=== PATIENT | male | born 1980 | race Caucasian/White ===

== ENCOUNTER 2017-05-12 21:36 | Inpatient (IN) | payer BC ==
[~2017-05-12] VITALS: Ht 182.9 cm; Wt 113.8 kg
[~2017-05-12 21:36] MED LIST: AMOX875T PO; GEMF600T3 PO; LPT40 PO; METF500T5 PO; NAPR1TAB9 PO; NEOMOIN2 TOP; NIAC1TAB56 PO; NSP500 PO; OMEG-59 PO; PRLSR20 PO; [UNRECOGNIZED DRUG - CODE] PO
[2017-05-12] MEDS ORDERED: MoRPHine SULFATE 10 MG/ML CARP/VIAL IV STA ×2 (22:11→23:24)
[2017-05-12] MEDS ORDERED: ONDANSETRON INJ 2 MG/ML 2 ML VIAL IV STA (22:11)
[2017-05-12] MEDS ORDERED: OPTIRAY 320 IV PRN (22:15)
[2017-05-12] MEDS ORDERED: SODIUM CHLORIDE 0.9% 1000ML 1,000 ML IV ONE (22:15)
[2017-05-12] MEDS ORDERED: METF-384 PO (22:38)
[2017-05-12] MEDS ORDERED: ASPEC325 PO (22:38)
[2017-05-12] MEDS ORDERED: ACET-1311 PO (22:38)
[2017-05-13 00:14] LABS: HEMATOCRIT 37.9 % (42-52); MEAN CELL VOLUME 82.2 fL (80-100); MEAN CORPUSCULAR HEMOGLOBIN 28.9 pg (25-34); MEAN CORPUSCULAR HGB CONC 35.2 g/dl (32-36); MEAN PLATELET VOLUME 9.5 fL (7.4-10.4); PLATELET COUNT 374 K/uL (130-400); RED BLOOD COUNT 4.64 M/uL (4.7-6.1); WHITE BLOOD COUNT 13.21 K/uL (4.8-10.8)
[2017-05-13 00:16] LABS: ANISOCYTOSIS PRESENT; BASO % 0.4 %; BASO ABS # 0.05 K/uL (0-0.2); COMPLETE YES; EOS % 1.3 %; IG% 1.2 %; LYMPH % 19.9 %; LYMPH ABS # 2.63 K/uL (1.2-3.4); NEUT % 70.2 %; POLYCHROMASIA 1+
[2017-05-13 01:00] LABS: ALB/GLOB RATIO 1.3 (0.9-2); BUN/CREATININE RATIO 15.5 (10-20); CREATININE 0.91 mg/dl (0.60-1.40); POTASSIUM 3.7 mmol/L (3.5-5.1)
[2017-05-13] MEDS ORDERED: ONDANSETRON INJ 2 MG/ML 2 ML VIAL IV STA (01:18)
[2017-05-13] MEDS ORDERED: HYDROmorphone INJ 0.5 MG/0.5 ML SYR IV STA (01:18)
[2017-05-13] MEDS ORDERED: GLUCOSE 10 TABS/TUBE PO PRN (02:00)
[2017-05-13] MEDS ORDERED: ONDANSETRON INJ 2 MG/ML 2 ML VIAL IV PRN (02:00)
[2017-05-13] MEDS ORDERED: GLUCOSE 40% GEL 15 GM TUBE PO PRN (02:00)
[2017-05-13] MEDS ORDERED: LORAZEPAM 2 MG/ML 1 ML VIAL IV PRN (02:00)
[2017-05-13] MEDS ORDERED: KETOROLAC TROMETHAMINE 30 MG/ML VIAL IV PRN (02:00)
[2017-05-13] MEDS ORDERED: DEXTROSE 50% 50 ML SYR IV PRN (02:00)
[2017-05-13] MEDS ORDERED: TRAMADOL HCL 50 MG TAB PO PRN (02:00)
[2017-05-13] MEDS ORDERED: ACETAMINOPHEN 325 MG TAB PO PRN (02:00)
[2017-05-13] MEDS ORDERED: GLUCAGON FOR INJ 1 MG VIAL SQ PRN (02:00)
[2017-05-13 02:04] LABS: MAGNESIUM 1.5 mg/dl (1.8-2.4)
[2017-05-13 02:52] VITALS: BP 142/92; PULSE 92; TEMP 36.9; O2SAT 97
[2017-05-13] MEDS ORDERED: INSULIN ASPART 100 UNITS/ML 3 ML PEN SC ONE (03:00)
[2017-05-13] MEDS ORDERED: INSULIN GLARGINE SOLOSTAR 100 UNITS/ML 3 ML PEN SC ONE (03:00)
[2017-05-13] MEDS: LACTATED RINGER'S 1000ML 1,000 ML IV SCH ×5 (03:26→21:18)
--- NOTE | 2017-05-13 03:28 | EMERGENCY ROOM VISIT NOTE ---
History First contact with patient: 22:05 Chief Complaint: ABDOMINAL PAIN Stated Complaint: PANCREATITIS Nursing Triage Summary: Patient reports abdominal pain. Patient has had pancreatitis in the past and states it feels like the same pain. History of Present Illness The patient is a 36 year old male who presents to the Emergency Room with complaints of epigastric abdominal pain that began acutely about one hour ago. The patient has a well-established history of pancreatitis, and he states this feels identical to those episodes. He is nauseated with emesis. He does not have fever, chills, chest pain, or lower abdominal pain. The patient has not taken anything [id number] for his symptoms. He rates his discomfort a 10/ 10. Review of Systems More than 10 systems were reviewed and otherwise negative with the exception of history of present illness. Past Medical/Surgical History Medical Problems: (1) Choledochal cyst (2) Pancreatitis (3) Pancreatitis Surgical Problems: (1) Hx of cholecystectomy Family History Cancer Diabetes mellitus Hypertension Social History Smoking Status: Former Smoker Alcohol Use: none Housing Status: lives with family Occupation Status: employed Current/Historical Medications Scheduled Aspirin (Aspirin), 325 MG PO HS Atorvastatin (Atorvastatin Calcium), 40 MG PO QPM Gemfibrozil (Lopid), 600 MG PO BID Metformin Hcl (Glucophage), 1,000 MG PO BID Niacin (Niacin ER), 500 MG PO QPM Niacin (Antihyperlipidemic) (Niacin Er), 1,000 MG PO QPM [place] 3 Fatty Acids-Evening Pr (Retaine Om3), 2 CAP PO BID Omeprazole (Prilosec), 20 MG PO DAILY Scheduled PRN Acetaminophen (Tylenol), 650 MG PO Q6 PRN for Pain Allergies Coded Allergies: No Known Allergies (Unverified , 05/12/17) Physical Exam Vital Signs Date Time Temp Pulse Resp B/P (MAP) Pulse Ox O2 Delivery O2 Flow Rate FiO2 05/13/17 01:20 81 16 131/76 99 Room Air 05/13/17 00:00 80 16 133/78 99 05/12/17 21:51 36.7 84 20 164/105 99 Room Air Pain Rating (0-10): 0 Physical Exam VITALS: Vitals are noted on the nurse's note and reviewed by myself. Vital signs stable. GENERAL: Well-developed, well-nourished, white male, who is in moderate discomfort secondary to his stated complaint. He has holding his anterior abdomen with his hands. He is cooperative with the exam. HEART: Regular rate and rhythm without murmurs gallops or rubs. LUNGS: Clear to auscultation bilaterally without wheezes, rales or rhonchi. No retractions or accessory muscle use. ABDOMEN: Positive normal bowel sounds x 4. Soft with exquisite epigastric tenderness on palpation. No lower abdominal tenderness. No CVA tenderness. Medical Decision & Procedures ER Provider Diagnostic Interpretation: Preliminary Findings Only See Final Report For Complete Findings CT ABDOMEN & PELVIS: Enlargement of the pancreas. Peripancreatic inflammation along the anterior pancreas. Findings are concerning for acute pancreatitis. No fluid collection or pseudocyst identified. The portal vein and splenic vein and superior mesenteric veins appear patent. 1.2 cm stone in the proximal right ureter without significant hydronephrosis. This is new compared to prior exam on 08/14/2015. Likely reactive inflammation of the stomach antrum/duodenal bulb. Dependent atelectasis bilaterally. Hepatic steatosis is again noted. Hepatomegaly. Status post cholecystectomy. Stable small hypodensity in the left kidney is too small to definitively characterize but likely represents a cyst. Normal appendix. No bowel obstruction or inflammation. Anastomotic suture line noted in the small bowel in the right mid abdomen. Probable punctate bone islands in the pelvic bones. Laboratory Results 05/12/17 21:20 Red Blood Count 4.64, Mean Corpuscular Volume 82.2, Mean Corpuscular Hemoglobin 28.9, Mean Corpuscular Hemoglobin Concent 35.2, Mean Platelet Volume 9.5, Neutrophils (%) (Auto) 70.2, Lymphocytes (%) (Auto) 19.9, Monocytes (%) (Auto) 7.0, Eosinophils (%) (Auto) 1.3, Basophils (%) (Auto) 0.4, Neutrophils # (Auto) 9.27, Lymphocytes # (Auto) 2.63, Monocytes # (Auto) 0.93, Eosinophils # (Auto) 0.17, Basophils # (Auto) 0.05 05/12/17 23:52 Test 05/12/17 21:20 05/12/17 23:52 White Blood Count 13.21 K/uL (4.8-10.8) Red Blood Count 4.64 M/uL (4.7-6.1) Hemoglobin 14.1 g/dL (14.0-18.0) Hematocrit 37.9 % (42-52) Mean Corpuscular Volume 82.2 fL (80-100) Mean Corpuscular Hemoglobin 28.9 pg (25-34) Mean Corpuscular Hemoglobin Concent 35.2 g/dl (32-36) Platelet Count 374 K/uL (130-400) Mean Platelet Volume 9.5 fL (7.4-10.4) Neutrophils (%) (Auto) 70.2 % Lymphocytes (%) (Auto) 19.9 % Monocytes (%) (Auto) 7.0 % Eosinophils (%) (Auto) 1.3 % Basophils (%) (Auto) 0.4 % Neutrophils # (Auto) 9.27 K/uL (1.4-6.5) Lymphocytes # (Auto) 2.63 K/uL (1.2-3.4) Monocytes # (Auto) 0.93 K/uL (0.11-0.59) Eosinophils # (Auto) 0.17 K/uL (0-0.5) Basophils # (Auto) 0.05 K/uL (0-0.2) RDW Standard Deviation 42.4 fL (36.4-46.3) RDW Coefficient of Variation 14.6 % (11.5-14.5) Immature Granulocyte % (Auto) 1.2 % Immature Granulocyte # (Auto) 0.16 K/uL (0.00-0.02) Polychromasia 1+ Anisocytosis PRESENT Anion Gap 7.0 mmol/L (3-11) Est Creatinine Clear Calc Drug Dose 146.2 ml/min Estimated GFR () 125.2 Estimated GFR (Non- 108.0 BUN/Creatinine Ratio 15.5 (10-20) Calcium Level 9.0 mg/dl (8.5-10.1) Magnesium Level 1.5 mg/dl (1.8-2.4) Total Bilirubin 0.3 mg/dl (0.2-1) Aspartate Amino Transf (AST/SGOT) 20 U/L (15-37) Alanine Aminotransferase (ALT/SGPT) 40 U/L (12-78) Alkaline Phosphatase 67 U/L (45-117) Total Protein 6.8 gm/dl (6.4-8.2) Albumin 3.9 gm/dl (3.4-5.0) Globulin 2.9 gm/dl (2.5-4.0) Albumin/Globulin Ratio 1.3 (0.9-2) Amylase Level 639 U/L (25-115) Lipase 9917 U/L (73-393) Chemistry Specimen Hemolysis Medications Administered Medications (Trade) Dose Ordered Sig/Rogelio Route Start Time Stop Time Status Last Admin Dose Admin Sodium Chloride 1,000 ml @ 999 mls/hr Q1H1M ONCE IV 05/12/17 22:15 05/12/17 23:15 DC 05/12/17 22:31 999 MLS/HR Morphine Sulfate (MoRPHine SULFATE INJ) 8 mg NOW STAT IV 05/12/17 22:11 05/12/17 22:13 DC 05/12/17 22:32 8 MG Ondansetron HCl (Zofran Inj) 4 mg NOW STAT IV 05/12/17 22:11 05/12/17 22:13 DC 05/12/17 22:31 4 MG Morphine Sulfate (MoRPHine SULFATE INJ) 8 mg NOW STAT IV 05/12/17 23:24 05/12/17 23:25 DC 05/13/17 00:04 8 MG Ondansetron HCl (Zofran Inj) 4 mg NOW STAT IV 05/13/17 01:18 05/13/17 01:19 DC 05/13/17 01:27 4 MG Hydromorphone HCl (Dilaudid Inj) 0.5 mg NOW STAT IV 05/13/17 01:18 05/13/17 01:19 DC 05/13/17 01:28 0.5 MG ED Course Physical exam and history were performed. Nursing notes, EMR, and Medication List were personally reviewed. Patient appears to have severe epigastric abdominal pain that began just prior to arrival. The patient appears very comfortable on examination. He has a history of pancreatitis. IV access was established and labs were obtained. The patient was hydrated medicated as above. CT scan was performed. The patient's blood work is as above and was reviewed. He does have a slightly elevated white blood cell count. He does not have a significant anemia or gross electrolyte imbalance. His lipase is markedly elevated at 9900. He does have elevation of his amylase as well. CT scan of his abdomen does confirm acute pancreatitis. The patient required multiple rounds of pain medication to remain comfortable here in the department. I discussed the case with the on-call [facility] hospitalist, who agreed to evaluate the patient here in the department for further Management. Please see their dictation for further patient course, plan , and disposition. The chart was completed utilizing [employer] Speech Voice Recognition Software. Grammatical errors, random word insertions, pronoun errors, and incomplete sentences are an occasional consequence of this system due to software limitations, ambient noise, and hardware issues. Any formal questions or concerns about the content, text, or information contained within the body of this dictation should be directly addressed to the provider for clarification. . Medical Decision Differential diagnosis: Etiologies such as appendicitis, diverticulitis, PUD, biliary pathology, UTI, pancreatitis, obstruction, mesenteric ischemia, aortic pathology, infections, inflammatory bowel disease, renal colic, as well as others were entertained. Impression Primary Impression: Acute pancreatitis Departure Information Dispostion Admitted as an inpatient Condition FAIR Referrals Kobi Beck DFlorindaOFlorinda (PCP) Forms Call Back Authorization, HOME CARE DOCUMENTATION FORM, IMPORTANT VISIT INFORMATION Patient Instructions [facility] Problem Qualifiers Primary Impression: Acute pancreatitis Pancreatitis type: unspecified pancreatitis type Acute pancreatitis complication: unspecified Qualified Codes: K85.90 - Acute pancreatitis without necrosis or infection, unspecified
[2017-05-13] MEDS ORDERED: NURSING VERBAL MED ORDER ONE (03:30)
[2017-05-13] MEDS ORDERED: LORAZEPAM INJ 0.5 MG in SYRINGE 0.75 ML IV PRN (03:45)
--- NOTE | 2017-05-13 04:31 | HISTORY & PHYSICAL EXAMINATION ---
DATE OF ADMISSION: 05/13/2017 PRIMARY CARE PHYSICIAN: Dr. Beck CHIEF COMPLAINT: Abdominal pain. HISTORY OF PRESENT ILLNESS: History obtained from patient and records. Medical history significant for recurrent pancreatitis, hypertriglyceridemia lipidemia (periodic plasmapheresis), past tobacco abuse, choledochal cyst status post surgery, DM2 on oral meds. Recent confinement July 2015 for recurrent pancreatitis. Resolved with conservative management. Px undergoes plasmapheresis for hypertriglyceridemia at [facility] every other week. Last night, patient had achy epigastric pain going down his belly with nausea and vomiting reminiscent of pancreatitis pain. No fever, no chills. Viral illness last week as per patient. He had 2 hotdogs and cheesy broccoli at home. MEDICAL HISTORY: As above. SURGERIES: Tonsillectomy, discectomy, choledocholithiasis surgery. HOME MEDICATIONS: Include niacin, Prilosec, Tylenol, aspirin, atorvastatin, Lopid, Glucophage. ALLERGIES: No known drug allergies. FAMILY HISTORY: Heart disease, diabetes. PERSONAL AND SOCIAL HISTORY: Past tobacco abuse. No intake of alcoholic beverages. [employer] employee. REVIEW OF SYSTEMS: As per HPI, all other ROS negative. PHYSICAL EXAMINATION: VITAL SIGNS: Blood pressure initially 164/105 and later 135/76, pulse rate 81, RR 16, temperature 36.7, sats 98 on room air. GENERAL: Noted to be obese, slightly uncomfortable. No respiratory distress. SKIN: Normal color. HEENT: [place] palpebral conjunctivae. Dry mucosa. NECK: No JVD. Supple. CHEST: Clear to auscultation. HEART: Regular rate and rhythm. ABDOMEN: Some distention. Healed incisional scar. No overt tenderness. EXTREMITIES: No edema. Nontender. NEUROLOGIC: No gross focality. LABS: Hemoglobin was noted to be 14.1, hematocrit 37.9, white cells 13.6, platelets 200. Sodium 140, potassium 3.7, chloride 109, CO2 of 26, BUN 40, creatinine 0.9, glucose was noted to be 194. Lipase was noted to be 99K. April 2017 triglycerides 1671. Hemoglobin A1c from March 2017 was 7. 6. ASSESSMENT: 1. Recurrent pancreatitis history of hypertriglyceridemia, [place] [facility] of choledochal cyst status post surgery 2. DM2 reasonable control as of recent outxp HgA1c 3. past tobacco abuse. PLAN: GMF IV fluids, analgesia, bowel rest. Follow lipase. Check serum triglyceride levels. GI consult. RE Recurrent pancreatitis Basal insulin, ISS BG goal 140-180. DVT prophylaxis with Lovenox subQ. Full code. MTDD
[2017-05-13] MEDS: HYDROmorphone INJ 0.5 MG/0.5 ML SYR IV PRN ×3 (04:40→18:20)
[2017-05-13] MEDS: MAGNESIUM SULFATE 1GM / D5W 1 GM in PREMIXED IN D5W 100 ML IV SCH ×2 (04:46→05:55)
[2017-05-13 04:55] VITALS: BP 142/92; PULSE 92; TEMP 36.9; Ht 182.9 cm; Wt 113.8 kg
[2017-05-13] MEDS: INSULIN ASPART 100 UNITS/ML 3 ML PEN SC SCH ×4 (06:37→20:42)
[2017-05-13 07:03] LABS: BASO % 0.2 %; BASO ABS # 0.03 K/uL (0-0.2); COMPLETE YES; EOS % 0.6 %; IG% 0.5 %; LYMPH % 14.1 %; LYMPH ABS # 1.84 K/uL (1.2-3.4); MEAN CORPUSCULAR HEMOGLOBIN 30.3 pg (25-34); MEAN CORPUSCULAR HGB CONC 37.4 g/dl (32-36); MEAN PLATELET VOLUME 9.1 fL (7.4-10.4); MONO % 4.8 %; NEUT % 79.8 %; PLATELET COUNT 264 K/uL (130-400); RED BLOOD COUNT 4.32 M/uL (4.7-6.1); WHITE BLOOD COUNT 13.03 K/uL (4.8-10.8)
--- NOTE | 2017-05-13 07:22 | DIAGNOSTIC IMAGING REPORT ---
CT OF THE ABDOMEN AND PELVIS WITH CONTRAST CLINICAL HISTORY: Epigastric pain, nausea and vomiting. History of pancreatitis. COMPARISON STUDY: CT of the abdomen and pelvis August 14, 2015. TECHNIQUE: Following IV administration of 118 mL of Optiray-320, axial images of the abdomen and pelvis were obtained from the lung bases to the proximal femurs. Images were reviewed in the axial, sagittal, and coronal planes. IV contrast was administered without complication. A dose lowering technique was utilized adhering to the principles of ALARA. CT DOSE: 1139.36 mGycm FINDINGS: Airspace opacities within visualized portions the lower lobes favor atelectasis. There is fatty infiltration of liver. There is trace pneumobilia. There is no biliary ductal dilatation status post cholecystectomy. Moderate peripancreatic infiltration centered on the pancreatic head is noted. There is no pancreatic ductal dilatation. The splenic vein is patent. No pseudoaneurysm is identified on this non-CTA exam. There is no evidence for a bowel obstruction. Note is made of a 1.2 x 0.8 cm proximal right ureteral calculus without significant hydronephrosis. The bowel anastomosis is noted. The appendix is normal. There is no lymphadenopathy within the pelvis. No suspicious osseous lesions are present. A hypodense left renal lesion is too small to characterize but unchanged since prior CT. The spleen and adrenal glands are unremarkable. IMPRESSION: 1. Moderate peripancreatic infiltration consistent with acute pancreatitis. No peripancreatic fluid collection. No evidence of gland necrosis by CT. 2. 1.2 x 0.8 cm proximal right ureteral calculus without hydronephrosis. 3. Fatty liver. Trace pneumobilia. No biliary or pancreatic ductal dilatation. Electronically signed by: Jeffy Ayala M.D. 05/13/2017 7:20 AM Dictated Date/Time: 05/13/2017 7:11 AM
[2017-05-13 07:31] VITALS: BP 155/88; PULSE 86; TEMP 37.2; O2SAT 95
[2017-05-13 07:46] LABS: PROTHROMBIN TIME (PATIENT) 10.5 SECONDS (9.0-12.0)
[2017-05-13 08:25] LABS: ALKALINE PHOSPHATASE 62 U/L (45-117); BLOOD UREA NITROGEN 11 mg/dl (7-18); CALCIUM 7.9 mg/dl (8.5-10.1); CARBON DIOXIDE 27 mmol/L (21-32); CHLORIDE 103 mmol/L (98-107); CREATININE 0.85 mg/dl (0.60-1.40); GLUCOSE 187 mg/dl (70-99); SODIUM 139 mmol/L (136-145)
[2017-05-13 08:26] LABS: ALT/SGPT 36 U/L (12-78); BUN/CREATININE RATIO 12.5 (10-20)
[2017-05-13] MEDS: PANTOprazole SOD 40 MG TAB PO SCH (09:17)
[2017-05-13] MEDS: ENOXAPARIN 40 MG/0.4 ML SYR SQ SCH (09:18)
[2017-05-13 09:53] LABS: MAGNESIUM 2.3 mg/dl (1.8-2.4)
--- NOTE | 2017-05-13 10:53 | Gastrointestinal Consultation ---
Gastrointestinal Consultation Date of Consultation: May 13, 2017 Attending Physician: Ranjith Rodriguez Consulting Physician: Ray Crane Reason for Consultation: Pancreatitis History of Present Illness Patient is a 36 year old male who presented yesterday to ED w c/o RUQ/ epigastric abd pain, n/v. He has hx of recurrent pancreatitis secondary to hypertriglyceridemia, also had choledochal cyst resection, s/p cholecystectomy. He undergoes plasmapheresis for his triglyceridemia every other week, is on Niacin, ASA, Lopid, Lipitor, and within the last month his Metformin dose is increased to 1g BID. He was eating cheesy broccoli and hot dogs when his symptoms started. Upon eval in ED, labs showed leukocytosis WBC 13K, no anemia, chem panel w normal LFTs, Lipase over 9K, TG 2716. He had CT abd/pelvis peripancreatic infiltration on pancreas head area, w/o necrosis or fluid collection noted. He was admitted for pancreatitis management, kept NPO, LR IVF started. He was afebrile overnight, hemodynamically stable, renal function normal. Lipase decreased now to 3K, he is reporting less abd pain, no n/v, is passing some flatus but no BMs. Past Medical/Surgical History Medical Problems: (1) Acute pancreatitis Status: Acute (2) Dehydration Status: Acute (3) Postoperative abdominal pain Status: Acute (4) Vomiting Status: Acute Past Medical History: As above, DM II Past Surgical History: As above, Tonsillectomy & Adenoidectomy Family History Cancer Diabetes mellitus Hypertension Social History Smoking Status: Current Every Day Smoker Alcohol Use: none Drug Use: none Housing Status: lives with family Occupation Status: employed Allergies Coded Allergies: No Known Allergies (Unverified , 05/12/17) Current Medications Home Meds and Scripts Medications Dose Route/Sig Max Daily Dose Days Date Category Dose Instructions Tylenol (Acetaminophen) 325 Mg Tab 650 Mg PO Q6 PRN 05/12/17 Reported Aspirin 325 Mg Ectab 325 Mg PO HS 05/12/17 Reported Glucophage (Metformin Hcl) 1,000 Mg Tab 1,000 Mg PO BID 05/12/17 Reported Niacin Er (Niacin (Antihyperlipidemic)) 1,000 Mg Tab 1,000 Mg PO QPM 05/15/15 Reported TAKE WITH NIACIN ER 500MG TO EQUAL 1,500MG DOSE Niacin ER (Niacin) 500 Mg Tabcr 500 Mg PO QPM 05/15/15 Reported TAKE WITH NIACIN ER 1,000MG TO EQUAL 1,500MG DOSE Atorvastatin Calcium (Atorvastatin) 40 Mg Tab 40 Mg PO QPM 05/15/15 Reported Retaine Om3 ([place] 3 Fatty Acids-Evening Pr) 1 Cap Cap 2 Cap PO BID 05/15/15 Reported Prilosec (Omeprazole) 20 Mg Capcr 20 Mg PO DAILY 06/03/14 Reported Lopid (Gemfibrozil) 600 Mg Tab 600 Mg PO BID 06/03/14 Reported Review of Systems Constitutional: No fever, No chills Respiratory: No cough, No shortness of breath Cardiac: No chest pain, No edema Abdomen: + pain (improved), No nausea, No vomiting Physical Exam Date Time Temp Pulse Resp B/P (MAP) Pulse Ox O2 Delivery O2 Flow Rate FiO2 05/13/17 07:31 37.2 86 18 155/88 (110) 95 Room Air 05/13/17 04:55 36.9 92 20 142/92 Room Air 05/13/17 02:52 36.9 92 20 142/92 (109) 97 Room Air 05/13/17 01:20 81 16 131/76 99 Room Air 05/13/17 00:00 80 16 133/78 99 05/12/17 21:51 36.7 84 20 164/105 99 Room Air General Appearance: WD/WN, no apparent distress Eyes: normal inspection, PERRL, EOMI Neck: supple, no JVD, trachea midline Respiratory/Chest: normal breath sounds, no respiratory distress, no accessory muscle use Cardiovascular: regular rate, rhythm, no gallop, no murmur Abdomen: normal bowel sounds, soft, + tenderness (RUQ) Extremities: normal inspection, no pedal edema, no calf tenderness Neurologic/Psych: alert, normal mood/affect, oriented x 3 Skin: normal color, no jaundice, no rash Laboratory Results Last 24 Hours Test 05/12/17 21:20 05/12/17 22:20 05/12/17 23:52 05/13/17 03:32 White Blood Count 13.21 K/uL Red Blood Count 4.64 M/uL Hemoglobin 14.1 g/dL Hematocrit 37.9 % Mean Corpuscular Volume 82.2 fL Mean Corpuscular Hemoglobin 28.9 pg Mean Corpuscular Hemoglobin Concent 35.2 g/dl Platelet Count 374 K/uL Mean Platelet Volume 9.5 fL Neutrophils (%) (Auto) 70.2 % Lymphocytes (%) (Auto) 19.9 % Monocytes (%) (Auto) 7.0 % Eosinophils (%) (Auto) 1.3 % Basophils (%) (Auto) 0.4 % Neutrophils # (Auto) 9.27 K/uL Lymphocytes # (Auto) 2.63 K/uL Monocytes # (Auto) 0.93 K/uL Eosinophils # (Auto) 0.17 K/uL Basophils # (Auto) 0.05 K/uL RDW Standard Deviation 42.4 fL RDW Coefficient of Variation 14.6 % Immature Granulocyte % (Auto) 1.2 % Immature Granulocyte # (Auto) 0.16 K/uL Polychromasia 1+ Anisocytosis PRESENT Triglycerides Level 2716 mg/dl Sodium Level 142 mmol/L Potassium Level 3.7 mmol/L Chloride Level 109 mmol/L Carbon Dioxide Level 26 mmol/L Anion Gap 7.0 mmol/L Blood Urea Nitrogen 14 mg/dl Creatinine 0.91 mg/dl Est Creatinine Clear Calc Drug Dose 146.2 ml/min Estimated GFR () 125.2 Estimated GFR (Non- 108.0 BUN/Creatinine Ratio 15.5 Random Glucose 194 mg/dl Calcium Level 9.0 mg/dl Magnesium Level 1.5 mg/dl Total Bilirubin 0.3 mg/dl Aspartate Amino Transf (AST/SGOT) 20 U/L Alanine Aminotransferase (ALT/SGPT) 40 U/L Alkaline Phosphatase 67 U/L Total Protein 6.8 gm/dl Albumin 3.9 gm/dl Globulin 2.9 gm/dl Albumin/Globulin Ratio 1.3 Amylase Level 639 U/L Lipase 9917 U/L Chemistry Specimen Hemolysis Bedside Glucose 169 mg/dl Test 05/13/17 06:33 05/13/17 06:40 05/13/17 08:31 Bedside Glucose 156 mg/dl White Blood Count 13.03 K/uL Red Blood Count 4.32 M/uL Hemoglobin 13.1 g/dL Hematocrit 35.0 % Mean Corpuscular Volume 81.0 fL Mean Corpuscular Hemoglobin 30.3 pg Mean Corpuscular Hemoglobin Concent 37.4 g/dl Platelet Count 264 K/uL Mean Platelet Volume 9.1 fL Neutrophils (%) (Auto) 79.8 % Lymphocytes (%) (Auto) 14.1 % Monocytes (%) (Auto) 4.8 % Eosinophils (%) (Auto) 0.6 % Basophils (%) (Auto) 0.2 % Neutrophils # (Auto) 10.39 K/uL Lymphocytes # (Auto) 1.84 K/uL Monocytes # (Auto) 0.63 K/uL Eosinophils # (Auto) 0.08 K/uL Basophils # (Auto) 0.03 K/uL RDW Standard Deviation 42.4 fL RDW Coefficient of Variation 14.5 % Immature Granulocyte % (Auto) 0.5 % Immature Granulocyte # (Auto) 0.06 K/uL Nucleated RBC Absolute Count (auto) 0.12 K/uL Nucleated Red Blood Cells % 0.9 % Prothrombin Time 10.5 SECONDS Prothromb Time International Ratio 1.0 Activated Partial Thromboplast Time 27.0 SECONDS Partial Thromboplastin Ratio 1.0 Sodium Level 139 mmol/L Potassium Level mmol/L 4.0 mmol/L Carbon Dioxide Level 27 mmol/L Anion Gap 9.0 mmol/L Blood Urea Nitrogen 11 mg/dl Creatinine 0.85 mg/dl Est Creatinine Clear Calc Drug Dose 156.5 ml/min Estimated GFR () 129.9 Estimated GFR (Non- 112.1 BUN/Creatinine Ratio 12.5 Random Glucose 187 mg/dl Calcium Level 7.9 mg/dl Magnesium Level mg/dl 2.3 mg/dl Total Bilirubin 0.7 mg/dl Aspartate Amino Transf (AST/SGOT) U/L 19 U/L Alanine Aminotransferase (ALT/SGPT) 36 U/L Alkaline Phosphatase 62 U/L Total Protein 6.9 gm/dl Albumin 3.5 gm/dl Globulin 3.4 gm/dl Albumin/Globulin Ratio 1.0 Lipase 3641 U/L Impression Patient is a 36 year old male w hx of recurrent pancreatitis secondary to hypertriglyceridemia, s/p choledochal cyst resection, cholecystectomy; presented to ED w s/s of RUQ & epigastric pain, n/v after eating a fatty meal. Imaging studies, labs consistent w acute pancreatitis w/o fluid collection or necrosis. Plan - LR @ 200ml/hr - Ok to start CL diet; eventually may advance to low fat/low cholesterol meal - Symptomatic management w antiemetics and analgesics prn - Continue hypertriglyceridemia/DM med management & plasmapheresis per Cardiology. I saw and evaluated the patient. He presents with recurrent pancreatitis which is thought to be related to his history of familial triglyceridemia. 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 At this time I would suggest continued IV hydration and a liquid diet as you're doing. I would also suggest follow-up evaluation with his cardiology provider to determine if his plasmapheresis should be altered. Please call with any questions or concerns during the remainder of this admission. Recommendations IV hydration with LR 200 mL per hour Clear liquid diet today Daily labs Cardiology evaluation Please call with any questions or concerns
[2017-05-13 15:20] VITALS: BP 163/95; PULSE 94; TEMP 37.6; O2SAT 95
--- NOTE | 2017-05-13 16:39 | Progress Note ---
Internal Med Progress Note Date of Service: May 13, 2017. Provider Documentation: SUBJECTIVE: resting comfortably abdominal apin and nausea better tolerating clears afebrile no sob OBJECTIVE: Vital Signs-as noted below Exam: General-alert and oriented. Not in distress ENT-normal hearing Neck-no neck masses Lungs-cta b/l no wheezing no crackles present Heart-s1 and s2 heard regular rhythm, no murmurs Abdomen-soft bowel sounds present mild diffuse tender no distension Extremities no edema present no erythema Neuro-alert and oriented moves extremities Lab data as noted below. ASSESSMENT & PLAN: 1. 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 DM2 reasonable control as of recent outxp HgA1c Holding metformin.ISS. Will monitor. 3. past tobacco abuse DVT PROPHYLAXIS Lovenox DISPOSITION to be determined Vital Signs: Date Time Temp Pulse Resp B/P (MAP) Pulse Ox O2 Delivery O2 Flow Rate FiO2 05/13/17 15:20 37.6 94 18 163/95 (117) 95 Room Air 05/13/17 11:06 Room Air 05/13/17 07:31 37.2 86 18 155/88 (110) 95 Room Air 05/13/17 04:55 36.9 92 20 142/92 Room Air 05/13/17 02:52 36.9 92 20 142/92 (109) 97 Room Air 05/13/17 01:20 81 16 131/76 99 Room Air 05/13/17 00:00 80 16 133/78 99 05/12/17 21:51 36.7 84 20 164/105 99 Room Air Lab Results: Results Past 24 Hours Test 05/12/17 21:20 05/12/17 22:20 05/12/17 23:52 05/13/17 03:32 Range/Units White Blood Count 13.21 4.8-10.8 K/uL Red Blood Count 4.64 4.7-6.1 M/uL Hemoglobin 14.1 14.0-18.0 g/dL Hematocrit 37.9 42-52 % Mean Corpuscular Volume 82.2 80-100 fL Mean Corpuscular Hemoglobin 28.9 25-34 pg Mean Corpuscular Hemoglobin Concent 35.2 32-36 g/dl Platelet Count 374 130-400 K/uL Mean Platelet Volume 9.5 7.4-10.4 fL Neutrophils (%) (Auto) 70.2 % Lymphocytes (%) (Auto) 19.9 % Monocytes (%) (Auto) 7.0 % Eosinophils (%) (Auto) 1.3 % Basophils (%) (Auto) 0.4 % Neutrophils # (Auto) 9.27 1.4-6.5 K/uL Lymphocytes # (Auto) 2.63 1.2-3.4 K/uL Monocytes # (Auto) 0.93 0.11-0.59 K/uL Eosinophils # (Auto) 0.17 0-0.5 K/uL Basophils # (Auto) 0.05 0-0.2 K/uL RDW Standard Deviation 42.4 36.4-46.3 fL RDW Coefficient of Variation 14.6 11.5-14.5 % Immature Granulocyte % (Auto) 1.2 % Immature Granulocyte # (Auto) 0.16 0.00-0.02 K/uL Polychromasia 1+ Anisocytosis PRESENT Triglycerides Level 2716 0-150 mg/dl Sodium Level 142 136-145 mmol/L Potassium Level 3.7 3.5-5.1 mmol/L Chloride Level 109 98-107 mmol/L Carbon Dioxide Level 26 21-32 mmol/L Anion Gap 7.0 3-11 mmol/L Blood Urea Nitrogen 14 7-18 mg/dl Creatinine 0.91 0.60-1.40 mg/dl Est Creatinine Clear Calc Drug Dose 146.2 ml/min Estimated GFR () 125.2 Estimated GFR (Non- 108.0 BUN/Creatinine Ratio 15.5 10-20 Random Glucose 194 70-99 mg/dl Calcium Level 9.0 8.5-10.1 mg/dl Magnesium Level 1.5 1.8-2.4 mg/dl Total Bilirubin 0.3 0.2-1 mg/dl Aspartate Amino Transf (AST/SGOT) 20 15-37 U/L Alanine Aminotransferase (ALT/SGPT) 40 12-78 U/L Alkaline Phosphatase 67 45-117 U/L Total Protein 6.8 6.4-8.2 gm/dl Albumin 3.9 3.4-5.0 gm/dl Globulin 2.9 2.5-4.0 gm/dl Albumin/Globulin Ratio 1.3 0.9-2 Amylase Level 639 25-115 U/L Lipase 9917 73-393 U/L Chemistry Specimen Hemolysis Bedside Glucose 169 70-99 mg/dl Test 05/13/17 06:33 05/13/17 06:40 05/13/17 08:31 05/13/17 11:27 Range/Units Bedside Glucose 156 150 70-99 mg/dl White Blood Count 13.03 4.8-10.8 K/uL Red Blood Count 4.32 4.7-6.1 M/uL Hemoglobin 13.1 14.0-18.0 g/dL Hematocrit 35.0 42-52 % Mean Corpuscular Volume 81.0 80-100 fL Mean Corpuscular Hemoglobin 30.3 25-34 pg Mean Corpuscular Hemoglobin Concent 37.4 32-36 g/dl Platelet Count 264 130-400 K/uL Mean Platelet Volume 9.1 7.4-10.4 fL Neutrophils (%) (Auto) 79.8 % Lymphocytes (%) (Auto) 14.1 % Monocytes (%) (Auto) 4.8 % Eosinophils (%) (Auto) 0.6 % Basophils (%) (Auto) 0.2 % Neutrophils # (Auto) 10.39 1.4-6.5 K/uL Lymphocytes # (Auto) 1.84 1.2-3.4 K/uL Monocytes # (Auto) 0.63 0.11-0.59 K/uL Eosinophils # (Auto) 0.08 0-0.5 K/uL Basophils # (Auto) 0.03 0-0.2 K/uL RDW Standard Deviation 42.4 36.4-46.3 fL RDW Coefficient of Variation 14.5 11.5-14.5 % Immature Granulocyte % (Auto) 0.5 % Immature Granulocyte # (Auto) 0.06 0.00-0.02 K/uL Nucleated RBC Absolute Count (auto) 0.12 0-0 K/uL Nucleated Red Blood Cells % 0.9 % Prothrombin Time 10.5 9.0-12.0 SECONDS Prothromb Time International Ratio 1.0 0.9-1.1 Activated Partial Thromboplast Time 27.0 21.0-31.0 SECONDS Partial Thromboplastin Ratio 1.0 Sodium Level 139 136-145 mmol/L Potassium Level 4.0 3.5-5.1 mmol/L Carbon Dioxide Level 27 21-32 mmol/L Anion Gap 9.0 3-11 mmol/L Blood Urea Nitrogen 11 7-18 mg/dl Creatinine 0.85 0.60-1.40 mg/dl Est Creatinine Clear Calc Drug Dose 156.5 ml/min Estimated GFR () 129.9 Estimated GFR (Non- 112.1 BUN/Creatinine Ratio 12.5 10-20 Random Glucose 187 70-99 mg/dl Calcium Level 7.9 8.5-10.1 mg/dl Magnesium Level 2.3 1.8-2.4 mg/dl Total Bilirubin 0.7 0.2-1 mg/dl Aspartate Amino Transf (AST/SGOT) 19 15-37 U/L Alanine Aminotransferase (ALT/SGPT) 36 12-78 U/L Alkaline Phosphatase 62 45-117 U/L Total Protein 6.9 6.4-8.2 gm/dl Albumin 3.5 3.4-5.0 gm/dl Globulin 3.4 2.5-4.0 gm/dl Albumin/Globulin Ratio 1.0 0.9-2 Lipase 3641 73-393 U/L
[2017-05-13 16:43] VITALS: O2SAT 95
[2017-05-13] MEDS: ASPIRIN 325 MG ECTAB PO SCH (20:36)
[2017-05-13 23:33] VITALS: BP 145/76; PULSE 93; TEMP 37.3; O2SAT 94
[2017-05-14] MEDS: HYDROmorphone INJ 0.5 MG/0.5 ML SYR IV PRN (00:56)
[2017-05-14] MEDS: LACTATED RINGER'S 1000ML 1,000 ML IV SCH ×3 (02:24→15:58)
[2017-05-14] MEDS ORDERED: NURSING DECISION MEDICATION ORDER SCH (02:45)
[2017-05-14 07:48] VITALS: BP 120/79; PULSE 94; TEMP 37.2; O2SAT 97
[2017-05-14] MEDS: ENOXAPARIN 40 MG/0.4 ML SYR SQ SCH (07:52)
[2017-05-14] MEDS: PANTOprazole SOD 40 MG TAB PO SCH (07:52)
[2017-05-14] MEDS: INSULIN GLARGINE SOLOSTAR 100 UNITS/ML 3 ML PEN SC SCH (07:57)
[2017-05-14] MEDS: INSULIN ASPART 100 UNITS/ML 3 ML PEN SC SCH ×4 (07:57→20:32)
[2017-05-14 10:09] LABS: BUN/CREATININE RATIO 7.2 (10-20); CALCIUM 9.1 mg/dl (8.5-10.1); CREATININE 0.79 mg/dl (0.60-1.40); POTASSIUM 3.4 mmol/L (3.5-5.1)
[2017-05-14 10:13] LABS: HEMATOCRIT 36.5 % (42-52); MEAN CELL VOLUME 82.4 fL (80-100); MEAN CORPUSCULAR HEMOGLOBIN 27.8 pg (25-34); MEAN CORPUSCULAR HGB CONC 33.7 g/dl (32-36); MEAN PLATELET VOLUME 9.4 fL (7.4-10.4); PLATELET COUNT 217 K/uL (130-400); RED BLOOD COUNT 4.43 M/uL (4.7-6.1); WHITE BLOOD COUNT 10.86 K/uL (4.8-10.8)
--- NOTE | 2017-05-14 10:13 | Gastroenterology Progress Note ---
Progress Note Date of Service: May 14, 2017 Subjective Pt evaluation today including: conversation w/ patient, physical exam, chart review, lab review, review of inpatient medication list Pt feels much better than yesterday, denies any abd pain, n/v. Tolerating CL diet. Did have mild fever yesterday afternoon 37.6, none since then. AM labs pending. Review of Systems Constitutional: No fever, No chills Respiratory: No cough, No shortness of breath Cardiac: No chest pain Abdomen: No pain, No nausea, No vomiting Medications Current Inpatient Medications Medications (Trade) Dose Ordered Sig/Rogelio Route Start Time Stop Time Status Last Admin Dose Admin Ioversol (Optiray 320) 100 ml UD PRN IV 05/12/17 22:15 05/16/17 22:14 Lactated Ringer's 1,000 ml @ 75 mls/hr [id number] IV 05/13/17 01:30 06/12/17 01:29 05/14/17 07:53 200 MLS/HR Insulin Glargine (Lantus Solostar Pen) 5 units DAILY SC 05/14/17 09:00 06/13/17 08:59 05/14/17 07:57 5 UNITS Glucose (Glucose 40% Gel) 15-30 GRAMS 15 GRAMS... UD PRN PO 05/13/17 02:00 06/12/17 01:59 Glucose (Glucose Chew Tab) 4-8 Tablets 4 Tabl... UD PRN PO 05/13/17 02:00 06/12/17 01:59 Dextrose (Dextrose 50% 50ML Syringe) 25-50ML OF 50% DW IV FOR... UD PRN IV 05/13/17 02:00 06/12/17 01:59 Glucagon (Glucagon Inj) 1 mg UD PRN SQ 05/13/17 02:00 06/12/17 01:59 Enoxaparin Sodium (Lovenox Inj) 40 mg Q24H SQ 05/13/17 09:00 06/12/17 08:59 05/14/17 07:52 40 MG Acetaminophen (Tylenol Tab) 650 mg Q4H PRN PO 05/13/17 02:00 06/12/17 01:59 05/13/17 09:18 650 MG Aspirin (Ecotrin Tab) 325 mg HS PO 05/13/17 21:00 06/12/17 20:59 05/13/17 20:36 325 MG Pantoprazole Sodium (Protonix Tab) 40 mg QAM PO 05/13/17 09:00 06/12/17 08:59 05/14/17 07:52 40 MG Ketorolac Tromethamine (Toradol Inj) 30 mg Q6H PRN IV 05/13/17 02:00 05/18/17 01:59 Hydromorphone HCl (Dilaudid Inj) 0.5 mg Q3H PRN IV 05/13/17 02:00 05/27/17 01:59 05/14/17 00:56 0.5 MG Lorazepam (Ativan Inj) 0.5 mg Q4H PRN IV 05/13/17 02:00 06/12/17 01:59 Ondansetron HCl (Zofran Inj) 4 mg Q6H PRN IV 05/13/17 02:00 06/12/17 01:59 Tramadol HCl (Ultram Tab) not relieved ... Q6H PRN PO 05/13/17 02:00 06/12/17 01:59 Lorazepam 0.5 mg/ Syringe 1 ml @ 1 mls/min Q4H PRN IV 05/13/17 03:45 06/12/17 03:44 05/13/17 21:18 1 MLS/MIN Insulin Aspart (novoLOG ASPART) SLIDING SCALE If C... ACHS SC 05/14/17 06:30 06/13/17 06:29 05/14/17 07:57 3 UNITS Objective Vital Signs Date Time Temp Pulse Resp B/P (MAP) Pulse Ox O2 Delivery O2 Flow Rate FiO2 05/14/17 07:48 37.2 94 18 120/79 (93) 97 Room Air 05/14/17 07:23 Room Air 05/14/17 00:00 Room Air 05/13/17 23:33 37.3 93 20 145/76 (99) 94 Room Air 05/13/17 16:43 95 Room Air 05/13/17 15:20 37.6 94 18 163/95 (117) 95 Room Air 05/13/17 11:06 Room Air Physical Exam General Appearance: WD/WN, no apparent distress, + obese Eyes: normal inspection, PERRL, EOMI Neck: supple, no JVD, trachea midline Respiratory/Chest: normal breath sounds, no respiratory distress, no accessory muscle use Cardiovascular: regular rate, rhythm, no gallop, no murmur Abdomen: normal bowel sounds, non tender, soft Extremities: normal inspection, no pedal edema, no calf tenderness Neurologic/Psych: alert, normal mood/affect, oriented x 3 Skin: normal color, no jaundice, no rash Laboratory Results Last 24 Hours Test 05/13/17 11:27 05/13/17 18:06 05/13/17 19:46 05/14/17 07:44 Bedside Glucose 150 mg/dl 195 mg/dl 184 mg/dl 140 mg/dl Test 05/14/17 09:15 Assessment and Plan Patient is a 36 year old male w hx of recurrent pancreatitis secondary to hypertriglyceridemia, s/p choledochal cyst resection, cholecystectomy; presented to ED w s/s of RUQ & epigastric pain, n/v after eating a fatty meal. Imaging studies, labs consistent w acute pancreatitis w/o fluid collection or necrosis. He denies any more abd pain, n/v. Tolerating CL diet, AM labs pending. Plans - LR decreased to 75ml/hr - FL diet, advance as tolerated to low fat/low cholesterol meal - Symptomatic management w antiemetics and analgesics prn - Continue hypertriglyceridemia/DM med management & plasmapheresis per Cardiology. - Should be ready for DC by tomorrow. I saw and evaluated the patient. He notes feeling improved today and is without abdominal discomfort. He did tolerate a full liquid diet today. Recommendations Consider obtaining a lipase level today Continue with IV hydration If labs improved and pain-free consider advancing to a low-fat diet and consider planning for discharge on Wednesday. Please call with any questions or concerns GI to sign off
[2017-05-14] MEDS ORDERED: POTASSIUM CHLORIDE 20 MEQ TABCR PO ONE (11:00)
--- NOTE | 2017-05-14 11:23 | Cardiology Consultation ---
Cardiology Consultation Date of Consultation: May 14, 2017 History of Present Illness Jakob Wilhelm is a 36 year old male seen in cardiology consultation per the request of Dr. Rodriguez given presentation with recurrent pancreatitis, and history of familial hypertriglyceridemia. The patient's primary bobcat driver/labor is Dr. Juan Manuel Sanchez. The patient was admitted after presenting to the emergency department on with complaints of severe abdominal pain. He was placed on interval of bowel rest, and is received pain medication and IV fluid resuscitation and today he notes significant symptomatic improvement. He graded his admission pain as 8/10 intensity, and today he states his discomfort is a 1/10 intensity at the lower aspect of his abdomen. He is in good spirits, and tolerated a liquid diet today. The patient is followed as an outpatient for severe hypertriglyceridemia despite multiple medications. He is previously been admitted to the hospital in 2013, and on 2 separate occasions in 2014 as well as the current hospital stay. He has routine plasmapheresis about every other week [place] [facility] [place] adjunctive treatment for his hypertriglyceridemia. His most recent treatment was on 05/05/17, and he is scheduled to have an additional treatment on 05/19/17. Time his most recent outpatient follow-up visit with Dr. Sanchez on 04/26/17, the patient was feeling well. Review of recent outpatient [facility] labs includes triglycerides level of 2471 on 04/07/17, 3766 on 04/21/17, and 1671 on 05/05/17 the day of his most recent plasmapheresis therapy. History of this or level presentation in the emergency room dated 05/12/17 was 2716 mg/dL. The serum lipase of 9917 units per liter on admission has trended down to 3641 units per liter. Patient's magnesium was 1??5 on admission and was normalized to 2??3 mg/dL yesterday 05/13/17. Past Medical/Surgical History Problem List: Medical Problems: (1) Choledochal cyst (2) Pancreatitis (3) Pancreatitis (4) suspect underlying familial hypertriglyceridemia Surgical Problems: (1) Hx of cholecystectomy Review Of Systems See above for pertinent positives & negatives. A total of 10 systems reviewed and were otherwise negative. Allergies Coded Allergies: No Known Allergies (Unverified , 05/12/17) Medications Reported Home Medications Medications Dose Route/Sig Max Daily Dose Days Date Category Dose Instructions Tylenol (Acetaminophen) 325 Mg Tab 650 Mg PO Q6 PRN 05/12/17 Reported Aspirin 325 Mg Ectab 325 Mg PO HS 05/12/17 Reported Glucophage (Metformin Hcl) 1,000 Mg Tab 1,000 Mg PO BID 05/12/17 Reported Niacin Er (Niacin (Antihyperlipidemic)) 1,000 Mg Tab 1,000 Mg PO QPM 05/15/15 Reported TAKE WITH NIACIN ER 500MG TO EQUAL 1,500MG DOSE Niacin ER (Niacin) 500 Mg Tabcr 500 Mg PO QPM 05/15/15 Reported TAKE WITH NIACIN ER 1,000MG TO EQUAL 1,500MG DOSE Atorvastatin Calcium (Atorvastatin) 40 Mg Tab 40 Mg PO QPM 05/15/15 Reported Retaine Om3 (Elysian 3 Fatty Acids-Evening Pr) 1 Cap Cap 2 Cap PO BID 05/15/15 Reported Prilosec (Omeprazole) 20 Mg Capcr 20 Mg PO DAILY 06/03/14 Reported Lopid (Gemfibrozil) 600 Mg Tab 600 Mg PO BID 06/03/14 Reported Physical Exam Vital Signs (Last 8hrs): Last 8 Hrs Date Time Temp Pulse Resp B/P (MAP) Pulse Ox O2 Delivery O2 Flow Rate FiO2 05/14/17 07:48 37.2 94 18 120/79 (93) 97 Room Air 05/14/17 07:23 Room Air General Appearance: Alert and Oriented x3. NAD. Head: Normocephalic Atraumatic. Eyes: PERRLA, EOMI, conjunctiva and sclera clear Neck: Supple. No carotid bruits noted. No JVD. No HJD. Respiratory: Breath sounds clear to auscultation bilaterally. No w/r/r. Cardiovascular: Reg rate and rhythm. S1 and S2 noted. No murmurs, rubs, gallops. PMI non displace. Abdomen: Normal bowel sounds, soft nontender. no abdominal bruits. Extremities: No edema, no clubbing or cyanosis. distal pulses 2/4 bilaterally. Neuro: No focal deficits. Psychiatric: Normal affect. Data Last 24 Hours Test 05/13/17 11:27 05/13/17 18:06 05/13/17 19:46 05/14/17 07:44 Bedside Glucose 150 mg/dl 195 mg/dl 184 mg/dl 140 mg/dl Test 05/14/17 09:15 White Blood Count 10.86 K/uL Red Blood Count 4.43 M/uL Hemoglobin 12.3 g/dL Hematocrit 36.5 % Mean Corpuscular Volume 82.4 fL Mean Corpuscular Hemoglobin 27.8 pg Mean Corpuscular Hemoglobin Concent 33.7 g/dl RDW Standard Deviation 43.0 fL RDW Coefficient of Variation 14.3 % Platelet Count 217 K/uL Mean Platelet Volume 9.4 fL Sodium Level 137 mmol/L Potassium Level 3.4 mmol/L Chloride Level 104 mmol/L Carbon Dioxide Level 25 mmol/L Anion Gap 8.0 mmol/L Blood Urea Nitrogen 6 mg/dl Creatinine 0.79 mg/dl Est Creatinine Clear Calc Drug Dose 168.4 ml/min Estimated GFR () 133.9 Estimated GFR (Non- 115.5 BUN/Creatinine Ratio 7.2 Random Glucose 191 mg/dl Calcium Level 9.1 mg/dl Total Bilirubin 0.6 mg/dl Aspartate Amino Transf (AST/SGOT) 9 U/L Alanine Aminotransferase (ALT/SGPT) 24 U/L Alkaline Phosphatase 54 U/L Total Protein 7.0 gm/dl Albumin 3.5 gm/dl Globulin 3.5 gm/dl Albumin/Globulin Ratio 1.0 Summary of radiology report of CT of the pelvis performed : Moderate dhaval-pancreatic infiltration consistent with acute pancreatitis. No dhaval-pancreatic fluid collection. No evidence of gland necrosis by CT. proximal right ureteral calculus with hydronephrosis. Fatty liver Assessment & Plan Impression: 36-year-old male Recurrent pancreatitis Familial hypertriglyceridemia Discussion/Plan: The patient had been doing well with no hospitalizations in the last 2 years from a pancreatitis perspective. It sounds as though he had been nonadherent with his diet having had hotdogs and cheese covered broccoli precipitating his admission. He was counseled on the importance of maintaining his diet. Resume home doses of niacin, atorvastatin, and gemfibrozil. Agree with GI plan to reduce his IV fluids from 200 MLS per hour to 75 mL per hour. Advance diet as tolerated. Keep plans for her plasmapheresis on 05/19/17 at [facility] [place] as planned. Since he is improving clinically, I do not think he needs to be transferred to have this performed on a more urgent basis. Dr Herring is rounding this weekend. Please call with questions and concerns. Kenya Salmeron, DO
[2017-05-14] MEDS ORDERED: GEMFIBROZIL 600 MG TAB PO ONE (11:45)
[2017-05-14 15:31] VITALS: BP 123/75; PULSE 94; TEMP 37.1; O2SAT 97
--- NOTE | 2017-05-14 16:40 | Progress Note ---
Internal Med Progress Note Date of Service: May 14, 2017. Provider Documentation: SUBJECTIVE: resting comfortably abdominal pain and nausea almost resolved on clears afebrile no sob OBJECTIVE: Vital Signs-as noted below Exam: General-alert and oriented. Not in distress ENT-normal hearing Neck-no neck masses Lungs-cta b/l no wheezing no crackles present Heart-s1 and s2 heard regular rhythm, no murmurs Abdomen-soft bowel sounds present non tender no distension Extremities no edema present no erythema Neuro-alert and oriented moves extremities Lab data as noted below. ASSESSMENT & PLAN: 1. Recurrent pancreatitis history of hypertriglyceridemia, periodic outpatient plasmapheresis at [facility] [place] history of choledochal cyst status post surgery improving continue iv fluids, iv pain meds and antiemetics tolerating clears advancing to full liquid diet and cutting back on fluids GI on board improving Hypertriglyceridemia familial on plasmapheresis every two weeks consulted Cardiology for any further recommendations for his recurrent pancreatitis appreciate cardiology inputs 2. DM2 reasonable control as of recent outxp HgA1c Holding metformin.ISS. Will monitor. 3. past tobacco abuse DVT PROPHYLAXIS Lovenox DISPOSITION possible d/c in am [facility] in [address] Vital Signs: Date Time Temp Pulse Resp B/P (MAP) Pulse Ox O2 Delivery O2 Flow Rate FiO2 05/14/17 15:31 37.1 94 18 123/75 (91) 97 05/14/17 07:48 37.2 94 18 120/79 (93) 97 Room Air 05/14/17 07:23 Room Air 05/14/17 00:00 Room Air 05/13/17 23:33 37.3 93 20 145/76 (99) 94 Room Air 05/13/17 16:43 95 Room Air Lab Results: Results Past 24 Hours Test 05/13/17 18:06 05/13/17 19:46 05/14/17 07:44 05/14/17 09:15 Range/Units Bedside Glucose 195 184 140 70-99 mg/dl White Blood Count 10.86 4.8-10.8 K/uL Red Blood Count 4.43 4.7-6.1 M/uL Hemoglobin 12.3 14.0-18.0 g/dL Hematocrit 36.5 42-52 % Mean Corpuscular Volume 82.4 80-100 fL Mean Corpuscular Hemoglobin 27.8 25-34 pg Mean Corpuscular Hemoglobin Concent 33.7 32-36 g/dl RDW Standard Deviation 43.0 36.4-46.3 fL RDW Coefficient of Variation 14.3 11.5-14.5 % Platelet Count 217 130-400 K/uL Mean Platelet Volume 9.4 7.4-10.4 fL Sodium Level 137 136-145 mmol/L Potassium Level 3.4 3.5-5.1 mmol/L Chloride Level 104 98-107 mmol/L Carbon Dioxide Level 25 21-32 mmol/L Anion Gap 8.0 3-11 mmol/L Blood Urea Nitrogen 6 7-18 mg/dl Creatinine 0.79 0.60-1.40 mg/dl Est Creatinine Clear Calc Drug Dose 168.4 ml/min Estimated GFR () 133.9 Estimated GFR (Non- 115.5 BUN/Creatinine Ratio 7.2 10-20 Random Glucose 191 70-99 mg/dl Calcium Level 9.1 8.5-10.1 mg/dl Total Bilirubin 0.6 0.2-1 mg/dl Aspartate Amino Transf (AST/SGOT) 9 15-37 U/L Alanine Aminotransferase (ALT/SGPT) 24 12-78 U/L Alkaline Phosphatase 54 45-117 U/L Total Protein 7.0 6.4-8.2 gm/dl Albumin 3.5 3.4-5.0 gm/dl Globulin 3.5 2.5-4.0 gm/dl Albumin/Globulin Ratio 1.0 0.9-2 Lipase 1101 73-393 U/L Test 05/14/17 11:44 Range/Units Bedside Glucose 105 70-99 mg/dl
[2017-05-14] MEDS: GEMFIBROZIL 600 MG TAB PO SCH (20:30)
[2017-05-14] MEDS: ASPIRIN 325 MG ECTAB PO SCH (20:31)
[2017-05-14] MEDS ORDERED: NIASPAN 500 MG TABCR PO SCH (21:00)
[2017-05-14] MEDS ORDERED: ATORVASTATIN 40 MG TAB PO SCH (21:00)
[2017-05-15 00:59] VITALS: BP 115/75; PULSE 72; TEMP 36.7; O2SAT 95
[2017-05-15] MEDS: LACTATED RINGER'S 1000ML 1,000 ML IV SCH (05:17)
[2017-05-15 07:47] VITALS: BP 106/69; PULSE 72; TEMP 36.7; O2SAT 94
[2017-05-15] MEDS: PANTOprazole SOD 40 MG TAB PO SCH (08:43)
[2017-05-15] MEDS: GEMFIBROZIL 600 MG TAB PO SCH (08:44)
[2017-05-15] MEDS: ENOXAPARIN 40 MG/0.4 ML SYR SQ SCH (08:45)
[2017-05-15] MEDS: INSULIN GLARGINE SOLOSTAR 100 UNITS/ML 3 ML PEN SC SCH (08:49)
[2017-05-15] MEDS: INSULIN ASPART 100 UNITS/ML 3 ML PEN SC SCH (08:50)
[2017-05-15 08:55] LABS: BUN/CREATININE RATIO 11.4 (10-20); CALCIUM 9.2 mg/dl (8.5-10.1); CREATININE 0.77 mg/dl (0.60-1.40); MAGNESIUM 2.1 mg/dl (1.8-2.4); POTASSIUM 3.8 mmol/L (3.5-5.1)
[2017-05-15] MEDS ORDERED: NIASPAN 500 MG TABCR PO SCH (09:00)
--- NOTE | 2017-05-15 10:12 | Gastroenterology Progress Note ---
Progress Note Date of Service: May 15, 2017 Subjective Pt evaluation today including: conversation w/ patient, physical exam The patient reports being pain-free this morning. He is tolerating a low-fat diet without any difficulty. Review of Systems Constitutional: No fever, No sweats, No fatigue Respiratory: No cough, No wheezing, No dyspnea at rest Cardiac: No chest pain, No PND, No palpitations Medications Current Inpatient Medications Medications (Trade) Dose Ordered Sig/Rogelio Route Start Time Stop Time Status Last Admin Dose Admin Ioversol (Optiray 320) 100 ml UD PRN IV 05/12/17 22:15 05/16/17 22:14 Lactated Ringer's 1,000 ml @ 75 mls/hr [id number] IV 05/13/17 01:30 06/12/17 01:29 05/15/17 05:17 75 MLS/HR Insulin Glargine (Lantus Solostar Pen) 5 units DAILY SC 05/14/17 09:00 06/13/17 08:59 05/15/17 08:49 5 UNITS Glucose (Glucose 40% Gel) 15-30 GRAMS 15 GRAMS... UD PRN PO 05/13/17 02:00 06/12/17 01:59 Glucose (Glucose Chew Tab) 4-8 Tablets 4 Tabl... UD PRN PO 05/13/17 02:00 06/12/17 01:59 Dextrose (Dextrose 50% 50ML Syringe) 25-50ML OF 50% DW IV FOR... UD PRN IV 05/13/17 02:00 06/12/17 01:59 Glucagon (Glucagon Inj) 1 mg UD PRN SQ 05/13/17 02:00 06/12/17 01:59 Enoxaparin Sodium (Lovenox Inj) 40 mg Q24H SQ 05/13/17 09:00 06/12/17 08:59 05/14/17 07:52 40 MG Acetaminophen (Tylenol Tab) 650 mg Q4H PRN PO 05/13/17 02:00 06/12/17 01:59 05/13/17 09:18 650 MG Aspirin (Ecotrin Tab) 325 mg HS PO 05/13/17 21:00 06/12/17 20:59 05/14/17 20:31 325 MG Pantoprazole Sodium (Protonix Tab) 40 mg QAM PO 05/13/17 09:00 06/12/17 08:59 05/15/17 08:43 40 MG Ketorolac Tromethamine (Toradol Inj) 30 mg Q6H PRN IV 05/13/17 02:00 05/18/17 01:59 Hydromorphone HCl (Dilaudid Inj) 0.5 mg Q3H PRN IV 05/13/17 02:00 05/27/17 01:59 05/14/17 00:56 0.5 MG Lorazepam (Ativan Inj) 0.5 mg Q4H PRN IV 05/13/17 02:00 06/12/17 01:59 Ondansetron HCl (Zofran Inj) 4 mg Q6H PRN IV 05/13/17 02:00 06/12/17 01:59 Tramadol HCl (Ultram Tab) not relieved ... Q6H PRN PO 05/13/17 02:00 06/12/17 01:59 Lorazepam 0.5 mg/ Syringe 1 ml @ 1 mls/min Q4H PRN IV 05/13/17 03:45 06/12/17 03:44 05/13/17 21:18 1 MLS/MIN Insulin Aspart (novoLOG ASPART) SLIDING SCALE If C... ACHS SC 05/14/17 06:30 06/13/17 06:29 05/15/17 08:50 2 UNITS Atorvastatin Calcium (Lipitor Tab) 40 mg QPM PO 05/14/17 21:00 06/13/17 20:59 05/14/17 20:30 40 MG Gemfibrozil (Lopid Tab) 600 mg BID PO 05/14/17 21:00 06/13/17 20:59 05/15/17 08:44 600 MG Niacin (Niaspan Extended Rel Tab) 1,000 mg QPM PO 05/14/17 21:00 06/13/17 20:59 05/14/17 20:31 1,000 MG Niacin (Niaspan Extended Rel Tab) 500 mg QAM PO 05/15/17 09:00 06/14/17 08:59 05/15/17 08:43 500 MG Objective Vital Signs Date Time Temp Pulse Resp B/P (MAP) Pulse Ox O2 Delivery O2 Flow Rate FiO2 05/15/17 07:47 36.7 72 18 106/69 (81) 94 05/15/17 07:42 Room Air 05/15/17 00:59 36.7 72 20 115/75 (88) 95 Room Air 05/14/17 23:59 Room Air 05/14/17 20:00 Room Air 05/14/17 16:00 Room Air 05/14/17 15:31 37.1 94 18 123/75 (91) 97 Physical Exam General Appearance: no apparent distress Eyes: PERRL Neck: no JVD Cardiovascular: no murmur Abdomen: soft Laboratory Results Last 24 Hours Test 05/14/17 11:44 05/14/17 16:57 05/14/17 20:09 05/15/17 07:19 Bedside Glucose 105 mg/dl 102 mg/dl 145 mg/dl 106 mg/dl Test 05/15/17 08:13 Sodium Level 137 mmol/L Potassium Level 3.8 mmol/L Chloride Level 105 mmol/L Carbon Dioxide Level 26 mmol/L Anion Gap 6.0 mmol/L Blood Urea Nitrogen 9 mg/dl Creatinine 0.77 mg/dl Est Creatinine Clear Calc Drug Dose 172.8 ml/min Estimated GFR () 135.3 Estimated GFR (Non- 116.7 BUN/Creatinine Ratio 11.4 Random Glucose 167 mg/dl Calcium Level 9.2 mg/dl Magnesium Level 2.1 mg/dl Assessment and Plan Patient is a 36 year old male w hx of recurrent pancreatitis secondary to hypertriglyceridemia, s/p choledochal cyst resection, cholecystectomy; presented to ED w s/s of RUQ & epigastric pain, n/v after eating a fatty meal. Imaging studies, labs consistent w acute pancreatitis w/o fluid collection or necrosis. Recommendations Patient can be discharged from my perspective Please call with any questions or concerns GI to sign off
--- NOTE | 2017-05-15 11:15 | Discharge Instructions ---
Discharge Instructions Date of Service May 15, 2017. Admission Reason for Admission: Pancreatitis Discharge Discharge Diagnosis / Problem: acute panceatitis Discharge Goals Goal(s): Decrease discomfort, Improve function Activity Recommendations Activity Limitations: resume your previous activity . Instructions / Follow-Up Instructions / Follow-Up FOLLOWUP WITH FAMILY DOCTOR ON Apr AT 2:45PM FOLLOWUP WITH CARDIOLOGY SCHEDULED Current Hospital Diet Patient's current hospital diet: Low Fat Diet, Low Fiber Diet Discharge Diet Recommended Diet: AHA Diet (Heart Healthy), Low Fat Diet Pending Studies Studies pending at discharge: no Laboratory Results Lipid Panel Test 05/12/17 22:20 Range/Units Triglycerides Level 2716 H 0-150 mg/dl Medical Emergencies . Who to Call and When: Medical Emergencies: If at any time you feel your situation is an emergency, please call 911 immediately. . Non-Emergent Contact Non-Emergency issues call your: Primary Care Provider . . "Provider Documentation" section prepared by Ranjith Rodriguez. . VTE Core Measure Inpt VTE Proph given/why not?: Enoxaparin (Lovenox)SQ
[2017-05-15 12:02] VITALS: BP 106/69; PULSE 72; TEMP 36.7; O2SAT 94
--- NOTE | 2017-05-15 17:27 | Progress Note ---
Internal Med Progress Note Date of Service: May 15, 2017. Provider Documentation: SUBJECTIVE: resting comfortably abdominal pain resolved tolerating soft diet ok for discharge OBJECTIVE: Vital Signs-as noted below Exam: General-alert and oriented. Not in distress ENT-normal hearing Neck-no neck masses Lungs-cta b/l no wheezing no crackles present Heart-s1 and s2 heard regular rhythm, no murmurs Abdomen-soft bowel sounds present non tender no distension Extremities no edema present no erythema Neuro-alert and oriented moves extremities Lab data as noted below. ASSESSMENT & PLAN: 1. 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 DM2 reasonable control as of recent outxp HgA1c Holding metformin.ISS. d/c on home meds 3. past tobacco abuse discharged home Vital Signs: Date Time Temp Pulse Resp B/P (MAP) Pulse Ox O2 Delivery O2 Flow Rate FiO2 05/15/17 12:02 36.7 72 18 94 Room Air 05/15/17 07:47 36.7 72 18 106/69 (81) 94 05/15/17 07:42 Room Air 05/15/17 00:59 36.7 72 20 115/75 (88) 95 Room Air 05/14/17 23:59 Room Air 05/14/17 20:00 Room Air Lab Results: Results Past 24 Hours Test 05/14/17 20:09 05/15/17 07:19 05/15/17 08:13 05/15/17 11:21 Range/Units Bedside Glucose 145 106 158 70-99 mg/dl Sodium Level 137 136-145 mmol/L Potassium Level 3.8 3.5-5.1 mmol/L Chloride Level 105 98-107 mmol/L Carbon Dioxide Level 26 21-32 mmol/L Anion Gap 6.0 3-11 mmol/L Blood Urea Nitrogen 9 7-18 mg/dl Creatinine 0.77 0.60-1.40 mg/dl Est Creatinine Clear Calc Drug Dose 172.8 ml/min Estimated GFR () 135.3 Estimated GFR (Non- 116.7 BUN/Creatinine Ratio 11.4 10-20 Random Glucose 167 70-99 mg/dl Calcium Level 9.2 8.5-10.1 mg/dl Magnesium Level 2.1 1.8-2.4 mg/dl
--- NOTE | 2017-05-15 17:29 | Discharge Summary ---
Discharge Summary Date of Service May 15, 2017. Discharge Summary Admission Date: May 13, 2017 at 01:56 Discharge Date: May 15, 2017 Discharge Disposition: Home Principal Diagnosis: ACUTE PANCREATITIS Secondary Diagnoses/Problems: recurrent pancreatitis, hypertriglyceridemia lipidemia (periodic plasmapheresis), past tobacco abuse, choledochal cyst status post surgery, DM2 on oral meds. Procedures: CT ABD/PELVIS: 1. Moderate peripancreatic infiltration consistent with acute pancreatitis. No peripancreatic fluid collection. No evidence of gland necrosis by CT. 2. 1.2 x 0.8 cm proximal right ureteral calculus without hydronephrosis. 3. Fatty liver. Trace pneumobilia. No biliary or pancreatic ductal dilatation. Consultations: CARDIOLOGY GI Medication Reconciliation Continued Medications: Acetaminophen (Tylenol) 325 Mg Tab 650 MG PO Q6 PRN for Pain, TAB Aspirin (Aspirin) 325 Mg Ectab 325 MG PO HS Atorvastatin (Atorvastatin Calcium) 40 Mg Tab 40 MG PO QPM Gemfibrozil (Lopid) 600 Mg Tab 600 MG PO BID, TAB Metformin Hcl (Glucophage) 1,000 Mg Tab 1000 MG PO BID, #180 Niacin (Niacin ER) 500 Mg Tabcr 500 MG PO QPM TAKE WITH NIACIN ER 1,000MG TO EQUAL 1,500MG DOSE Niacin (Antihyperlipidemic) (Niacin Er) 1,000 Mg Tab 1000 MG PO QPM TAKE WITH NIACIN ER 500MG TO EQUAL 1,500MG DOSE Perry 3 Fatty Acids-Evening Pr (Retaine Om3) 1 Cap Cap 2 CAP PO BID Omeprazole (Prilosec) 20 Mg Capcr 20 MG PO DAILY, CAP Admission Information HPI (per Admitting provider): History obtained from patient and records. Medical history significant for recurrent pancreatitis, hypertriglyceridemia lipidemia (periodic plasmapheresis), past tobacco abuse, choledochal cyst status post surgery, DM2 on oral meds. Recent confinement July 2015 for recurrent pancreatitis. Resolved with conservative management. Px undergoes plasmapheresis for hypertriglyceridemia at [facility] every other week. Last night, patient had achy epigastric pain going down his belly with nausea and vomiting reminiscent of pancreatitis pain. No fever, no chills. Viral illness last week as per patient. He had 2 hotdogs and cheesy broccoli at home. Physical Exam (per Admitting): VITAL SIGNS: Blood pressure initially 164/105 and later 135/76, pulse rate 81, RR 16, temperature 36.7, sats 98 on room air. GENERAL: Noted to be obese, slightly uncomfortable. No respiratory distress. SKIN: Normal color. HEENT: [place] palpebral conjunctivae. Dry mucosa. NECK: No JVD. Supple. CHEST: Clear to auscultation. HEART: Regular rate and rhythm. ABDOMEN: Some distention. Healed incisional scar. No overt tenderness. EXTREMITIES: No edema. Nontender. NEUROLOGIC: No gross focality. Hospital Course 1. 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 DM2 reasonable control as of recent outxp HgA1c Holding metformin.ISS. d/c on home meds 3. past tobacco abuse discharged home Total time spent on discharge = 35MINUTES This includes examination of the patient, discharge planning, medication reconciliation, and communication with other providers. Discharge Instructions Discharge Instructions Date of Service May 15, 2017. Admission Reason for Admission: Pancreatitis Discharge Discharge Diagnosis / Problem: acute panceatitis Discharge Goals Goal(s): Decrease discomfort, Improve function Activity Recommendations Activity Limitations: resume your previous activity . Instructions / Follow-Up Instructions / Follow-Up FOLLOWUP WITH FAMILY DOCTOR ON Apr AT 2:45PM FOLLOWUP WITH CARDIOLOGY SCHEDULED Current Hospital Diet Patient's current hospital diet: Low Fat Diet, Low Fiber Diet Discharge Diet Recommended Diet: AHA Diet (Heart Healthy), Low Fat Diet Pending Studies Studies pending at discharge: no Laboratory Results Lipid Panel Test 05/12/17 22:20 Range/Units Triglycerides Level 2716 H 0-150 mg/dl Medical Emergencies . Who to Call and When: Medical Emergencies: If at any time you feel your situation is an emergency, please call 911 immediately. . Non-Emergent Contact Non-Emergency issues call your: Primary Care Provider . . "Provider Documentation" section prepared by Ranjith Rodriguez. . VTE Core Measure Inpt VTE Proph given/why not?: Enoxaparin (Lovenox)SQ
== END 2017-05-15 12:34 | disposition home or self-care (01) | DRG 440 ==
LOC: C.EDB 21:37 → C.MS2W 05-13 01:56 → ENRESERV 05-13 02:10
PROVIDERS: ADMIT Internal Medicine; ATTEND Internal Medicine
DX: K86.1 Other chronic pancreatitis (principal); E78.1 Pure hyperglyceridemia; E11.9 Type 2 diabetes mellitus without complications; E66.9 Obesity, unspecified; Z68.34 Body mass index [BMI] 34.0-34.9, adult; Z79.82 Long term (current) use of aspirin; Z87.891 Personal history of nicotine dependence; Z79.84 Long term (current) use of oral hypoglycemic drugs; Z79.899 Other long term (current) drug therapy; Z86.2 Personal history of diseases of the blood and blood-forming organs and certain disorders involving the immune mechanism; Z87.19 Personal history of other diseases of the digestive system; Z90.49 Acquired absence of other specified parts of digestive tract

== ENCOUNTER 2018-03-23 05:27 | Inpatient (IN) | payer BC ==
[~2018-03-23] VITALS: Ht 182.9 cm; Wt 108.2 kg
[2018-03-23] VITALS (8 sets, daily range): BP systolic 127–147; BP diastolic 74–87; PULSE 100–126; TEMP 36.7–37.9; O2SAT 91–98; Ht 182.9 cm; Wt 108.2 kg
[~2018-03-23 05:27] MED LIST changes: +ACET-1311 PO; -AMOX875T PO; +ASPEC325 PO; +METF-384 PO; -METF500T5 PO; -NAPR1TAB9 PO; -NEOMOIN2 TOP; -[UNRECOGNIZED DRUG - CODE] PO
[2018-03-23] MEDS ORDERED: MoRPHine SULFATE 4 MG/ML 1 ML CARP\\VIAL IV STA ×2 (05:41→07:17)
[2018-03-23] MEDS ORDERED: SODIUM CHLORIDE 0.9% 1000ML 1,000 ML IV STA (05:41)
[2018-03-23] MEDS ORDERED: ONDANSETRON INJ 2 MG/ML 2 ML VIAL IV STA (05:41)
[2018-03-23] MEDS ORDERED: OPTIRAY 320 IV PRN (06:00)
[2018-03-23] MEDS ORDERED: EMPA1TAB PO (06:13)
--- NOTE | 2018-03-23 06:18 | EMERGENCY ROOM VISIT NOTE ---
History Report prepared by Adán: Shiraz Breen Under the Supervision of: Dr. Audelia Dangelo M.D. (Shiraz Breen) First contact with patient: 05:31 Chief Complaint: ABDOMINAL PAIN Stated Complaint: ABDOMINAL PAIN History of Present Illness The patient is a 37 year old male who presents to the Emergency Room with complaints of intermittent abdominal pain beginning yesterday. The patient reports that the pain started yesterday in his stomach and went away. He then states he woke up at 2 or 3 AM this morning with pain in his upper left abdomen. He rates the current severity of his pain as 4/10. The patient notes that he had a fever of 100.8 last night. He denies cough, radiation of the pain to the groin, diarrhea, or blood in the urine or stool. He reports that he currently still has some pain around his belly button as well. He notes that he had between 6 to 8 bowel movements yesterday, although he states that this is normal for him. Source of History: patient Onset: yesterday Position: abdomen Symptom Intensity: 4/10 Timing: intermittent Associated Symptoms: No cough, No melena, No hematochezia, No diarrhea, No urinary symptoms Review of Systems See HPI for pertinent positives & negatives. A total of 10 systems reviewed and were otherwise negative. Past Medical & Surgical Medical Problems: (1) Choledochal cyst (2) Pancreatitis (3) Pancreatitis Surgical Problems: (1) Hx of cholecystectomy Family History Cancer Diabetes mellitus Hypertension Social History Smoking Status: Current Every Day Smoker Alcohol Use: none Drug Use: none Housing Status: lives with family Occupation Status: employed Current/Historical Medications Scheduled Aspirin (Aspirin), 325 MG PO HS Atorvastatin (Lipitor), 40 MG PO QPM Empagliflozin (Jardiance), 10 MG PO DAILY Gemfibrozil (Lopid), 600 MG PO BID Metformin Hcl (Glucophage), 1,000 MG PO BID Niacin (Niacin ER), 500 MG PO QPM Niacin (Antihyperlipidemic) (Niacin Er), 1,000 MG PO QPM Mcfarland 3 Fatty Acids-Evening Pr (Retaine Om3), 2 CAP PO BID Omeprazole (Prilosec), 20 MG PO DAILY Scheduled PRN Acetaminophen (Tylenol), 650 MG PO Q6 PRN for Pain Allergies Coded Allergies: No Known Allergies (Unverified , 05/12/17) Physical Exam Vital Signs Date Time Temp Pulse Resp B/P (MAP) Pulse Ox O2 Delivery O2 Flow Rate FiO2 03/23/18 07:11 87 18 176/98 95 Room Air 03/23/18 06:19 143/81 03/23/18 05:57 74 16 98 Room Air 03/23/18 05:49 73 03/23/18 05:35 146/97 03/23/18 05:27 36.9 71 20 146/97 98 Room Air Physical Exam Vital signs reviewed. General: Well-appearing male, in no significant distress. HEENT: No scleral icterus, PERRLA, neck supple. Atraumatic. Cardiovascular: Regular rate and rhythm, no extra sounds. Pulmonary: Clear to auscultation bilaterally, normal work of breathing. Abdomen: Soft, nondistended, mild diffuse abdominal tenderness particularly at the epigastrium, no rebound or guarding, positive bowel sounds. Musculoskeletal: Atraumatic, no peripheral edema. No CVA tenderness Neurologic: Patient awake alert and oriented x 3 Skin: Warm, dry, no rash Medical Decision & Procedures ER Provider Diagnostic Interpretation: Radiology results as stated below per my review and radiologist interpretation: ABD/PELVIS IV CONTRAST ONLY CT DOSE: 761.04 mGy.cm HISTORY: Pancreatitis LUQ abd pain TECHNIQUE: Multiaxial CT images of the abdomen and pelvis were performed following the use of intravenous contrast. A dose lowering technique was utilized adhering to the principles of ALARA. COMPARISON STUDY: 05/13/2017 FINDINGS: Mild dependent basilar atelectasis. Diffuse fatty infiltration of liver. Moderate hepatomegaly stable from the prior exam. Prior cholecystectomy. The adrenal glands normal. Kidneys are considered negative for hydronephrosis. The pancreas is edematous. There is considerable peripancreatic infiltrative change. This primarily is in the pancreatic tail and to a lesser extent mid body region. Potential developing pseudocyst measuring 1.9 cm proximal aspect of the duodenal sweep. This may also represent a duodenal diverticulum. No evidence this time for drainable abscess or collection. Several upper abdominal varices which are patent. No evidence for vascular thrombosis within limitations of this exam. Bowel pattern suggests a proximal reactive small bowel ileus. Several mildly distended loops small bowel within the upper mid abdominal region. Bladder is midline. Trace free fluid within the pelvic cul-de-sac. IMPRESSION: 1. Findings consistent with widespread acute pancreatitis. 2. Considerable peripancreatic infiltrative change in the region of the pancreatic tail and body. 3. 2 cm developing pancreatic pseudocyst pancreatic head versus diverticulum of the descending duodenal sweep. 4. No evidence for drainable abscess or collection. 5. Nonobstructive small bowel ileus. 6. Fatty infiltration of liver with stable hepatomegaly. The above report was generated using voice recognition software. It may contain grammatical, syntax or spelling errors. Electronically signed by: Tuan Todd M.D. 03/23/2018 7:21 AM Laboratory Results 03/23/18 04:54 Red Blood Count 5.46, Mean Corpuscular Volume 75.8, Mean Corpuscular Hemoglobin 25.1, Mean Corpuscular Hemoglobin Concent 33.1, Mean Platelet Volume 10.7, Neutrophils (%) (Auto) 83.7, Lymphocytes (%) (Auto) 9.9, Monocytes (%) (Auto) 5.0, Eosinophils (%) (Auto) 0.6, Basophils (%) (Auto) 0.2, Neutrophils # (Auto) 10.94, Lymphocytes # (Auto) 1.29, Monocytes # (Auto) 0.66, Eosinophils # (Auto) 0.08, Basophils # (Auto) 0.02 03/23/18 06:50 Test 03/23/18 04:54 03/23/18 05:30 03/23/18 06:50 White Blood Count 13.07 K/uL (4.8-10.8) Red Blood Count 5.46 M/uL (4.7-6.1) Hemoglobin 13.7 g/dL (14.0-18.0) Hematocrit 41.4 % (42-52) Mean Corpuscular Volume 75.8 fL (80-100) Mean Corpuscular Hemoglobin 25.1 pg (25-34) Mean Corpuscular Hemoglobin Concent 33.1 g/dl (32-36) Platelet Count 336 K/uL (130-400) Mean Platelet Volume 10.7 fL (7.4-10.4) Neutrophils (%) (Auto) 83.7 % Lymphocytes (%) (Auto) 9.9 % Monocytes (%) (Auto) 5.0 % Eosinophils (%) (Auto) 0.6 % Basophils (%) (Auto) 0.2 % Neutrophils # (Auto) 10.94 K/uL (1.4-6.5) Lymphocytes # (Auto) 1.29 K/uL (1.2-3.4) Monocytes # (Auto) 0.66 K/uL (0.11-0.59) Eosinophils # (Auto) 0.08 K/uL (0-0.5) Basophils # (Auto) 0.02 K/uL (0-0.2) RDW Standard Deviation 42.6 fL (36.4-46.3) RDW Coefficient of Variation 16.7 % (11.5-14.5) Immature Granulocyte % (Auto) 0.6 % Immature Granulocyte # (Auto) 0.08 K/uL (0.00-0.02) Nucleated RBC Absolute Count (auto) 0.23 K/uL (0-0) Nucleated Red Blood Cells % 1.7 % Red Blood Cell Morphology Unremarkable Urine Color YELLOW Urine Appearance CLEAR (CLEAR) Urine pH 5.5 (4.5-7.5) Urine Specific Arthur 1.036 (1.000-1.030) Urine Protein 3+ (NEG) Urine Glucose (UA) 3+ (NEG) Urine Ketones 2+ (NEG) Urine Occult Blood TRACE (NEG) Urine Nitrite NEG (NEG) Urine Bilirubin NEG (NEG) Urine Urobilinogen NEG (NEG) Urine Leukocyte Esterase NEG (NEG) Urine WBC (Auto) 1-5 /hpf (0-5) Urine RBC (Auto) 0-4 /hpf (0-4) Urine Hyaline Casts (Auto) 1-5 /lpf (0-5) Urine Epithelial Cells (Auto) 10-20 /lpf (0-5) Urine Bacteria (Auto) NEG (NEG) Anion Gap 8.0 mmol/L (3-11) Est Creatinine Clear Calc Drug Dose 138.0 ml/min Estimated GFR () 121.1 Estimated GFR (Non- 104.5 BUN/Creatinine Ratio 11.2 (10-20) Calcium Level 9.2 mg/dl (8.5-10.1) Magnesium Level 1.6 mg/dl (1.8-2.4) Total Bilirubin 0.9 mg/dl (0.2-1) Direct Bilirubin < 0.1 mg/dl (0-0.2) Aspartate Amino Transf (AST/SGOT) 24 U/L (15-37) Alanine Aminotransferase (ALT/SGPT) 30 U/L (12-78) Alkaline Phosphatase 65 U/L (45-117) Total Protein 7.6 gm/dl (6.4-8.2) Albumin 3.7 gm/dl (3.4-5.0) Amylase Level 640 U/L (25-115) Lipase 5783 U/L (73-393) Laboratory results per my review. Medications Administered Medications (Trade) Dose Ordered Sig/Rogelio Route Start Time Stop Time Status Last Admin Dose Admin Sodium Chloride 1,000 ml @ 200 mls/hr Q5H STAT IV 03/23/18 05:41 03/23/18 10:40 03/23/18 05:52 200 MLS/HR Morphine Sulfate (MoRPHine SULFATE INJ) 4 mg NOW STAT IV 03/23/18 05:41 03/23/18 05:43 DC 03/23/18 05:52 4 MG Ondansetron HCl (Zofran Inj) 4 mg NOW STAT IV 03/23/18 05:41 03/23/18 05:43 DC 03/23/18 05:52 4 MG Morphine Sulfate (MoRPHine SULFATE INJ) 4 mg NOW STAT IV 03/23/18 07:17 03/23/18 07:18 DC 03/23/18 07:22 4 MG ED Course 0536: Past medical records reviewed. The patient was evaluated in room B6. A complete history and physical examination was performed. 0740: I updated with the patient. Medical Decision Differential diagnosis: Etiologies such as appendicitis, diverticulitis, PUD, biliary pathology, UTI, pancreatitis, obstruction, mesenteric ischemia, aortic pathology, infections, inflammatory bowel disease, renal colic, as well as others were entertained. This patient was evaluated and appeared to be in no significant distress. Physical examination reveals some epigastric tenderness. Patient has a long history of recurrent pancreatitis due to hypertriglyceridemia. Patient did receive several doses of IV morphine. He was given IV Zofran and hydrated with normal saline solution. WBC is 13. Patient's chemistries required a re- collect of arterial blood due because it is lipemic. Patient is found to have an elevated lipase of 5783. He is afebrile. I did speak with Dr. Willett of gastroenterology as well as Dr. Anita of the hospitalist service. Dr. Willett knows the patient well. He states that he did not meet criteria for acute plasmapheresis on his previous admission. They will evaluate the patient for further management and determine final disposition. Patient is aware of the plan and agrees. Medication Reconcilliation Current Medication List: was personally reviewed by me Blood Pressure Screening Patient's blood pressure: Elevated blood pressure referred to hospitalist Impression Primary Impression: Acute pancreatitis Additional Impression: Hypertriglyceridemia Scribe Attestation The scribe's documentation has been prepared under my direction and personally reviewed by me in its entirety. I confirm that the note above accurately reflects all work, treatment, procedures, and medical decision making performed by me. Departure Information Referrals Kobi Beck D.OFlorinda (PCP) Patient Instructions My [facility] Problem Qualifiers
[2018-03-23 07:11] LABS: HEMATOCRIT 41.4 % (42-52); HEMOGLOBIN 13.7 g/dL (14.0-18.0); MEAN CELL VOLUME 75.8 fL (80-100); MEAN CORPUSCULAR HEMOGLOBIN 25.1 pg (25-34); MEAN CORPUSCULAR HGB CONC 33.1 g/dl (32-36); MEAN PLATELET VOLUME 10.7 fL (7.4-10.4); NUCLEATED RED BLOOD CELL ABS 0.23 K/uL (0-0); PLATELET COUNT 336 K/uL (130-400); RED CELL DISTRIBUTION WIDTH CV 16.7 % (11.5-14.5); RED CELL DISTRIBUTION WIDTH SD 42.6 fL (36.4-46.3); WHITE BLOOD COUNT 13.07 K/uL (4.8-10.8)
[2018-03-23 07:14] LABS: BASO % 0.2 %; BASO ABS # 0.02 K/uL (0-0.2); EOS % 0.6 %; EOS ABS # 0.08 K/uL (0-0.5); IG# 0.08 K/uL (0.00-0.02); LYMPH % 9.9 %; LYMPH ABS # 1.29 K/uL (1.2-3.4); MONO ABS # 0.66 K/uL (0.11-0.59); NEUT % 83.7 %; NEUT ABS # 10.94 K/uL (1.4-6.5)
--- NOTE | 2018-03-23 07:22 | DIAGNOSTIC IMAGING REPORT ---
ABD/PELVIS IV CONTRAST ONLY CT DOSE: 761.04 mGy.cm HISTORY: Pancreatitis LUQ abd pain TECHNIQUE: Multiaxial CT images of the abdomen and pelvis were performed following the use of intravenous contrast. A dose lowering technique was utilized adhering to the principles of ALARA. COMPARISON STUDY: 05/13/2017 FINDINGS: Mild dependent basilar atelectasis. Diffuse fatty infiltration of liver. Moderate hepatomegaly stable from the prior exam. Prior cholecystectomy. The adrenal glands normal. Kidneys are considered negative for hydronephrosis. The pancreas is edematous. There is considerable peripancreatic infiltrative change. This primarily is in the pancreatic tail and to a lesser extent mid body region. Potential developing pseudocyst measuring 1.9 cm proximal aspect of the duodenal sweep. This may also represent a duodenal diverticulum. No evidence this time for drainable abscess or collection. Several upper abdominal varices which are patent. No evidence for vascular thrombosis within limitations of this exam. Bowel pattern suggests a proximal reactive small bowel ileus. Several mildly distended loops small bowel within the upper mid abdominal region. Bladder is midline. Trace free fluid within the pelvic cul-de-sac. IMPRESSION: 1. Findings consistent with widespread acute pancreatitis. 2. Considerable peripancreatic infiltrative change in the region of the pancreatic tail and body. 3. 2 cm developing pancreatic pseudocyst pancreatic head versus diverticulum of the descending duodenal sweep. 4. No evidence for drainable abscess or collection. 5. Nonobstructive small bowel ileus. 6. Fatty infiltration of liver with stable hepatomegaly. The above report was generated using voice recognition software. It may contain grammatical, syntax or spelling errors. Electronically signed by: Tuan Todd M.D. 03/23/2018 7:21 AM Dictated Date/Time: 03/23/2018 7:13 AM
[2018-03-23 07:45] LABS: CALCIUM 9.2 mg/dl (8.5-10.1)
[2018-03-23 07:46] LABS: LIPASE 5783 U/L (73-393)
[2018-03-23 07:47] LABS: CARBON DIOXIDE 25 mmol/L (21-32); GLUCOSE 139 mg/dl (70-99); POTASSIUM 3.5 mmol/L (3.5-5.1); SODIUM 137 mmol/L (136-145); TOTAL PROTEIN 7.6 gm/dl (6.4-8.2)
[2018-03-23 07:48] LABS: BLOOD UREA NITROGEN 10 mg/dl (7-18); CREATININE 0.93 mg/dl (0.60-1.40)
[2018-03-23 08:04] LABS: ALBUMIN 3.7 gm/dl (3.4-5.0); ALKALINE PHOSPHATASE 65 U/L (45-117); ALT/SGPT 30 U/L (12-78)
[2018-03-23 08:07] LABS: AST/SGOT 24 U/L (15-37)
[2018-03-23] MEDS ORDERED: MoRPHine SULFATE 2 MG/ML CARP IV ONE (09:00)
[2018-03-23] MEDS ORDERED: MoRPHine SULFATE 2 MG/ML CARP ONE (09:03)
[2018-03-23] MEDS ORDERED: ONDANSETRON INJ 2 MG/ML 2 ML VIAL IV PRN (09:30)
[2018-03-23] MEDS ORDERED: INSULIN IV INFUSION PROTOCOL STA (09:30)
[2018-03-23] MEDS ORDERED: GLUCOSE 40% GEL 15 GM TUBE PO PRN (09:45)
[2018-03-23] MEDS ORDERED: DEXTROSE 50% 50 ML SYR IV PRN (09:45)
[2018-03-23] MEDS ORDERED: INSULIN REGULAR 250 UNITS in SODIUM CHLORIDE 0.9% 250ML 250 ML IV SCH (09:45)
[2018-03-23] MEDS ORDERED: GLUCAGON FOR INJ 1 MG VIAL IM PRN (09:45)
[2018-03-23] MEDS ORDERED: CARBOHYDRATES FOR HYPOGLYCEMIA PO PRN (09:45)
[2018-03-23] MEDS ORDERED: GLUCOSE 10 TABS/TUBE PO PRN (09:45)
[2018-03-23] MEDS ORDERED: MoRPHine SULFATE 2 MG/ML CARP IV STA (11:44)
[2018-03-23] MEDS ORDERED: MoRPHine SULFATE 2 MG/ML CARP IV PRN (11:45)
[2018-03-23] MEDS: D5W NORMOSOL-R 1,000 ML IV SCH ×2 (11:48→15:51)
[2018-03-23] MEDS ORDERED: POTASSIUM CHLORIDE 20 MEQ TABCR PO STA (11:59)
--- NOTE | 2018-03-23 12:06 | Gastrointestinal Consultation ---
Gastrointestinal Consultation Date of Consultation: Mar 23, 2018 Attending Physician: Lily Howard Consulting Physician: Renan Willett Reason for Consultation: Pancreatitis History of Present Illness Patient is a 37 year old male w PMHx of hypertriglyceridemia, cholelithiasis s/ p cholecystectomy, recurrent pancreatitis, DM II, [place] type V hyperlipoprotenemia who presented to ED w c/o L sided abd pain starting yesterday after lunch. He was having some cheese sticks. He had some n/v, denies any hematemesis, denies any bowel habit changes. He had some fever up to 101, denies any CP, SOB. He was afebrile in the ED. Labs in ED showed WBC 13K, H /H normal. BMP unremarkable Mg 1.6. Triglycerides 2000, Amylase and Lipase up to 600 and 5000 respectively. He does get plasmapheresis for his hypertriglyceridemia every 2 weeks, due today at [facility] [place]. His CT abd/pelvis w IV contrast: 1. Findings consistent with widespread acute pancreatitis. 2. Considerable peripancreatic infiltrative change in the region of the pancreatic tail and body. 3. 2 cm developing pancreatic pseudocyst pancreatic head versus diverticulum of the descending duodenal sweep. 4. No evidence for drainable abscess or collection. 5. Nonobstructive small bowel ileus. 6. Fatty infiltration of liver with stable hepatomegaly. He denies any ETOH, tobacco, new meds. Past Medical/Surgical History Medical Problems: (1) Acute pancreatitis Status: Acute (2) Dehydration Status: Acute (3) Hypertriglyceridemia Status: Acute (4) Postoperative abdominal pain Status: Acute (5) Vomiting Status: Acute Past Medical History: See HPI Past Surgical History: Tonsillectomy and adenoidectomy Cholecystectomy Partial Whipple for choledochal cyst. Family History Cancer Diabetes mellitus Hypertension Social History Smoking Status: Current Every Day Smoker Alcohol Use: none Drug Use: none Housing Status: lives with family Occupation Status: employed Allergies Coded Allergies: No Known Allergies (Unverified , 05/12/17) Current Medications Home Meds and Scripts Medications Dose Route/Sig Max Daily Dose Days Date Category Dose Instructions Jardiance (Empagliflozin) 10 Mg Tab 10 Mg PO DAILY 03/23/18 Reported Tylenol (Acetaminophen) 325 Mg Tab 650 Mg PO Q6 PRN 05/12/17 Reported Aspirin 325 Mg Ectab 325 Mg PO HS 05/12/17 Reported Glucophage (Metformin Hcl) 1,000 Mg Tab 1,000 Mg PO BID 05/12/17 Reported Niacin Er (Niacin (Antihyperlipidemic)) 1,000 Mg Tab 1,000 Mg PO QPM 05/15/15 Reported TAKE WITH NIACIN ER 500MG TO EQUAL 1,500MG DOSE Niacin ER (Niacin) 500 Mg Tabcr 500 Mg PO QPM 05/15/15 Reported TAKE WITH NIACIN ER 1,000MG TO EQUAL 1,500MG DOSE Lipitor (Atorvastatin Calcium) 40 Mg Tab 40 Mg PO QPM 05/15/15 Reported Retaine Om3 ([place] 3 Fatty Acids-Evening Pr) 1 Cap Cap 2 Cap PO BID 05/15/15 Reported Prilosec (Omeprazole) 20 Mg Capcr 20 Mg PO DAILY 06/03/14 Reported Lopid (Gemfibrozil) 600 Mg Tab 600 Mg PO BID 06/03/14 Reported Review of Systems Constitutional: + fever, No chills Respiratory: No cough, No shortness of breath Cardiac: No chest pain Abdomen: + pain, + nausea, + vomiting, No diarrhea, No constipation, No GI bleeding Skin: No rash, No itch, No jaundice Physical Exam Date Time Temp Pulse Resp B/P (MAP) Pulse Ox O2 Delivery O2 Flow Rate FiO2 03/23/18 11:45 Room Air 03/23/18 11:25 36.7 100 24 147/ (49) 97 Room Air 03/23/18 09:10 88 03/23/18 08:38 94 18 133/69 98 Room Air 03/23/18 07:55 98 Room Air 03/23/18 07:11 87 18 176/98 95 Room Air 03/23/18 06:19 143/81 03/23/18 05:57 74 16 98 Room Air 03/23/18 05:49 73 03/23/18 05:35 146/97 03/23/18 05:27 36.9 71 20 146/97 98 Room Air General Appearance: + mild distress (c/o abd pain ) Eyes: normal inspection, PERRL, EOMI Neck: supple, no JVD, trachea midline Respiratory/Chest: normal breath sounds, no respiratory distress, no accessory muscle use Cardiovascular: regular rate, rhythm, no gallop, no murmur Abdomen: soft, + abnormal bowel sounds (hypoactive ), + tenderness (diffuse but more along L side abd ) Extremities: normal inspection, no pedal edema, no calf tenderness Neurologic/Psych: alert, normal mood/affect, oriented x 3 Skin: normal color, no jaundice, no rash Laboratory Results Last 24 Hours Test 03/23/18 04:54 03/23/18 05:30 03/23/18 06:50 03/23/18 10:16 White Blood Count 13.07 K/uL Red Blood Count 5.46 M/uL Hemoglobin 13.7 g/dL Hematocrit 41.4 % Mean Corpuscular Volume 75.8 fL Mean Corpuscular Hemoglobin 25.1 pg Mean Corpuscular Hemoglobin Concent 33.1 g/dl Platelet Count 336 K/uL Mean Platelet Volume 10.7 fL Neutrophils (%) (Auto) 83.7 % Lymphocytes (%) (Auto) 9.9 % Monocytes (%) (Auto) 5.0 % Eosinophils (%) (Auto) 0.6 % Basophils (%) (Auto) 0.2 % Neutrophils # (Auto) 10.94 K/uL Lymphocytes # (Auto) 1.29 K/uL Monocytes # (Auto) 0.66 K/uL Eosinophils # (Auto) 0.08 K/uL Basophils # (Auto) 0.02 K/uL RDW Standard Deviation 42.6 fL RDW Coefficient of Variation 16.7 % Immature Granulocyte % (Auto) 0.6 % Immature Granulocyte # (Auto) 0.08 K/uL Nucleated RBC Absolute Count (auto) 0.23 K/uL Nucleated Red Blood Cells % 1.7 % Red Blood Cell Morphology Unremarkable Urine Color YELLOW Urine Appearance CLEAR Urine pH 5.5 Urine Specific [place] 1.036 Urine Protein 3+ Urine Glucose (UA) 3+ Urine Ketones 2+ Urine Occult Blood TRACE Urine Nitrite NEG Urine Bilirubin NEG Urine Urobilinogen NEG Urine Leukocyte Esterase NEG Urine WBC (Auto) 1-5 /hpf Urine RBC (Auto) 0-4 /hpf Urine Hyaline Casts (Auto) 1-5 /lpf Urine Epithelial Cells (Auto) 10-20 /lpf Urine Bacteria (Auto) NEG Sodium Level 137 mmol/L Potassium Level 3.5 mmol/L Chloride Level 104 mmol/L Carbon Dioxide Level 25 mmol/L Anion Gap 8.0 mmol/L Blood Urea Nitrogen 10 mg/dl Creatinine 0.93 mg/dl Est Creatinine Clear Calc Drug Dose 138.0 ml/min Estimated GFR () 121.1 Estimated GFR (Non- 104.5 BUN/Creatinine Ratio 11.2 Random Glucose 139 mg/dl Calcium Level 9.2 mg/dl Magnesium Level 1.6 mg/dl Total Bilirubin 0.9 mg/dl Direct Bilirubin < 0.1 mg/dl Aspartate Amino Transf (AST/SGOT) 24 U/L Alanine Aminotransferase (ALT/SGPT) 30 U/L Alkaline Phosphatase 65 U/L Total Protein 7.6 gm/dl Albumin 3.7 gm/dl Triglycerides Level 2021 mg/dl Amylase Level 640 U/L Lipase 5783 U/L Bedside Glucose 136 mg/dl Test 03/23/18 11:03 Bedside Glucose 137 mg/dl Impression Patient is a 37 year old male w hx of hypertriglyceridemia, admitted for recurrent pancreatitis. Plan - NPO except ice chips and sips - He undergoes plasmapheresis every 2 week for his to help lower his triglycerides, due today. While admitted here, we'll try Insulin gtt 0.1units/kg /hour while administering D5W IVF solution to prevent hypoglycemia. His blood glucose should be checked every hour to adjust insulin and D5W accordingly. His triglyceride level should be checked every 12 hours, stop insulin gtt if triglyceride level is <500. - GI will follow along - Supportive care with antiemetics and analgesics otherwise. ATTESTATION: I have performed a history and physical examination of this patient and reviewed the electronic record. Specifically on physical examination.there is moderate abdominal tenderness but no respiratory compromise I have discussed the case with MARTY Ness. The above note reflects my findings, conclusions, and recommendations. Renan Willett MD
[2018-03-23] MEDS: MAGNESIUM SULFATE 1GM / D5W 100 ML IV SCH ×2 (12:37→13:33)
[2018-03-23] MEDS: ACETAMINOPHEN 325 MG TAB PO PRN (13:13)
[2018-03-23] MEDS ORDERED: PNEUMOCOCCAL ADMINISTRATION CHARGE ONE (14:00)
[2018-03-23] MEDS ORDERED: PNEUMOCOCCAL POLYSACCHARIDES 25 MCG/0.5 ML VIAL/SYR IM. ONE (14:00)
--- NOTE | 2018-03-23 14:41 | History and Physical ---
History & Physical Date & Time of Service: Mar 23, 2018 ~ 0930 Chief Complaint: Abdominal pain Primary Care Physician: Kobi Beck D.O. History of Present Illness 37-year-old male who presents the ED with abdominal pain. Patient has history of recurrent pancreatitis secondary to hypertriglyceridemia. Patient currently receives apheresis every 2 weeks at [facility]. Patient reports his abdominal pain began last night. He reports the pain initially began in the lower part of his abdomen and radiate up into the epigastric area. He did have associated nausea and vomiting. He denies any hematemesis or coffee-ground emesis. He reports fever and chills. His temperature at home was 100.8. No chest pain or shortness of breath. He denies lightheadedness, dizziness, diaphoresis, syncopal events. No diarrhea, bright red bleeding per rectum, or dark tarry stools. He denies any urinary symptoms. In the ED, patient's lipase is 5783, triglycerides 2020, WBC 13 K. Patient is currently hemodynamically stable. He received IVF, IV Zofran, IV morphine. Past Medical/Surgical History Medical Problems: (1) Choledochocyst Status: Chronic (2) DM type 2 (diabetes mellitus, type 2) Status: Chronic (3) [place] type V hyperlipoproteinemia Status: Chronic (4) Pancreatitis Status: Resolved (5) Recurrent pancreatitis Status: Chronic Surgical Problems: (1) Hx of cholecystectomy Status: Chronic (2) S/P tonsillectomy and adenoidectomy Status: Chronic (3) Status post Whipple Status: Chronic Family History Diabetes mellitus FATHER MOTHER Social History Smoking Status: Former Smoker Alcohol Use: none Occupational Status: employed Immunizations History of Influenza Vaccine: Yes Influenza Vaccine Date: May 24, 2017 History of Tetanus Vaccine?: Yes Tetanus Immunization Date: Jul 15, 2011 History of Pneumococcal: Yes Pneumococcal Date: Jul 26, 2012 Allergies Coded Allergies: No Known Allergies (Unverified , 05/12/17) Home Medications Scheduled Aspirin (Aspirin), 325 MG PO HS Atorvastatin (Lipitor), 40 MG PO QPM Empagliflozin (Jardiance), 10 MG PO DAILY Gemfibrozil (Lopid), 600 MG PO BID Metformin Hcl (Glucophage), 1,000 MG PO BID Niacin (Niacin ER), 500 MG PO QPM Niacin (Antihyperlipidemic) (Niacin Er), 1,000 MG PO QPM [place] 3 Fatty Acids-Evening Pr (Retaine Om3), 2 CAP PO BID Omeprazole (Prilosec), 20 MG PO DAILY Scheduled PRN Acetaminophen (Tylenol), 650 MG PO Q6 PRN for Pain Review of Systems ROS per HPI, all other systems reviewed and negative Physical Exam Vital Signs Date Time Temp Pulse Resp B/P (MAP) Pulse Ox O2 Delivery O2 Flow Rate FiO2 03/23/18 13:08 37.9 03/23/18 11:45 Room Air 03/23/18 11:25 36.7 100 24 147/ (49) 97 Room Air 03/23/18 09:10 88 03/23/18 08:38 94 18 133/69 98 Room Air 03/23/18 07:55 98 Room Air 03/23/18 07:11 87 18 176/98 95 Room Air 03/23/18 06:19 143/81 03/23/18 05:57 74 16 98 Room Air 03/23/18 05:49 73 03/23/18 05:35 146/97 03/23/18 05:27 36.9 71 20 146/97 98 Room Air General Appearance: WD/WN, no apparent distress Head: normocephalic, atraumatic Eyes: normal inspection, EOMI, sclerae normal ENT: hearing grossly normal, + pertinent finding (Mucous members moist) Neck: supple, no JVD, trachea midline Respiratory/Chest: lungs clear, normal breath sounds, no respiratory distress Cardiovascular: regular rate, rhythm, no edema, normal peripheral pulses Abdomen/GI: normal bowel sounds, soft, no organomegaly, + tenderness ( Epigastric, left upper quadrant, left lower quadrant) Extremities/Musculoskelatal: normal inspection, no calf tenderness, normal capillary refill Neurologic/Psych: no motor/sensory deficits, alert, normal mood/affect, oriented x 3 Skin: normal color, warm/dry Diagnostics Laboratory Results Results Past 24 Hours Test 03/23/18 04:54 03/23/18 05:30 03/23/18 06:50 03/23/18 10:16 Range/Units White Blood Count 13.07 4.8-10.8 K/uL Red Blood Count 5.46 4.7-6.1 M/uL Hemoglobin 13.7 14.0-18.0 g/dL Hematocrit 41.4 42-52 % Mean Corpuscular Volume 75.8 80-100 fL Mean Corpuscular Hemoglobin 25.1 25-34 pg Mean Corpuscular Hemoglobin Concent 33.1 32-36 g/dl Platelet Count 336 130-400 K/uL Mean Platelet Volume 10.7 7.4-10.4 fL Neutrophils (%) (Auto) 83.7 % Lymphocytes (%) (Auto) 9.9 % Monocytes (%) (Auto) 5.0 % Eosinophils (%) (Auto) 0.6 % Basophils (%) (Auto) 0.2 % Neutrophils # (Auto) 10.94 1.4-6.5 K/uL Lymphocytes # (Auto) 1.29 1.2-3.4 K/uL Monocytes # (Auto) 0.66 0.11-0.59 K/uL Eosinophils # (Auto) 0.08 0-0.5 K/uL Basophils # (Auto) 0.02 0-0.2 K/uL RDW Standard Deviation 42.6 36.4-46.3 fL RDW Coefficient of Variation 16.7 11.5-14.5 % Immature Granulocyte % (Auto) 0.6 % Immature Granulocyte # (Auto) 0.08 0.00-0.02 K/uL Nucleated RBC Absolute Count (auto) 0.23 0-0 K/uL Nucleated Red Blood Cells % 1.7 % Red Blood Cell Morphology Unremarkable Urine Color YELLOW Urine Appearance CLEAR CLEAR Urine pH 5.5 4.5-7.5 Urine Specific [place] 1.036 1.000-1.030 Urine Protein 3+ NEG Urine Glucose (UA) 3+ NEG Urine Ketones 2+ NEG Urine Occult Blood TRACE NEG Urine Nitrite NEG NEG Urine Bilirubin NEG NEG Urine Urobilinogen NEG NEG Urine Leukocyte Esterase NEG NEG Urine WBC (Auto) 1-5 0-5 /hpf Urine RBC (Auto) 0-4 0-4 /hpf Urine Hyaline Casts (Auto) 1-5 0-5 /lpf Urine Epithelial Cells (Auto) 10-20 0-5 /lpf Urine Bacteria (Auto) NEG NEG Sodium Level 137 136-145 mmol/L Potassium Level 3.5 3.5-5.1 mmol/L Chloride Level 104 98-107 mmol/L Carbon Dioxide Level 25 21-32 mmol/L Anion Gap 8.0 3-11 mmol/L Blood Urea Nitrogen 10 7-18 mg/dl Creatinine 0.93 0.60-1.40 mg/dl Est Creatinine Clear Calc Drug Dose 138.0 ml/min Estimated GFR () 121.1 Estimated GFR (Non- 104.5 BUN/Creatinine Ratio 11.2 10-20 Random Glucose 139 70-99 mg/dl Calcium Level 9.2 8.5-10.1 mg/dl Magnesium Level 1.6 1.8-2.4 mg/dl Total Bilirubin 0.9 0.2-1 mg/dl Direct Bilirubin < 0.1 0-0.2 mg/dl Aspartate Amino Transf (AST/SGOT) 24 15-37 U/L Alanine Aminotransferase (ALT/SGPT) 30 12-78 U/L Alkaline Phosphatase 65 45-117 U/L Total Protein 7.6 6.4-8.2 gm/dl Albumin 3.7 3.4-5.0 gm/dl Triglycerides Level 2021 0-150 mg/dl Amylase Level 640 25-115 U/L Lipase 5783 73-393 U/L Bedside Glucose 136 70-99 mg/dl Test 03/23/18 11:03 03/23/18 11:58 03/23/18 13:38 Range/Units Bedside Glucose 137 127 70-99 mg/dl Microbiology Results 03/23/18 Blood Culture, Ordered Pending 03/23/18 Blood Culture, Ordered Pending Diagnostic Radiology CT ABD/PELVIS IMPRESSION: 1. Findings consistent with widespread acute pancreatitis. 2. Considerable peripancreatic infiltrative change in the region of the pancreatic tail and body. 3. 2 cm developing pancreatic pseudocyst pancreatic head versus diverticulum of the descending duodenal sweep. 4. No evidence for drainable abscess or collection. 5. Nonobstructive small bowel ileus. 6. Fatty infiltration of liver with stable hepatomegaly. Impression Assessment and Plan ACUTE PANCREATITIS -Admit to telemetry -Patient presenting from home with reports of increasing abdominal pain since yesterday; in the ED, lipase and CT abd/pelvis consistent with acute pancreatitis -History of recurrent pancreatitis secondary to hypertriglyceridemia; patient has history of recurrent pancreatitis and type V hyperlipoproteinemia and receives apheresis every 2 weeks at [facility] -Discussed case with MARTY Ness; will start insulin drip at 0.1 units/ kg/hr and D5W Normosol-R 150 cc an hour -will adjust insulin and IVF according to triglycerides and glucose levels -No role for antibiotics at this time, WBC 13 K however no signs of abscess or necrosis on CT scan -Oral medications for lipid management include atorvastatin, gemfibrozil, niacin , fish oil HYPOKALEMIA, HYPOMAGNESEMIA -Replace, follow potassium closely while on insulin drip DM TYPE II -Hgb A1c 8.0 09/2017 -On metformin and Jardiance at home -On insulin drip as above DVT PROPHYLAXIS -SCDs, ambulate DISPOSITION -In my clinical judgment this beneficiary meets acute admission criteria, established by [facility], that includes being hospitalized through two midnights. Dr. Casillas attending addendum I have seen and assessed the patient with HYDROMETEOROLOGICAL TECHNICIAN Dede Gaona and agree with the assessment and plan as above and would like to add that: Patient a 37 year old male w hx of hypertriglyceridemia, admitted for recurrent pancreatitis Have followed the gastrointestinal service consult recommendations to have patient on Insulin drip while administering D5W IVF solution to reduce triglycerides. Insulin drip has been stopped as recent triglyceride 328 which is less than target of 500. Patient switched to Lactated Ringers. Patient will have triglycerides rechecked. If it becomes triglycerides become elevated above 500 then will again plan on restarting insulin drip. Continue to keep NPO except meds/water sips/ice chips. Give antiemetics and analgesics otherwise. Patients reports that he is tolerating the pain. Denies chest pain or shortness of breath. Physical Exam: mild pain but not in acute distress Heart: Pain induced tachycardia Lungs: Clear to auscultation, no wheezes Abdomen: soft, bowel sounds present, no guarding Extremities: no edema Neuro: verbal, speaks in full sentences Advanced Directives Existing Living Will: No Existing Power of Outpatient Facility Physical Therapist: No Resuscitation Status VTE Prophylaxis Will order VTE Prophylaxis: Yes
[2018-03-23] MEDS: HYDROmorphone INJ 0.5 MG/0.5 ML SYR IV PRN ×2 (16:04→20:03)
[2018-03-23 16:27] LABS: CALCIUM 8.5 mg/dl (8.5-10.1); CREATININE 0.78 mg/dl (0.60-1.40)
[2018-03-23] MEDS ORDERED: PHARMACY GLYCEMIC MGMT CONSULT PRN (16:38)
[2018-03-23] MEDS: LACTATED RINGER'S 1000ML 1,000 ML IV SCH ×2 (16:50→21:49)
[2018-03-23] MEDS: INSULIN ASPART 100 UNITS/ML 3 ML PEN SC SCH ×2 (18:00→23:49)
--- NOTE | 2018-03-23 20:06 | Pharmacy Progress Note ---
Glycemic Control Intl Consult Date of Service Mar 23, 2018. Scope Glycemic Pharmacist consulted by Addison Gaona PA-C on 03/23/18 for glycemic control and to write orders per [facility] inpatient glycemic control protocol Objective Weight (Kilograms): 107.800 Accuchecks BSG (last 24hrs): Test 03/23/18 06:50 03/23/18 10:16 03/23/18 11:03 03/23/18 11:58 Random Glucose 139 mg/dl (70-99) Bedside Glucose 136 mg/dl (70-99) 137 mg/dl (70-99) 127 mg/dl (70-99) Test 03/23/18 13:18 03/23/18 14:16 03/23/18 15:26 03/23/18 15:40 Bedside Glucose 114 mg/dl (70-99) 110 mg/dl (70-99) 116 mg/dl (70-99) Random Glucose 103 mg/dl (70-99) Test 03/23/18 16:16 Bedside Glucose 112 mg/dl (70-99) Laboratory Data (last 24hrs) Test 03/23/18 04:54 03/23/18 06:50 03/23/18 15:40 03/23/18 19:23 White Blood Count 13.07 K/uL Red Blood Count 5.46 M/uL Hemoglobin 13.7 g/dL Hematocrit 41.4 % Mean Corpuscular Volume 75.8 fL Mean Corpuscular Hemoglobin 25.1 pg Mean Corpuscular Hemoglobin Concent 33.1 g/dl Platelet Count 336 K/uL Mean Platelet Volume 10.7 fL Neutrophils (%) (Auto) 83.7 % Lymphocytes (%) (Auto) 9.9 % Monocytes (%) (Auto) 5.0 % Eosinophils (%) (Auto) 0.6 % Basophils (%) (Auto) 0.2 % Neutrophils # (Auto) 10.94 K/uL Lymphocytes # (Auto) 1.29 K/uL Monocytes # (Auto) 0.66 K/uL Eosinophils # (Auto) 0.08 K/uL Basophils # (Auto) 0.02 K/uL Anion Gap 8.0 mmol/L 10.0 mmol/L BUN/Creatinine Ratio 11.2 11.8 Blood Urea Nitrogen 10 mg/dl 9 mg/dl Creatinine 0.93 mg/dl 0.78 mg/dl Potassium Level 3.5 mmol/L mmol/L Sodium Level 137 mmol/L 137 mmol/L Recent Pertinent Medications Outpatient Anti-diabetic Regimen: * Jardiance 10 mg PO qAM and metformin 1000 mg PO BID * A1c unknown - ordered for 03/24 Assessment & Plan ASSESSMENT: * 37 yr old T2DM male admitted for recurrent pancreatitis secondary to hypertriglyceridemia. * The patient was started on an IV insulin infusion per recommendation of GI for hypertriglyceridemia. Infusion was discontinued around 1630 after triglyceride level decreased to 328. Pharmacy was then consulted for glycemic management. * Outpatient glycemic control is unknown - ordered A1c for tomorrow. * Pt is maintained on oral antidiabetic agents as an outpatient. Will hold oral agents for admission and utilize SQ basal bolus insulin regimen which is the recommended regimen for inpatient glycemic control. * Will initiate weight based insulin dosing for insulin jimmy patient and titrate based on BSG trends. PLAN FOR INPATIENT GLYCEMIC CONTROL: * Holding outpatient oral diabetes medications * Basal insulin * none at this time per all BSGs have been < 140 mg/dL * Bolus Insulin * Novolog per scale ACHS or Q6hrs while NPO * Goal Range: Low 110 mg/dL - High 140 mg/dL * Correction Factor: 25 mg/dL/unit * Nutritional / Prandial insulin per carb ratio of 1 unit per 9 grams CHO consumed Thank you.
[2018-03-23] MEDS ORDERED: POTASSIUM CHLORIDE 10 MEQ TABCR PO STA (21:54)
[2018-03-24] VITALS (8 sets, daily range): BP systolic 101–142; BP diastolic 67–82; PULSE 109–131; TEMP 37.3–38.3; O2SAT 90–92
[2018-03-24] MEDS: HYDROmorphone INJ 0.5 MG/0.5 ML SYR IV PRN ×5 (00:04→22:00)
[2018-03-24 00:46] LABS: ALBUMIN 3.1 gm/dl (3.4-5.0); CALCIUM 8.1 mg/dl (8.5-10.1); CREATININE 0.94 mg/dl (0.60-1.40); POTASSIUM 3.6 mmol/L (3.5-5.1)
[2018-03-24 01:02] LABS: HEMATOCRIT 43.2 % (42-52); HEMOGLOBIN 14.7 g/dL (14.0-18.0); MEAN CELL VOLUME 74.9 fL (80-100); MEAN CORPUSCULAR HEMOGLOBIN 25.5 pg (25-34); MEAN PLATELET VOLUME 10.1 fL (7.4-10.4); PLATELET COUNT 178 K/uL (130-400); RED CELL DISTRIBUTION WIDTH CV 16.3 % (11.5-14.5); RED CELL DISTRIBUTION WIDTH SD 44.1 fL (36.4-46.3); WHITE BLOOD COUNT 12.35 K/uL (4.8-10.8)
[2018-03-24] MEDS: LACTATED RINGER'S 1000ML 1,000 ML IV SCH ×5 (02:49→21:03)
[2018-03-24] MEDS ORDERED: METOPROLOL TARTRATE 1 MG/ML VIAL IV PRN (04:30)
[2018-03-24] MEDS: INSULIN ASPART 100 UNITS/ML 3 ML PEN SC SCH ×4 (06:06→21:00)
[2018-03-24 06:11] LABS: HEMOGLOBIN A1C 6.4 % (4.5-5.6)
[2018-03-24] MEDS ORDERED: MAGNESIUM SULFATE 1GM / D5W 100 ML IV ONE (07:30)
[2018-03-24] MEDS: PANTOprazole SOD 40 MG TAB PO SCH (07:55)
[2018-03-24 08:25] LABS: CALCIUM 9.1 mg/dl (8.5-10.1); POTASSIUM 3.6 mmol/L (3.5-5.1)
[2018-03-24] MEDS: ACETAMINOPHEN 325 MG TAB PO PRN ×3 (09:52→18:52)
[2018-03-24] MEDS ORDERED: LACTATED RINGER'S 1000ML 1,000 ML IV SCH (10:00)
--- NOTE | 2018-03-24 10:06 | Gastroenterology Progress Note ---
Progress Note Date of Service: Mar 24, 2018 Subjective Pt evaluation today including: conversation w/ patient, physical exam, chart review, lab review, review of inpatient medication list Pt c/o headache, abd pain is improved some. He spiked temp x 2 up to 37.7. HR up to 110s. Insulin gtt stopped once his Triglyceride down to 300s. Lipase down to 800s from 5K last night, pending this AM. Review of Systems Constitutional: + fever, No chills Respiratory: No cough, No shortness of breath Cardiac: No chest pain Abdomen: + pain, No nausea, No vomiting Neuro: + see HPI Medications Current Inpatient Medications Medications (Trade) Dose Ordered Sig/Rogelio Route Start Time Stop Time Status Last Admin Dose Admin Ioversol (Optiray 320) 100 ml UD PRN IV 03/23/18 06:00 03/27/18 05:59 Acetaminophen (Tylenol Tab) 650 mg Q4H PRN PO 03/23/18 09:30 04/22/18 09:29 03/24/18 09:52 650 MG Ondansetron HCl (Zofran Inj) 4 mg Q6H PRN IV 03/23/18 09:30 04/22/18 09:29 Glucose (Glucose 40% Gel) 15-30 GRAMS 15 GRAMS... UD PRN PO 03/23/18 09:45 04/22/18 09:44 Glucose (Glucose Chew Tab) 4-8 Tablets 4 Tabl... UD PRN PO 03/23/18 09:45 04/22/18 09:44 Dextrose (Dextrose 50% 50ML Syringe) 25-50ML 25ML FOR ... UD PRN IV 03/23/18 09:45 04/22/18 09:44 Glucagon (Glucagon Inj) 1 mg UD PRN IM 03/23/18 09:45 04/22/18 09:44 Carbohydrates (Carbohydrates For Hypoglycemia) 15-30 GRAMS 15 grams if BSG 54-69... UD PRN PO 03/23/18 09:45 04/22/18 09:44 Pantoprazole Sodium (Protonix Tab) 40 mg QAM PO 03/24/18 09:00 04/23/18 08:59 03/24/18 07:55 40 MG Hydromorphone HCl (Dilaudid Inj) 0.5 mg Q4H PRN IV 03/23/18 15:45 04/06/18 15:44 03/24/18 09:48 0.5 MG Miscellaneous Information (Consult Glycemic Management Pharmacy) 1 ea UD PRN N/A 03/23/18 16:38 04/22/18 16:37 Lactated Ringer's 1,000 ml @ 200 mls/hr Q5H IV 03/23/18 16:45 04/22/18 16:44 03/24/18 07:56 200 MLS/HR Insulin Aspart (novoLOG ASPART) SLIDING SCALE Q6 SC 03/23/18 18:00 04/22/18 17:59 03/24/18 06:06 1 UNITS Metoprolol Tartrate (Lopressor Iv) 2.5 mg Q6 PRN IV 03/24/18 04:30 04/23/18 04:29 Objective Vital Signs Date Time Temp Pulse Resp B/P (MAP) Pulse Ox O2 Delivery O2 Flow Rate FiO2 03/24/18 08:00 Room Air 03/24/18 07:01 37.7 115 24 116/79 (91) 90 Room Air 03/24/18 04:25 37.4 118 24 101/67 (78) 92 Room Air 03/24/18 00:00 Room Air 03/23/18 23:59 37.5 126 24 127/74 (91) 94 Room Air 03/23/18 20:14 36.7 115 18 134/84 (101) 91 Room Air 03/23/18 20:00 119 143/87 (105) 91 Room Air 03/23/18 16:00 97 Room Air 03/23/18 14:21 37.5 03/23/18 13:08 37.9 03/23/18 11:45 Room Air 03/23/18 11:25 36.7 100 24 147/ (49) 97 Room Air Physical Exam General Appearance: + mild distress (appears tired, wet washcloth over forehead ) Eyes: normal inspection, PERRL, EOMI Neck: supple, no JVD, trachea midline Respiratory/Chest: normal breath sounds, no respiratory distress, no accessory muscle use Cardiovascular: no gallop, no murmur, + tachycardia Abdomen: soft, + abnormal bowel sounds (hypoactive), + tenderness (diffuse ) Extremities: normal inspection, no pedal edema, no calf tenderness Neurologic/Psych: alert, normal mood/affect, oriented x 3 Skin: normal color, no jaundice, no rash Laboratory Results Last 24 Hours Test 03/23/18 10:16 03/23/18 11:03 03/23/18 11:58 03/23/18 13:18 Bedside Glucose 136 mg/dl 137 mg/dl 127 mg/dl 114 mg/dl Test 03/23/18 14:16 03/23/18 15:26 03/23/18 15:40 03/23/18 16:16 Bedside Glucose 110 mg/dl 116 mg/dl 112 mg/dl Sodium Level 137 mmol/L Potassium Level mmol/L Chloride Level 106 mmol/L Carbon Dioxide Level 21 mmol/L Anion Gap 10.0 mmol/L Blood Urea Nitrogen 9 mg/dl Creatinine 0.78 mg/dl Est Creatinine Clear Calc Drug Dose 164.5 ml/min Estimated GFR () 133.7 Estimated GFR (Non- 115.3 BUN/Creatinine Ratio 11.8 Random Glucose 103 mg/dl Calcium Level 8.5 mg/dl Triglycerides Level 328 mg/dl Test 03/23/18 18:26 03/23/18 19:23 03/23/18 23:43 03/24/18 00:14 Bedside Glucose 117 mg/dl 144 mg/dl Triglycerides Level 298 mg/dl 493 mg/dl White Blood Count 12.35 K/uL Red Blood Count 5.77 M/uL Hemoglobin 14.7 g/dL Hematocrit 43.2 % Mean Corpuscular Volume 74.9 fL Mean Corpuscular Hemoglobin 25.5 pg Mean Corpuscular Hemoglobin Concent 34.0 g/dl RDW Standard Deviation 44.1 fL RDW Coefficient of Variation 16.3 % Platelet Count 178 K/uL Mean Platelet Volume 10.1 fL Sodium Level 138 mmol/L Potassium Level 3.6 mmol/L Chloride Level 106 mmol/L Carbon Dioxide Level 23 mmol/L Anion Gap 9.0 mmol/L Blood Urea Nitrogen 12 mg/dl Creatinine 0.94 mg/dl Est Creatinine Clear Calc Drug Dose 136.5 ml/min Estimated GFR () 119.6 Estimated GFR (Non- 103.2 BUN/Creatinine Ratio 12.9 Random Glucose 135 mg/dl Estimated Average Glucose 137 mg/dl Hemoglobin A1c 6.4 % Calcium Level 8.1 mg/dl Total Bilirubin 0.7 mg/dl Aspartate Amino Transf (AST/SGOT) 17 U/L Alanine Aminotransferase (ALT/SGPT) 26 U/L Alkaline Phosphatase 50 U/L Total Protein 7.0 gm/dl Albumin 3.1 gm/dl Globulin 3.9 gm/dl Albumin/Globulin Ratio 0.8 Lipase 814 U/L Test 03/24/18 04:58 03/24/18 06:04 03/24/18 07:36 Magnesium Level 1.7 mg/dl Bedside Glucose 163 mg/dl Sodium Level 139 mmol/L Potassium Level 3.6 mmol/L Chloride Level 103 mmol/L Carbon Dioxide Level 27 mmol/L Anion Gap 8.0 mmol/L Blood Urea Nitrogen 14 mg/dl Creatinine 1.00 mg/dl Est Creatinine Clear Calc Drug Dose 128.3 ml/min Estimated GFR () 110.9 Estimated GFR (Non- 95.7 BUN/Creatinine Ratio 13.8 Random Glucose 124 mg/dl Calcium Level 9.1 mg/dl Total Bilirubin 0.7 mg/dl Aspartate Amino Transf (AST/SGOT) 16 U/L Alanine Aminotransferase (ALT/SGPT) 21 U/L Alkaline Phosphatase 44 U/L Total Protein 7.0 gm/dl Albumin 3.0 gm/dl Globulin 4.0 gm/dl Albumin/Globulin Ratio 0.8 Triglycerides Level 385 mg/dl Assessment and Plan Patient is a 37 year old male w hx of hypertriglyceridemia, admitted for recurrent pancreatitis. He spiked temp x 2 up to 37.7. HR up to 110s. Insulin gtt stopped once his Triglyceride down to 300s. Lipase down to 800s from 5K last night, pending this AM. Plan - CL diet - IVF LR @ 150ml/hr; bolus 1L LR this AM - GI will follow along - Supportive care with antiemetics and analgesics otherwise. ATTESTATION: I have performed a history and physical examination of this patient and reviewed the electronic record. Specifically on physical examination there is less abdominal tenderness. I have discussed the case with MARTY Ness. The above note reflects my findings, conclusions, and recommendations. Renan Willett MD
[2018-03-24] MEDS ORDERED: POLYETHYLENE (MIRALAX) 17 GM PACK PO PRN (12:30)
--- NOTE | 2018-03-24 16:28 | Progress Note ---
Progress Note Date of Service Mar 24, 2018. Progress Note Subjective: Patient's abdominal pain is better controlled today compared to yesterday. denies chest pain. denies shortness of breath. Patient denies problems with urination. Reported last bowel movement around 2 days ago Physical Exam General; No acute distress Lungs: clear to auscultation bilaterally Heart: tachycardia Abdomen: soft, bowel sounds present, tenderness towards left lower quadrant Extremities: no edema Assessment and Plan ACUTE PANCREATITIS -History of recurrent pancreatitis secondary to hypertriglyceridemia; patient has history of recurrent pancreatitis and type V hyperlipoproteinemia and receives apheresis every 2 weeks at [facility] -on admission with elevated triglycerides, and lipase with CT abdomen /pelvis consistent with acute pancreatitis -patient was on insulin drip as recommended by gastroenterology service on to bring down the triglycerides. Insulin drip after triglycerides less than 500 -Oral medications for lipid management include atorvastatin, gemfibrozil, niacin , fish oil -advanced on clear liquid diet; on IV fluids HYPOKALEMIA, HYPOMAGNESEMIA -hypokalemia resolved -patient give IV magnesium for hypomagnesemia DM TYPE II -Hgb A1c 8.0 09/2017 -On metformin and Jardiance at home; continue to hold -subcutaneous insulin as per protocol with fingerstick glucose Tachycardia likely from pancreatitis pain If patient spike a fever above 100.8F, then blood cultures should be drawn and broad spectrum antibiotics should be started to cover potential intraabdominal bacteria sources of infection DVT PROPHYLAXIS: SCD, ambulation
[2018-03-24] MEDS ORDERED: NURSING VERBAL MED ORDER ONE (16:30)
[2018-03-25] VITALS (12 sets, daily range): BP systolic 122–143; BP diastolic 72–79; PULSE 94–131; TEMP 37–39.1; O2SAT 90–95
[2018-03-25] MEDS: HYDROmorphone INJ 0.5 MG/0.5 ML SYR IV PRN ×4 (02:02→23:22)
[2018-03-25] MEDS: LACTATED RINGER'S 1000ML 1,000 ML IV SCH ×3 (02:03→13:35)
[2018-03-25] MEDS: ACETAMINOPHEN 325 MG TAB PO PRN ×4 (02:09→19:07)
[2018-03-25] MEDS ORDERED: ACETAMINOPHEN 325 MG TAB PO STA (07:07)
[2018-03-25] MEDS ORDERED: ACETAMINOPHEN 325 MG TAB PO PRN (07:15)
[2018-03-25] MEDS: SENNA 8.6 MG TAB PO SCH (08:23)
[2018-03-25] MEDS: INSULIN ASPART 100 UNITS/ML 3 ML PEN SC SCH ×4 (08:25→21:00)
[2018-03-25] MEDS: PANTOprazole SOD 40 MG TAB PO SCH (08:31)
[2018-03-25] MEDS ORDERED: PIPERACILLIN/TAZOBACTAM 3.375 GM/100ML D5W IV STA (08:44)
[2018-03-25] MEDS ORDERED: PIPERACILL/TAZOBAC CONSULT ACTIVE PRN (08:45)
[2018-03-25 09:07] LABS: ALBUMIN 2.4 gm/dl (3.4-5.0); CALCIUM 8.5 mg/dl (8.5-10.1); CREATININE 0.81 mg/dl (0.60-1.40); POTASSIUM 3.7 mmol/L (3.5-5.1); TOTAL PROTEIN 6.3 gm/dl (6.4-8.2)
[2018-03-25 09:10] LABS: BASO % 0.1 %; BASO ABS # 0.01 K/uL (0-0.2); EOS % 0.6 %; EOS ABS # 0.07 K/uL (0-0.5); HEMATOCRIT 34.5 % (42-52); HEMOGLOBIN 11.4 g/dL (14.0-18.0); IG# 0.03 K/uL (0.00-0.02); LYMPH % 9.1 %; LYMPH ABS # 1.04 K/uL (1.2-3.4); MEAN CELL VOLUME 76.7 fL (80-100); MEAN CORPUSCULAR HEMOGLOBIN 25.3 pg (25-34); MEAN PLATELET VOLUME 9.6 fL (7.4-10.4); MONO % 9.3 %; MONO ABS # 1.06 K/uL (0.11-0.59); NEUT % 80.6 %; NEUT ABS # 9.23 K/uL (1.4-6.5); PLATELET COUNT 138 K/uL (130-400); RED CELL DISTRIBUTION WIDTH SD 44.9 fL (36.4-46.3); WHITE BLOOD COUNT 11.44 K/uL (4.8-10.8)
[2018-03-25] MEDS ORDERED: OPTIRAY 320 IV PRN (10:30)
[2018-03-25] MEDS ORDERED: PIPERACILL/TAZOBAC IV 3.375 GM in D5W 100 ML IV ONE (10:30)
[2018-03-25] MEDS ORDERED: PIPERACILL/TAZOBAC IV 3.375 GM in DEXTROSE 5% 100ML 100 ML IV SCH (12:00)
--- NOTE | 2018-03-25 13:08 | Gastroenterology Progress Note ---
Progress Note Date of Service: Mar 25, 2018 Subjective Pt evaluation today including: conversation w/ patient, physical exam, chart review, lab review, review of inpatient medication list Pt continues to have fever, denies any chills or rigors. First sets of blood cx and urine cx negative. Repeat blood cx pending. His abd pain is improved, tolerated CL diet this AM. WBC 13K ->11K. Lipase 108, TG 300s. Review of Systems Constitutional: + fever, No chills Respiratory: No cough, No shortness of breath Cardiac: No chest pain Abdomen: + pain (improved), No nausea, No vomiting Medications Current Inpatient Medications Medications (Trade) Dose Ordered Sig/Rogelio Route Start Time Stop Time Status Last Admin Dose Admin Ioversol (Optiray 320) 100 ml UD PRN IV 03/23/18 06:00 03/27/18 05:59 Acetaminophen (Tylenol Tab) 650 mg Q4H PRN PO 03/23/18 09:30 04/22/18 09:29 03/25/18 10:58 650 MG Ondansetron HCl (Zofran Inj) 4 mg Q6H PRN IV 03/23/18 09:30 04/22/18 09:29 Glucose (Glucose 40% Gel) 15-30 GRAMS 15 GRAMS... UD PRN PO 03/23/18 09:45 04/22/18 09:44 Glucose (Glucose Chew Tab) 4-8 Tablets 4 Tabl... UD PRN PO 03/23/18 09:45 04/22/18 09:44 Dextrose (Dextrose 50% 50ML Syringe) 25-50ML 25ML FOR ... UD PRN IV 03/23/18 09:45 04/22/18 09:44 Glucagon (Glucagon Inj) 1 mg UD PRN IM 03/23/18 09:45 04/22/18 09:44 Carbohydrates (Carbohydrates For Hypoglycemia) 15-30 GRAMS 15 grams if BSG 54-69... UD PRN PO 03/23/18 09:45 04/22/18 09:44 Pantoprazole Sodium (Protonix Tab) 40 mg QAM PO 03/24/18 09:00 04/23/18 08:59 03/25/18 08:31 40 MG Hydromorphone HCl (Dilaudid Inj) 0.5 mg Q4H PRN IV 03/23/18 15:45 04/06/18 15:44 03/25/18 08:35 0.5 MG Miscellaneous Information (Consult Glycemic Management Pharmacy) 1 ea UD PRN N/A 03/23/18 16:38 04/22/18 16:37 Lactated Ringer's 1,000 ml @ 200 mls/hr Q5H IV 03/23/18 16:45 04/22/18 16:44 03/25/18 07:16 200 MLS/HR Metoprolol Tartrate (Lopressor Iv) 2.5 mg Q6 PRN IV 03/24/18 04:30 04/23/18 04:29 03/24/18 16:22 2.5 MG Senna (Senokot Tab) 8.6 mg QAM PO 03/25/18 09:00 04/24/18 08:59 Polyethylene (Miralax Powder Packet) 17 gm DAILY PRN PO 03/24/18 12:30 04/23/18 12:29 Insulin Aspart (novoLOG ASPART) SLIDING SCALE ACHS SC 03/24/18 16:30 04/23/18 16:29 03/25/18 12:08 2 UNITS Piperacillin Sod/ Tazobactam Sod 3.375 gm/Dextrose 115 ml @ 200 mls/hr Q6 IV 03/25/18 12:00 03/27/18 11:59 UNV Miscellaneous Information (Consult) 1 ea UD PRN N/A 03/25/18 08:45 04/24/18 08:44 Ioversol (Optiray 320) 100 ml UD PRN IV 03/25/18 10:30 03/29/18 10:29 Piperacillin Sod/ Tazobactam Sod 3.375 gm/Dextrose 115 ml @ 28.75 mls/ hr Q8H IV 03/25/18 16:00 03/27/18 15:59 Objective Vital Signs Date Time Temp Pulse Resp B/P (MAP) Pulse Ox O2 Delivery O2 Flow Rate FiO2 03/25/18 08:00 Room Air 03/25/18 06:55 37.6 102 20 130/76 (94) 95 Room Air 03/25/18 04:49 37.7 105 18 128/78 (95) 92 Room Air 03/25/18 02:08 39.1 03/25/18 00:00 91 Room Air 03/25/18 00:00 38.3 112 16 125/73 (90) 91 Room Air 03/24/18 22:02 37.8 03/24/18 19:15 121 22 125/78 (94) 92 Room Air 03/24/18 18:52 38.3 03/24/18 18:05 Room Air 03/24/18 16:22 131 142/82 03/24/18 16:20 131 03/24/18 14:51 37.9 109 16 142/82 (102) 91 Room Air Physical Exam General Appearance: WD/WN, no apparent distress Eyes: normal inspection, PERRL, EOMI Neck: supple, no JVD, trachea midline Respiratory/Chest: normal breath sounds, no respiratory distress, no accessory muscle use Cardiovascular: regular rate, rhythm, no gallop, no murmur Abdomen: normal bowel sounds, non tender, soft Extremities: normal inspection, no pedal edema, no calf tenderness Neurologic/Psych: alert, normal mood/affect, oriented x 3 Skin: normal color, no jaundice, no rash Laboratory Results Last 24 Hours Test 03/24/18 16:58 03/24/18 21:04 03/25/18 07:24 03/25/18 07:45 Bedside Glucose 115 mg/dl 121 mg/dl 100 mg/dl White Blood Count 11.44 K/uL Red Blood Count 4.50 M/uL Hemoglobin 11.4 g/dL Hematocrit 34.5 % Mean Corpuscular Volume 76.7 fL Mean Corpuscular Hemoglobin 25.3 pg Mean Corpuscular Hemoglobin Concent 33.0 g/dl Platelet Count 138 K/uL Mean Platelet Volume 9.6 fL Neutrophils (%) (Auto) 80.6 % Lymphocytes (%) (Auto) 9.1 % Monocytes (%) (Auto) 9.3 % Eosinophils (%) (Auto) 0.6 % Basophils (%) (Auto) 0.1 % Neutrophils # (Auto) 9.23 K/uL Lymphocytes # (Auto) 1.04 K/uL Monocytes # (Auto) 1.06 K/uL Eosinophils # (Auto) 0.07 K/uL Basophils # (Auto) 0.01 K/uL RDW Standard Deviation 44.9 fL RDW Coefficient of Variation 16.0 % Immature Granulocyte % (Auto) 0.3 % Immature Granulocyte # (Auto) 0.03 K/uL Sodium Level 135 mmol/L Potassium Level 3.7 mmol/L Chloride Level 102 mmol/L Carbon Dioxide Level 26 mmol/L Anion Gap 8.0 mmol/L Blood Urea Nitrogen 12 mg/dl Creatinine 0.81 mg/dl Est Creatinine Clear Calc Drug Dose 160.9 ml/min Estimated GFR () 131.6 Estimated GFR (Non- 113.5 BUN/Creatinine Ratio 14.7 Random Glucose 102 mg/dl Calcium Level 8.5 mg/dl Magnesium Level 1.9 mg/dl Total Bilirubin 0.7 mg/dl Aspartate Amino Transf (AST/SGOT) 12 U/L Alanine Aminotransferase (ALT/SGPT) 14 U/L Alkaline Phosphatase 39 U/L Total Protein 6.3 gm/dl Albumin 2.4 gm/dl Globulin 3.9 gm/dl Albumin/Globulin Ratio 0.6 Triglycerides Level 307 mg/dl Lipase 198 U/L Test 03/25/18 11:16 Bedside Glucose 134 mg/dl Assessment and Plan Patient is a 37 year old male w hx of hypertriglyceridemia, admitted for recurrent pancreatitis. Insulin gtt stopped once his Triglyceride down to 300s. Lipase has normalized. He continues to spike fever w/o chills or rigors and WBC down from 13K to 11K. First sets of blood cx and urine cx negative, repeat blood cx pending. Plan - Decrease LR to rate of 75mL/Hr and stop if taking in PO food & liquids well. - Repeat CT abd/pelvis w contrast to r/o abscess/necrosis formation given fevers. He is for the time being ordered Zosyn IV by the hospitalist. - CL diet ; advance as tolerated after CT completed. - GI will follow along - Supportive care with antiemetics and analgesics otherwise. Addendum: 1. CT findings indicative of acute pancreatitis with developing distal pancreatic tail necrosis 2. Increasing peripancreatic fluid with fluid tracking into the left paracolic gutter and perinephric space. Low volume ascites. 3. No evidence of bowel obstruction. No evidence of free air 4. Hepatic steatosis and pneumobilia 5. Splenomegaly 6. Interval development of a small left pleural effusion and trace right pleural effusion. 7. Interval development of bilateral lower lobe atelectasis/consolidation with air bronchograms Discussed with Dr. Willett. Would not start IV antibx, thus will D/C Zosyn. The necrotic area fluid should be sterile and contained. We will advance his diet as tolerated. If any change in abd pain, if worsen may repeat CT scan. ATTESTATION: I have performed a history and physical examination of this patient and reviewed the electronic record. Specifically on physical examination patient appears comfortable with mild epigastric tenderness. I have discussed my findings with MARTY Ness. The above note reflects my findings, conclusions and recommendations. Renan Willett MD
--- NOTE | 2018-03-25 13:39 | DIAGNOSTIC IMAGING REPORT ---
CT ABD/PELVIS IV AND ORAL CONT CLINICAL HISTORY: pancreatitis, fevers COMPARISON STUDY: 03/23/2018 TECHNIQUE: Following the IV administration of 119 mL of Optiray-320, CT scan of the abdomen and pelvis was performed from the lung bases to the proximal femurs. Images are reviewed in the axial, sagittal, and coronal planes. IV contrast was administered without complication. A dose lowering technique was utilized adhering to the principles of ALARA. CT DOSE: 1184.63 mGycm FINDINGS: Lower chest: Since the prior study, the patient has developed moderately extensive bilateral lower lobe atelectasis/consolidation with air bronchograms. There is a small left pleural effusion and trace right pleural effusion. Liver: There is hepatic steatosis. No focal masses are visualized. There is trace perihepatic fluid. There is persistent pneumobilia Gallbladder: Surgically absent Spleen: The spleen is enlarged measuring 17 cm. Pancreas: There is infiltration of the peripancreatic fat most pronounced the level the pancreatic tail. The findings are consistent with acute pancreatitis. There is absence enhancement of the distal pancreatic tail consistent with pancreatic necrosis. There is fluid tracking into the left paracolic gutter and left perinephric space. Adrenal glands: Unremarkable. Kidneys: There is left perinephric fluid, likely secondary to pancreatitis. There is a 12 mm left renal hypodensity likely representing a cyst. Bowel: There are no transition zones indicate bowel obstruction. There is no acute diverticulitis. Peritoneum: There is low volume ascites. No free intraperitoneal air is visualized. Vasculature: The abdominal aorta is normal in course and caliber. Adenopathy: None. Pelvic viscera: The bladder, and pelvic viscera are unremarkable. Skeletal structures: There are few scattered sclerotic densities, likely representing bone islands. IMPRESSION: 1. CT findings indicative of acute pancreatitis with developing distal pancreatic tail necrosis 2. Increasing peripancreatic fluid with fluid tracking into the left paracolic gutter and perinephric space. Low volume ascites. 3. No evidence of bowel obstruction. No evidence of free air 4. Hepatic steatosis and pneumobilia 5. Splenomegaly 6. Interval development of a small left pleural effusion and trace right pleural effusion. 7. Interval development of bilateral lower lobe atelectasis/consolidation with air bronchograms Electronically signed by: Abdoulaye Zavala M.D. 03/25/2018 1:38 PM Dictated Date/Time: 03/25/2018 1:32 PM
[2018-03-25] MEDS ORDERED: PIPERACILL/TAZOBAC IV 3.375 GM in D5W 100ML IV SCH (16:00)
--- NOTE | 2018-03-25 18:50 | Progress Note ---
Progress Note Date of Service Mar 25, 2018. Progress Note Subjective: Patient's abdominal pain is controlled today. denies chest pain. denies shortness of breath. Patient denies problems with urination. Had bowel movement. Has periodically have febrile temperatures Physical Exam General; No acute distress Lungs: clear to auscultation bilaterally, no wheezing Heart: mild tachycardia Abdomen: soft, bowel sounds present, less tender Extremities: no edema Assessment and Plan ACUTE PANCREATITIS -History of recurrent pancreatitis secondary to hypertriglyceridemia; patient has history of recurrent pancreatitis and type V hyperlipoproteinemia and receives apheresis every 2 weeks at [facility] -on admission with elevated triglycerides, and lipase with CT abdomen /pelvis consistent with acute pancreatitis -patient was on insulin drip as recommended by gastroenterology service on to bring down the triglycerides. Insulin drip after triglycerides less than 500 -Oral medications for lipid management include atorvastatin, gemfibrozil, niacin , fish oil -advanced diet Tachycardia resolving, attributed to pancreatitis pain continue pain control medications Fever admission blood cultures no growth to date; however with high fevers; was initially given Zosyn after repeat blood culture drawn on 03/25/18 however discontinued by gastroenterology service as they have assessed that the distal pancreatic tail necrosis seen on repeat CT scan should be sterile and therefor no antibiotic needed as this time HYPOKALEMIA, HYPOMAGNESEMIA -hypokalemia resolved -patient give IV magnesium for hypomagnesemia DM TYPE II -Hgb A1c 8.0 09/2017 -On metformin and Jardiance at home; continue to hold -subcutaneous insulin as per protocol with fingerstick glucose DVT PROPHYLAXIS: SCD, ambulation
[2018-03-25] MEDS ORDERED: KETOROLAC TROMETHAMINE 30 MG/ML VIAL IV PRN (20:00)
[2018-03-25] MEDS: ATORVASTATIN 40 MG TAB PO SCH (21:31)
[2018-03-25] MEDS: GEMFIBROZIL 600 MG TAB PO SCH (21:31)
[2018-03-25] MEDS: NIASPAN 500 MG TABCR PO SCH (21:31)
[2018-03-25] MEDS: OMEGA-3 (PURIFIED FISH OIL) 1 GM CAP PO SCH (21:32)
[2018-03-26] MEDS: LACTATED RINGER'S 1000ML 1,000 ML IV SCH ×2 (02:04→15:25)
[2018-03-26 04:17] VITALS: BP 120/74; PULSE 89; TEMP 37; O2SAT 90
[2018-03-26 07:15] VITALS: BP 129/82; PULSE 102; TEMP 37; O2SAT 91
[2018-03-26] MEDS: PANTOprazole SOD 40 MG TAB PO SCH (08:15)
[2018-03-26] MEDS: OMEGA-3 (PURIFIED FISH OIL) 1 GM CAP PO SCH ×2 (08:16→20:01)
[2018-03-26] MEDS: SENNA 8.6 MG TAB PO SCH (08:16)
[2018-03-26] MEDS: GEMFIBROZIL 600 MG TAB PO SCH ×2 (08:16→20:01)
[2018-03-26] MEDS: INSULIN ASPART 100 UNITS/ML 3 ML PEN SC SCH ×4 (08:20→20:07)
[2018-03-26 11:40] VITALS: BP 122/78; PULSE 89; TEMP 37.2; O2SAT 95
--- NOTE | 2018-03-26 12:46 | GASTROENTEROLOGY PROGRESS NOTE ---
DATE: 03/26/2018 Gastroenterology progress note and cross coverage for [facility] Gastroenterology. SUBJECTIVE: I had the pleasure of seeing Jakob Wilhelm at his bedside today. He is sitting up comfortably resting. He denies any abdominal pain. He states that he has had no problems with p.o. intake. Nursing staff reports that he did have a single dose of Dilaudid last night with good control. He remains afebrile and denies any abdominal pain, fevers, chills, nausea, vomiting, hematemesis, melena or hematochezia at present. PHYSICAL EXAMINATION: VITAL SIGNS: Temp 37.2, pulse 89, respirations 12, blood pressure 122/78, pulse ox 95% on room air. GENERAL: He is awake, cooperative, in no acute distress. CHEST: Clear to auscultation bilaterally. CARDIOVASCULAR SYSTEM: Regular rate and rhythm. ABDOMEN: Soft, nontender, nondistended. Positive bowel sounds. EXTREMITIES: No clubbing, cyanosis, or edema. LABORATORY DATA: Laboratory studies from today include a white blood cell count of 11.44, hemoglobin 11.4, hematocrit 34.5, platelet count of 138. IMPRESSION: This is a 37-year-old male with a history of hypertriglyceridemia, admitted with recurrent pancreatitis and noted to have pancreatitis on CT imaging with pancreatic tail necrosis. PLAN: At the present time, I would continue the patient on his current medical regimen. I would continue supportive medical care. He will not be on any antibiotics at present as he is afebrile and the necrotic area should be sterile and contained. I will follow his clinical course and make further recommendations as needed. Once again, thanks for allowing me to participate in the care of this patient. If you have any further questions, please do not hesitate in contacting me.
[2018-03-26] MEDS ORDERED: NURSING VERBAL MED ORDER ONE (15:30)
[2018-03-26 15:46] VITALS: BP 122/75; PULSE 90; TEMP 37.5; O2SAT 92
[2018-03-26] MEDS: ACETAMINOPHEN 325 MG TAB PO PRN (16:53)
--- NOTE | 2018-03-26 18:56 | Progress Note ---
Progress Note Date of Service Mar 26, 2018. Progress Note Subjective: Patient's abdominal pain is controlled today. denies chest pain. denies shortness of breath. Patient denies problems with urination. Has been relatively afebrile today Physical Exam General; No acute distress Lungs: clear to auscultation bilaterally, no wheezing Heart: regular rate Abdomen: soft, bowel sounds present, no guarding Extremities: no edema Assessment and Plan ACUTE PANCREATITIS -History of recurrent pancreatitis secondary to hypertriglyceridemia; patient has history of recurrent pancreatitis and type V hyperlipoproteinemia and receives apheresis every 2 weeks at [facility] -on admission with elevated triglycerides, and lipase with CT abdomen /pelvis consistent with acute pancreatitis -patient was on insulin drip as recommended by gastroenterology service on to bring down the triglycerides. Insulin drip after triglycerides less than 500 -Oral medications for lipid management include atorvastatin, gemfibrozil, niacin , fish oil -tolerating diet Tachycardia resolved, attributed to pancreatitis pain continue pain control medications Fever -admission blood cultures no growth to date; however with high fevers; was initially given Zosyn after repeat blood culture drawn on 03/25/18 however discontinued by gastroenterology service as they have assessed that the distal pancreatic tail necrosis seen on repeat CT scan should be sterile and therefor no antibiotic needed as this time -the fevers appear to be resolving today DM TYPE II -Hgb A1c 8.0 09/2017 -On metformin and Jardiance at home; continue to hold -subcutaneous insulin as per protocol with fingerstick glucose DVT PROPHYLAXIS: SCD, ambulation Disposition: would continue to watch patient, pancreatic pain appears controlled. today has been afebrile. however also on NSAIDs and acetaminophen. will continue to monitor inpatient for now
[2018-03-26 19:17] VITALS: BP 112/68; PULSE 74; TEMP 37; O2SAT 92
[2018-03-26] MEDS: ATORVASTATIN 40 MG TAB PO SCH (20:01)
[2018-03-26] MEDS: NIASPAN 500 MG TABCR PO SCH (20:01)
[2018-03-26 23:29] VITALS: BP 112/71; PULSE 84; TEMP 36.8; O2SAT 90
[2018-03-27] MEDS: HYDROmorphone INJ 0.5 MG/0.5 ML SYR IV PRN (00:38)
[2018-03-27] MEDS: LACTATED RINGER'S 1000ML 1,000 ML IV SCH (04:07)
[2018-03-27 04:10] VITALS: BP 119/71; PULSE 87; TEMP 37; O2SAT 92
[2018-03-27 07:11] VITALS: BP 122/76; PULSE 91; TEMP 37.1; O2SAT 91
[2018-03-27 07:28] LABS: HEMATOCRIT 33.2 % (42-52); HEMOGLOBIN 10.8 g/dL (14.0-18.0); MEAN CELL VOLUME 76.7 fL (80-100); MEAN CORPUSCULAR HEMOGLOBIN 24.9 pg (25-34); MEAN CORPUSCULAR HGB CONC 32.5 g/dl (32-36); MEAN PLATELET VOLUME 9.7 fL (7.4-10.4); PLATELET COUNT 218 K/uL (130-400); RED CELL DISTRIBUTION WIDTH CV 15.8 % (11.5-14.5); RED CELL DISTRIBUTION WIDTH SD 44.3 fL (36.4-46.3)
[2018-03-27 07:37] LABS: ALBUMIN 2.5 gm/dl (3.4-5.0); CALCIUM 8.6 mg/dl (8.5-10.1); CREATININE 0.76 mg/dl (0.60-1.40); POTASSIUM 3.7 mmol/L (3.5-5.1)
[2018-03-27] MEDS: GEMFIBROZIL 600 MG TAB PO SCH (07:42)
[2018-03-27] MEDS: SENNA 8.6 MG TAB PO SCH (07:42)
[2018-03-27] MEDS: OMEGA-3 (PURIFIED FISH OIL) 1 GM CAP PO SCH (07:42)
[2018-03-27] MEDS: PANTOprazole SOD 40 MG TAB PO SCH (07:42)
[2018-03-27 07:49] LABS: BASO % 0.2 %; BASO ABS # 0.02 K/uL (0-0.2); EOS % 1.4 %; EOS ABS # 0.12 K/uL (0-0.5); IG# 0.03 K/uL (0.00-0.02); LYMPH % 13.7 %; LYMPH ABS # 1.15 K/uL (1.2-3.4); NEUT % 78.3 %; NEUT ABS # 6.58 K/uL (1.4-6.5)
[2018-03-27] MEDS: INSULIN ASPART 100 UNITS/ML 3 ML PEN SC SCH ×2 (07:56→12:08)
--- NOTE | 2018-03-27 13:09 | Progress Note ---
Internal Med Progress Note Date of Service: Mar 27, 2018. Provider Documentation: Subjective: Patient's abdominal pain is controlled today. denies chest pain. denies shortness of breath. Patient denies problems with urination. Has been afebrile today Physical Exam General; No acute distress Lungs: clear to auscultation bilaterally, no wheezing Heart: regular rate Abdomen: soft, bowel sounds present, no guarding, nontender on palpation Extremities: no edema Neuro: awake, ambulatory ASSESSMENT & PLAN: ACUTE PANCREATITIS -History of recurrent pancreatitis secondary to hypertriglyceridemia; patient has history of recurrent pancreatitis and type V hyperlipoproteinemia and receives apheresis every 2 weeks at [facility] -on admission with elevated triglycerides, and lipase with CT abdomen /pelvis consistent with acute pancreatitis -patient was on insulin drip as recommended by gastroenterology service on to bring down the triglycerides. Insulin drip after triglycerides less than 500 -Oral medications for lipid management include atorvastatin, gemfibrozil, niacin , fish oil -tolerating diet Tachycardia resolved, attributed to pancreatitis pain continue pain control medications Fever -admission blood cultures no growth to date; however with high fevers; was initially given Zosyn after repeat blood culture drawn on 03/25/18 however discontinued by gastroenterology service as they have assessed that the distal pancreatic tail necrosis seen on repeat CT scan should be sterile and therefor no antibiotic needed as this time -the fevers appear to be resolved DM TYPE II -Hgb A1c 8.0 09/2017 -On metformin and Jardiance at home; continue to hold -subcutaneous insulin as per protocol with fingerstick glucose Discharge Instructions Patient should follow up with following appointments 03/31/2018 2:00 PM Mena Esquivel MD Internal Medicine [facility] 04/06/2018 10:00 AM Apheresis Provider Ancillary Laboratory Medicine [facility] Vital Signs: Date Time Temp Pulse Resp B/P (MAP) Pulse Ox O2 Delivery O2 Flow Rate FiO2 03/27/18 08:00 Room Air 03/27/18 07:11 37.1 91 18 122/76 (91) 91 Room Air 03/27/18 04:10 37.0 87 20 119/71 (87) 92 Room Air 03/27/18 00:00 Room Air 03/26/18 23:29 36.8 84 20 112/71 (85) 90 Room Air 03/26/18 19:17 37.0 74 20 112/68 (83) 92 Room Air 03/26/18 15:46 37.5 90 18 122/75 (91) 92 Room Air Lab Results: Results Past 24 Hours Test 03/26/18 16:37 03/26/18 20:01 03/27/18 06:12 03/27/18 07:23 Range/Units Bedside Glucose 121 157 168 70-99 mg/dl White Blood Count 8.40 4.8-10.8 K/uL Red Blood Count 4.33 4.7-6.1 M/uL Hemoglobin 10.8 14.0-18.0 g/dL Hematocrit 33.2 42-52 % Mean Corpuscular Volume 76.7 80-100 fL Mean Corpuscular Hemoglobin 24.9 25-34 pg Mean Corpuscular Hemoglobin Concent 32.5 32-36 g/dl Platelet Count 218 130-400 K/uL Mean Platelet Volume 9.7 7.4-10.4 fL Neutrophils (%) (Auto) 78.3 % Lymphocytes (%) (Auto) 13.7 % Monocytes (%) (Auto) 6.0 % Eosinophils (%) (Auto) 1.4 % Basophils (%) (Auto) 0.2 % Neutrophils # (Auto) 6.58 1.4-6.5 K/uL Lymphocytes # (Auto) 1.15 1.2-3.4 K/uL Monocytes # (Auto) 0.50 0.11-0.59 K/uL Eosinophils # (Auto) 0.12 0-0.5 K/uL Basophils # (Auto) 0.02 0-0.2 K/uL RDW Standard Deviation 44.3 36.4-46.3 fL RDW Coefficient of Variation 15.8 11.5-14.5 % Immature Granulocyte % (Auto) 0.4 % Immature Granulocyte # (Auto) 0.03 0.00-0.02 K/uL Red Blood Cell Morphology Unremarkable Sodium Level 136 136-145 mmol/L Potassium Level 3.7 3.5-5.1 mmol/L Chloride Level 103 98-107 mmol/L Carbon Dioxide Level 27 21-32 mmol/L Anion Gap 6.0 3-11 mmol/L Blood Urea Nitrogen 12 7-18 mg/dl Creatinine 0.76 0.60-1.40 mg/dl Est Creatinine Clear Calc Drug Dose 169.1 ml/min Estimated GFR () 135.1 Estimated GFR (Non- 116.6 BUN/Creatinine Ratio 15.4 10-20 Random Glucose 133 70-99 mg/dl Calcium Level 8.6 8.5-10.1 mg/dl Magnesium Level 2.1 1.8-2.4 mg/dl Total Bilirubin 0.4 0.2-1 mg/dl Aspartate Amino Transf (AST/SGOT) 12 15-37 U/L Alanine Aminotransferase (ALT/SGPT) 16 12-78 U/L Alkaline Phosphatase 46 45-117 U/L Total Protein 7.0 6.4-8.2 gm/dl Albumin 2.5 3.4-5.0 gm/dl Globulin 4.5 2.5-4.0 gm/dl Albumin/Globulin Ratio 0.6 0.9-2 Test 03/27/18 11:48 Range/Units Bedside Glucose 158 70-99 mg/dl
--- NOTE | 2018-03-27 15:09 | Discharge Instructions ---
Discharge Instructions Date of Service Mar 27, 2018. Admission Reason for Admission: Pancreatitis Discharge Discharge Diagnosis / Problem: acute pancreatitis; hypertriglyceridemia; Diabetes Type II Discharge Goals Goal(s): Improve disease control Activity Recommendations Activity Limitations: per Instructions/Follow-up section . Instructions / Follow-Up Instructions / Follow-Up ACUTE PANCREATITIS -History of recurrent pancreatitis secondary to hypertriglyceridemia; patient has history of recurrent pancreatitis and type V hyperlipoproteinemia and receives apheresis every [address] [facility] -on admission with elevated triglycerides, and lipase with CT abdomen /pelvis consistent with acute pancreatitis -patient was on insulin drip as recommended by gastroenterology service on to bring down the triglycerides. Insulin drip after triglycerides less than 500 -Oral medications for lipid management include atorvastatin, gemfibrozil, niacin , fish oil -tolerating diet Tachycardia resolved, attributed to pancreatitis pain continue pain control medications Fever -admission blood cultures no growth to date; however with high fevers; was initially given Zosyn after repeat blood culture drawn on 03/25/18 however discontinued by gastroenterology service as they have assessed that the distal pancreatic tail necrosis seen on repeat CT scan should be sterile and therefor no antibiotic needed as this time -the fevers appear to be resolved DM TYPE II -Hgb A1c 8.0 09/2017 -On metformin and Jardiance at home; continue to hold -subcutaneous insulin as per protocol with fingerstick glucose Discharge Instructions Patient should follow up with following appointments 03/31/2018 2:00 PM Mena Esquivel MD Internal Medicine [facility] 04/06/2018 10:00 AM Apheresis Provider Ancillary Laboratory Medicine [facility] Current Hospital Diet Patient's current hospital diet: Diabetes Type 2 Diet, Low Fat Diet Discharge Diet Recommended Diet: Diabetes Type 2 Diet, Low Fat Diet Pending Studies Studies pending at discharge: no Laboratory Results 03/27/18 06:12 Red Blood Count 4.33, Mean Corpuscular Volume 76.7, Mean Corpuscular Hemoglobin 24.9, Mean Corpuscular Hemoglobin Concent 32.5, Mean Platelet Volume 9.7, Neutrophils (%) (Auto) 78.3, Lymphocytes (%) (Auto) 13.7, Monocytes (%) (Auto) 6.0, Eosinophils (%) (Auto) 1.4, Basophils (%) (Auto) 0.2, Neutrophils # (Auto) 6.58, Lymphocytes # (Auto) 1.15, Monocytes # (Auto) 0.50, Eosinophils # (Auto) 0.12, Basophils # (Auto) 0.02 03/27/18 06:12 Test 03/23/18 04:54 03/23/18 05:30 03/23/18 06:50 03/24/18 00:14 Nucleated RBC Absolute Count (auto) 0.23 K/uL (0-0) Nucleated Red Blood Cells % 1.7 % Urine Color YELLOW Urine Appearance CLEAR (CLEAR) Urine pH 5.5 (4.5-7.5) Urine Specific [place] 1.036 (1.000-1.030) Urine Protein 3+ (NEG) Urine Glucose (UA) 3+ (NEG) Urine Ketones 2+ (NEG) Urine Occult Blood TRACE (NEG) Urine Nitrite NEG (NEG) Urine Bilirubin NEG (NEG) Urine Urobilinogen NEG (NEG) Urine Leukocyte Esterase NEG (NEG) Urine WBC (Auto) 1-5 /hpf (0-5) Urine RBC (Auto) 0-4 /hpf (0-4) Urine Hyaline Casts (Auto) 1-5 /lpf (0-5) Urine Epithelial Cells (Auto) 10-20 /lpf (0-5) Urine Bacteria (Auto) NEG (NEG) Direct Bilirubin < 0.1 mg/dl (0-0.2) Amylase Level 640 U/L (25-115) Estimated Average Glucose 137 mg/dl Hemoglobin A1c 6.4 % (4.5-5.6) Test 03/25/18 07:45 03/27/18 06:12 03/27/18 11:48 Triglycerides Level 307 mg/dl (0-150) Lipase 198 U/L (73-393) White Blood Count 8.40 K/uL (4.8-10.8) Red Blood Count 4.33 M/uL (4.7-6.1) Hemoglobin 10.8 g/dL (14.0-18.0) Hematocrit 33.2 % (42-52) Mean Corpuscular Volume 76.7 fL (80-100) Mean Corpuscular Hemoglobin 24.9 pg (25-34) Mean Corpuscular Hemoglobin Concent 32.5 g/dl (32-36) Platelet Count 218 K/uL (130-400) Mean Platelet Volume 9.7 fL (7.4-10.4) Neutrophils (%) (Auto) 78.3 % Lymphocytes (%) (Auto) 13.7 % Monocytes (%) (Auto) 6.0 % Eosinophils (%) (Auto) 1.4 % Basophils (%) (Auto) 0.2 % Neutrophils # (Auto) 6.58 K/uL (1.4-6.5) Lymphocytes # (Auto) 1.15 K/uL (1.2-3.4) Monocytes # (Auto) 0.50 K/uL (0.11-0.59) Eosinophils # (Auto) 0.12 K/uL (0-0.5) Basophils # (Auto) 0.02 K/uL (0-0.2) RDW Standard Deviation 44.3 fL (36.4-46.3) RDW Coefficient of Variation 15.8 % (11.5-14.5) Immature Granulocyte % (Auto) 0.4 % Immature Granulocyte # (Auto) 0.03 K/uL (0.00-0.02) Red Blood Cell Morphology Unremarkable Anion Gap 6.0 mmol/L (3-11) Est Creatinine Clear Calc Drug Dose 169.1 ml/min Estimated GFR () 135.1 Estimated GFR (Non- 116.6 BUN/Creatinine Ratio 15.4 (10-20) Calcium Level 8.6 mg/dl (8.5-10.1) Magnesium Level 2.1 mg/dl (1.8-2.4) Total Bilirubin 0.4 mg/dl (0.2-1) Aspartate Amino Transf (AST/SGOT) 12 U/L (15-37) Alanine Aminotransferase (ALT/SGPT) 16 U/L (12-78) Alkaline Phosphatase 46 U/L (45-117) Total Protein 7.0 gm/dl (6.4-8.2) Albumin 2.5 gm/dl (3.4-5.0) Globulin 4.5 gm/dl (2.5-4.0) Albumin/Globulin Ratio 0.6 (0.9-2) Bedside Glucose 158 mg/dl (70-99) Date/Time Source Procedure Growth Status 03/25/18 07:57 Blood Blood Culture - Preliminary NO GROWTH TO DATE. Resulted 03/23/18 19:12 Urine , Clean Catch Urine Culture - Final NO GROWTH - LESS THAN 1,000 COLONIES/ML Complete Hemoglobin A1c Test 03/24/18 00:14 Range/Units Estimated Average Glucose 137 mg/dl Hemoglobin A1c 6.4 H 4.5-5.6 % Lipid Panel Test 03/25/18 07:45 Range/Units Triglycerides Level 307 H 0-150 mg/dl Medical Emergencies . Who to Call and When: Medical Emergencies: If at any time you feel your situation is an emergency, please call 911 immediately. . Non-Emergent Contact Non-Emergency issues call your: Primary Care Provider Call Non-Emergent contact if: you have any medication questions . . "Provider Documentation" section prepared by Dilip Casillas. .
--- NOTE | 2018-03-27 15:11 | Discharge Summary ---
Discharge Summary Date of Service Mar 27, 2018. Discharge Summary Admission Date: Mar 23, 2018 at 09:30 Discharge Date: Mar 27, 2018 Discharge Disposition: Home Principal Diagnosis: ACUTE PANCREATITIS -History of recurrent pancreatitis secondary to hypertriglyceridemia - distal pancreatic tail necrosis -fever Secondary Diagnoses/Problems: diabetes type 2 Medication Reconciliation Continued Medications: Acetaminophen (Tylenol) 325 Mg Tab 650 MG PO Q6 PRN for Pain, TAB Aspirin (Aspirin) 325 Mg Ectab 325 MG PO HS Atorvastatin (Lipitor) 40 Mg Tab 40 MG PO QPM Empagliflozin (Jardiance) 10 Mg Tab 10 MG PO DAILY Gemfibrozil (Lopid) 600 Mg Tab 600 MG PO BID, TAB Metformin Hcl (Glucophage) 1,000 Mg Tab 1000 MG PO BID Niacin (Niacin ER) 500 Mg Tabcr 500 MG PO QPM TAKE WITH NIACIN ER 1,000MG TO EQUAL 1,500MG DOSE Niacin (Antihyperlipidemic) (Niacin Er) 1,000 Mg Tab 1000 MG PO QPM TAKE WITH NIACIN ER 500MG TO EQUAL 1,500MG DOSE [place] 3 Fatty Acids-Evening Pr (Retaine Om3) 1 Cap Cap 2 CAP PO BID Omeprazole (Prilosec) 20 Mg Capcr 20 MG PO DAILY, CAP Admission Information HPI (per Admitting provider): 37-year-old male who presents the ED with abdominal pain. Patient has history of recurrent pancreatitis secondary to hypertriglyceridemia. Patient currently receives apheresis every 2 weeks at [facility]. Patient reports his abdominal pain began last night. He reports the pain initially began in the lower part of his abdomen and radiate up into the epigastric area. He did have associated nausea and vomiting. He denies any hematemesis or coffee-ground emesis. He reports fever and chills. His temperature at home was 100.8. No chest pain or shortness of breath. He denies lightheadedness, dizziness, diaphoresis, syncopal events. No diarrhea, bright red bleeding per rectum, or dark tarry stools. He denies any urinary symptoms. In the ED, patient's lipase is 5783, triglycerides 2020, WBC 13 K. Patient is currently hemodynamically stable. He received IVF, IV Zofran, IV morphine. Physical Exam (per Admitting): General Appearance: WD/WN, no apparent distress Head: normocephalic, atraumatic Eyes: normal inspection, EOMI, sclerae normal ENT: hearing grossly normal, + pertinent finding (Mucous members moist) Neck: supple, no JVD, trachea midline Respiratory/Chest: lungs clear, normal breath sounds, no respiratory distress Cardiovascular: regular rate, rhythm, no edema, normal peripheral pulses Abdomen/GI: normal bowel sounds, soft, no organomegaly, + tenderness ( Epigastric, left upper quadrant, left lower quadrant) Extremities/Musculoskelatal: normal inspection, no calf tenderness, normal capillary refill Neurologic/Psych: no motor/sensory deficits, alert, normal mood/affect, oriented x 3 Skin: normal color, warm/dry Hospital Course ACUTE PANCREATITIS -History of recurrent pancreatitis secondary to hypertriglyceridemia; patient has history of recurrent pancreatitis and type V hyperlipoproteinemia and receives apheresis every 2 weeks at [facility] -on admission with elevated triglycerides, and lipase with CT abdomen /pelvis consistent with acute pancreatitis -patient was on insulin drip as recommended by gastroenterology service on to bring down the triglycerides. Insulin drip after triglycerides less than 500 -Oral medications for lipid management include atorvastatin, gemfibrozil, niacin , fish oil -tolerating diet Tachycardia resolved, attributed to pancreatitis pain continue pain control medications Fever -admission blood cultures no growth to date; however with high fevers; was initially given Zosyn after repeat blood culture drawn on 03/25/18 however discontinued by gastroenterology service as they have assessed that the distal pancreatic tail necrosis seen on repeat CT scan should be sterile and therefor no antibiotic needed as this time -the fevers appear to be resolved DM TYPE II -Hgb A1c 8.0 09/2017 -On metformin and Jardiance at home; continue to hold -subcutaneous insulin as per protocol with fingerstick glucose Discharge Instructions Patient should follow up with following appointments 03/31/2018 2:00 PM Mena Esquivel MD Internal Medicine [facility] 04/06/2018 10:00 AM Apheresis Provider Ancillary Laboratory Medicine [facility] Total time spent on discharge = 40 minutes This includes examination of the patient, discharge planning, medication reconciliation, and communication with other providers. Discharge Instructions see above
[2018-03-27 15:27] VITALS: BP 117/71; PULSE 91; TEMP 37.1; O2SAT 93
[2018-03-27 15:30] VITALS: BP 117/71; PULSE 91; TEMP 37.1; O2SAT 93
== END 2018-03-27 16:30 | disposition home or self-care (01) | DRG 642 ==
LOC: C.EDB 05:27 → EDBD 05:27 → C.MED 09:30 → ENRESERV 09:52 → C.MED 20:35
PROVIDERS: ADMIT Hospitalist; ATTEND Hospitalist
DX: E78.3 Hyperchylomicronemia (principal); K85.91 Acute pancreatitis with uninfected necrosis, unspecified; K86.1 Other chronic pancreatitis; E78.1 Pure hyperglyceridemia; R10.9 Unspecified abdominal pain; F17.200 Nicotine dependence, unspecified, uncomplicated; Z79.82 Long term (current) use of aspirin; E11.9 Type 2 diabetes mellitus without complications; Z83.3 Family history of diabetes mellitus; E87.6 Hypokalemia; E83.42 Hypomagnesemia

== ENCOUNTER 2018-09-16 20:56 | Inpatient (IN) ==
[2018-09-16] MEDS ORDERED: SODIUM CHLORIDE 0.9% 1000ML 1,000 ML IV ONE (21:06)
[2018-09-16] MEDS ORDERED: ONDANSETRON INJ 2 MG/ML 2 ML VIAL IV STA (21:06)
[2018-09-16] MEDS ORDERED: HYDROmorphone INJ 1 MG/ML SYRINGE IV STA ×2 (21:06→23:06)
[2018-09-16 21:32] LABS: Basophils # (auto) 0.03 K/uL (0-0.2); Basophils % (auto) 0.2 %; Eosinophils # (auto) 0.12 K/uL (0-0.5); Eosinophils % (auto) 0.9 %; Hematocrit (blood only) 41.3 % (42-52); Immature Granulocytes # (auto) 0.05 K/uL (0.00-0.02); Immature Granulocytes % (auto) 0.4 %; Lymphocytes # (auto) 1.71 K/uL (1.2-3.4); Lymphocytes % (auto) 13.2 %; Mean Corpuscular Hgb Conc 36.3 g/dL (32-36); Mean Corpuscular Volume 78.4 fL (80-100); Mean Platelet Volume 9.6 fL (7.4-10.4); Monocytes # (auto) 1.06 K/uL (0.11-0.59); Monocytes % (auto) 8.2 %; Neutrophils # (auto) 9.95 K/uL (1.4-6.5); Neutrophils % (auto) 77.1 %; Platelet Count 237 K/uL (130-400); RDW Coefficient of Variation 16.4 % (11.5-14.5); RDW Standard Deviation 45.9 fL (36.4-46.3); Red Blood Count 5.27 M/uL (4.7-6.1); White Blood Count 12.92 K/uL (4.8-10.8)
[2018-09-16 22:01] LABS: Appearance Urine Clear (Clear); Bacteria Urine Automated Negative (Negative); Bilirubin Urine Negative (Negative); Color Urine Yellow; Glucose Urine UA 3+ (Negative); Ketones Urine 1+ (Negative); Leukocyte Esterase Urine Negative (Negative); Nitrite Urine Negative (Negative); Urobilinogen Urine Negative (Negative); pH Urine 8.5 (4.5-7.5)
[2018-09-16 22:03] LABS: Protein Urine 2+ (Negative)
[2018-09-16 22:14] LABS: Creatinine Clr Calc Pharmacy 123.4 ml/min; Est GFR (African American) 108.3; Est GFR (Non-African American) 93.5
[2018-09-16 22:16] LABS: BUN Creatinine Ratio 12.3 (10-20); Bilirubin,Total 0.6 mg/dl (0.2-1); Calcium 10.1 mg/dl (8.5-10.1); Total Protein 7.9 gm/dl (6.4-8.2)
[2018-09-16] MEDS ORDERED: SODIUM CHLORIDE 0.9% 1000ML 1,000 ML IV SCH (22:30)
--- NOTE | 2018-09-16 23:17 | Emergency Department Note ---
Entered by Molly Santos acting as a scribe for History of Present Illness General Chief complaint: Abdominal Pain Stated complaint: ABDOMINAL PAIN, VOMITING Time Seen by Provider: 09/16/18 21:03 Source: patient Mode of arrival: ambulatory Limitations: no limitations History of Present Illness Onset (ago): day(s) 1 Location: abdomen Radiation: non-radiation Pain Consistency: + constant Maximum Pain Intensity: 5 Current Pain Intensity: 5 Relieved By: + none Associated symptoms: + nausea/vomiting; no chest pain Treatments prior to arrival: none The patient is a 37 year old male who presents to the Emergency Room with complaints of persistent abdominal pain since last night. He rates his pain as a 5/10 in severity. He states the pain started when he was "just sitting on the couch watching TV". He has been nauseous and vomiting for the past day as well. He has undergone a cholecystectomy previously and states he used to follow with Dr. Crane for a history of pancreatitis secondary to hypertriglyceridemia. He denies any recent chest pain. Home Medications Home Medications Medication Instructions Recorded Confirmed Type acetaminophen [Tylenol Extra 1,000 mg PO DIRECTED PRN 09/16/18 09/16/18 History Strength] aspirin 325 mg PO HS 09/16/18 09/16/18 History atorvastatin 40 mg PO HS 09/16/18 09/16/18 History diclofenac sodium 50 mg PO TID 09/16/18 09/16/18 History diphenhydramine-acetaminophen 2 tab PO HS PRN 09/16/18 09/16/18 History [Tylenol PM Extra Strength] empagliflozin [Jardiance] 10 mg PO QAM 09/16/18 09/16/18 History gabapentin 300 mg PO TID 09/16/18 09/16/18 History gemfibrozil 600 mg PO BID 09/16/18 09/16/18 History losartan 25 mg PO QPM 09/16/18 09/16/18 History metformin 1,000 mg PO BID 09/16/18 09/16/18 History niacin 1,000 mg PO HS 09/16/18 09/16/18 History niacin 500 mg PO HS 09/16/18 09/16/18 History omega 1-vnv-ihj-fish oil 2,000 mg PO BID 09/16/18 09/16/18 History omeprazole 20 mg PO DAILY 09/16/18 09/16/18 History Allergies Allergy/AdvReac Type Severity Reaction Status Date / Time No Known Allergies Allergy Verified 09/16/18 22:28 Past Med/Surg History Medical History Pancreatitis (Acute) Surgical History History of cholecystectomy Social History Feels Safe at Home: Yes Smoking Status: Former smoker Review of Systems See HPI for pertinent positives & negatives. and A total of 10 systems reviewed and were otherwise negative Physical Exam Vital Signs Vital Signs - 24 hr 09/16/18 20:58 09/16/18 21:18 09/16/18 23:03 Temperature 37.0 C Temperature Source Oral Sepsis Recent Fever Within 48 Hours No Sepsis Action Taken by Nursing No Action Required Pulse Rate [Finger] 88 Respiratory Rate 20 18 Respiratory Effort / Characteristics Non-Labored Spontaneous Non-Labored Spontaneous Respiratory Depth Normal Normal Blood Pressure 163/97 H Blood Pressure [Right Arm] 147/87 H Blood Pressure Mean 119 Blood Pressure Mean [Right Arm] 107 Pulse Oximetry 97 96 Oxygen Delivery Method Room Air Room Air GENERAL: He is oriented to person, place, and time. He appears well-developed and well-nourished. He does not appear distressed. HENT: Exam performed. - Head: Normocephalic and atraumatic. - Right Ear: External ear normal. No mastoid tenderness. - Left Ear: External ear normal. No mastoid tenderness. - Mouth/Throat: The oropharynx is clear and moist. No trismus in the jaw. No dental abscesses or uvula swelling. No oropharyngeal exudate or tonsillar abscesses. EYES: Conjunctivae and EOM are normal. Pupils are equal, round, and reactive to light. Right eye exhibits no discharge. Left eye exhibits no discharge. No scleral icterus. NECK: Normal range of motion. Neck supple. No JVD present. No spinous process tenderness present. No carotid bruit present. No rigidity. No tracheal deviation and normal range of motion present. No Brudzinski's sign and no Kernig 's sign noted. CV: Normal rate, regular rhythm, normal heart sounds and intact distal pulses. There is no peripheral edema. Palpable radial pulses bue. PULM/CHEST: Effort normal and breath sounds normal. No respiratory distress. No stridor. He has no wheezes. He has no rales. - Chest Wall: He exhibits no tenderness. ABD: The abdomen is soft. Bowel sounds are normal. He has no distension. No mass is present. Pain on palpation in epigastric area. There is no rebound, no guarding, no Upton's sign and no tenderness at McBurney's point. Rovsig negative. MUSC/SKEL: Normal range of motion. There is no peripheral edema, tenderness or deformity. LYMPH: No cervical adenopathy. NEURO: He is alert and oriented to person, place, and time. He has normal strength. No cranial nerve deficit or sensory deficit. Coordination and gait normal. GCS eye subscore is 4. GCS verbal subscore is 5. GCS motor subscore is 6. Cerebellar tests wnl. SKIN: Skin is warm and dry. He is not diaphoretic. PSYCH: He has a normal mood and affect. Behavior is normal. Judgment and thought content normal. Course 210: Past medical records reviewed. The patient was evaluated in room C12B, and a complete history and physical examination were performed. 2227: Vital signs stable. Labs show a lipase of 19,014, the patient will be admitted for pancreatitis. [facility] The patient will be further evaluated. Consultations Consultation #1: I discussed the patients case with Dr. Nolan [facility]. The patient will be further evaluated. Time: 22:27 Administered Medications Sodium Chloride (Nss 1000ml) 1,000 mls @ 125 mls/hr IV .Q8H ROZINA Stop: 10/16/18 22:29 Last Admin: 09/16/18 22:35 Dose: 125 mls/hr Discontinued Medications Hydromorphone HCl (Dilaudid) 1 mg IV NOW STA Stop: 09/16/18 21:07 Last Admin: 09/16/18 21:24 Dose: 1 mg Hydromorphone HCl (Dilaudid) 1 mg IV NOW STA Stop: 09/16/18 23:07 Last Admin: 09/16/18 23:08 Dose: 1 mg Sodium Chloride (Nss 1000ml) 1,000 mls @ 999 mls/hr IV .Q1H1M ONE Stop: 09/16/18 22:06 Last Infusion: 09/16/18 22:35 Dose: 0 mls/hr Admin: 09/16/18 21:24 Dose: 999 mls/hr Ondansetron HCl (Zofran) 4 mg IV NOW STA Stop: 09/16/18 21:07 Last Admin: 09/16/18 21:24 Dose: 4 mg Medical Decision Making Medical Records Attestation: I reviewed the patient's medical records. Home Medications Current Medication List: was personally reviewed by me Laboratory Data Attestation: I reviewed the patient's lab results. Result diagrams: 09/16/18 21:19 09/16/18 21: Lab Results 09/16/18 09/16/18 09/16/18 Range/Units 21: 21: 21:25 WBC 12.92 H (4.8-10.8) K/uL RBC 5.27 (4.7-6.1) M/uL Hgb 15.0 (14.0-18.0) g/dL Hct 41.3 L (42-52) % MCV 78.4 L (80-100) fL MCH 28.5 (25-34) pg MCHC 36.3 H (32-36) g/dL RDW Std Deviation 45.9 (36.4-46.3) fL RDW Coeff of Aiyana 16.4 H (11.5-14.5) % Plt Count 237 (130-400) K/uL MPV 9.6 (7.4-10.4) fL Immature Gran % (Auto) 0.4 % Neut % (Auto) 77.1 % Lymph % (Auto) 13.2 % [place] % (Auto) 8.2 % Eos % (Auto) 0.9 % Baso % (Auto) 0.2 % Immature Gran # (Auto) 0.05 H (0.00-0.02) K/uL Neut # (Auto) 9.95 H (1.4-6.5) K/uL Lymph # (Auto) 1.71 (1.2-3.4) K/uL [place] # (Auto) 1.06 H (0.11-0.59) K/uL Eos # (Auto) 0.12 (0-0.5) K/uL Baso # (Auto) 0.03 (0-0.2) K/uL Sodium 141 (136-145) mmol/L Potassium (3.5-5.1) mmol/L Chloride 104 (98-107) mmol/L Carbon Dioxide 26 (21-32) mmol/L Anion Gap 10.0 (3-11) BUN 13 (7-18) mg/dl Creatinine 1.02 (0.6-1.4) mg/dl Est Cr Clr Drug Dosing 123.4 ml/min Est GFR ( Amer) 108.3 Est GFR (Non-Af Amer) 93.5 BUN/Creatinine Ratio 12.3 (10-20) Glucose 182 H (70-99) mg/dl Calcium 10.1 (8.5-10.1) mg/dl Total Bilirubin 0.6 (0.2-1) mg/dl Direct Bilirubin (0-0.2) mg/dl AST (15-37) U/L ALT 39 (12-78) U/L Alkaline Phosphatase 73 (45-117) U/L Total Protein 7.9 (6.4-8.2) gm/dl Albumin 4.0 (3.4-5.0) gm/dl Lipase 71217 H (73-393) U/L Urine Color Yellow Urine Appearance Clear (Clear) Urine pH 8.5 H (4.5-7.5) Ur Specific [place] 1.030 (1.000-1.030) Urine Protein 2+ H (Negative) Urine Glucose (UA) 3+ H (Negative) Urine Ketones 1+ H (Negative) Urine Blood Negative (Negative) Urine Nitrite Negative (Negative) Urine Bilirubin Negative (Negative) Urine Urobilinogen Negative (Negative) Ur Leukocyte Esterase Negative (Negative) Urine WBC (Auto) 1-5 (0-5) /hpf Urine RBC (Auto) 0-4 (0-4) /hpf U Hyaline Cast (Auto) 1-5 (0-5) /lpf U Epithel Cells (Auto) 10-20 H (0-5) /lpf Urine Bacteria (Auto) Negative (Negative) ECG Data Attestation: I personally reviewed and interpreted this ECG as follows: Indication: abdominal pain Rate (beats per minute): 92 Rhythm: sinus rhythm Findings: + other (OR, QRS and QTC are within normal limits); no ST depression and no ST elevation Blood Pressure Blood Pressure Findings: Elevated blood pressure Blood Pressure Disposition: further management by hospitalist CAMI Narrative Vital signs stable. Labs show a lipase of 19,014, the patient will be admitted for pancreatitis. I discussed the patients case with Dr. Nolan, [facility] Hospitalist. The patient will be further evaluated. Impression & Plan Pancreatitis Discharge Plan Visit Data Chief Complaint: Abdominal Pain Stated Complaint: ABDOMINAL PAIN, VOMITING ED Provider: Mahendra Chavarria Discharge Problem: Pancreatitis Forms Stand Alone Forms: Call Back Authorization, My [facility] Prescriptions Prescriptions: No Action atorvastatin 40 mg Tablet 40 mg PO HS RF: 0 niacin 1,000 mg Tablet Extended Release 24 Hr 1,000 mg PO HS RF: 0 aspirin 325 mg Tablet 325 mg PO HS RF: 0 acetaminophen [Tylenol Extra Strength] 500 mg Tablet 1,000 mg PO DIRECTED PRN (Reason: Fever Or Pain) RF: 0 gemfibrozil 600 mg Tablet 600 mg PO BID RF: 0 metformin 1,000 mg Tablet 1,000 mg PO BID RF: 0 losartan 25 mg Tablet 25 mg PO QPM RF: 0 gabapentin 300 mg Capsule 300 mg PO TID RF: 0 niacin 500 mg Capsule, Extended Release 500 mg PO HS RF: 0 diclofenac sodium 50 mg Tablet,Delayed Release (Dr/Ec) 50 mg PO TID RF: 0 diphenhydramine-acetaminophen [Tylenol PM Extra Strength] 25-500 mg Tablet 2 tab PO HS PRN (Reason: PAIN/SLEEP) RF: 0 omeprazole 20 mg Tablet,Delayed Release (Dr/Ec) 20 mg PO DAILY RF: 0 omega 7-rwy-mld-fish oil 1,000 mg (120 mg-180 mg) Capsule 2,000 mg PO BID RF: 0 empagliflozin [Jardiance] 10 mg Tablet 10 mg PO QAM RF: 0 The scribe's documentation has been prepared under my direction and personally reviewed by me in its entirety. I confirm that the note above accurately reflects all work, treatment, procedures, and medical decision making performed by me.
--- NOTE | 2018-09-16 23:43 | History & Physical Report ---
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 Lovenox subcu Full code History of Present Illness Chief Complaint: Abdominal pain Primary Care Provider: Kobi Beck DO History obtained from patient and records. 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 Recent confinement February 2018 for recurrent pancreatitis. One day history of achy upper abdominal pain with nausea and emesis. No chest pain, no SOB. Denies recent fatty food/ETOH intake. Last outpatient serum triglyceride level for this month was 4000. Apheresis scheduled at [facility] outpatient next week. Medical History as above Surgical History : Cholecystectomy, choledochal cyst excision, partial Whipple with bile duct reconstruction, tonsillectomy adenoidectomy Family History : Diabetes, breast cancer, colon cancer Personal/Social history : Past tobacco abuse, no recent EtOH intake, [employer] employee Allergies Allergy/AdvReac Type Severity Reaction Status Date / Time No Known Allergies Allergy Verified 09/16/18 22:28 Home Medications Home Medications Medication Instructions Recorded Confirmed Type acetaminophen [Tylenol Extra 1,000 mg PO DIRECTED PRN 09/16/18 09/16/18 History Strength] aspirin 325 mg PO HS 09/16/18 09/16/18 History atorvastatin 40 mg PO HS 09/16/18 09/16/18 History diclofenac sodium 50 mg PO TID 09/16/18 09/16/18 History diphenhydramine-acetaminophen 2 tab PO HS PRN 09/16/18 09/16/18 History [Tylenol PM Extra Strength] empagliflozin [Jardiance] 10 mg PO QAM 09/16/18 09/16/18 History gabapentin 300 mg PO TID 09/16/18 09/16/18 History gemfibrozil 600 mg PO BID 09/16/18 09/16/18 History losartan 25 mg PO QPM 09/16/18 09/16/18 History metformin 1,000 mg PO BID 09/16/18 09/16/18 History niacin 1,000 mg PO HS 09/16/18 09/16/18 History niacin 500 mg PO HS 09/16/18 09/16/18 History omega 8-hgx-aex-fish oil 2,000 mg PO BID 09/16/18 09/16/18 History omeprazole 20 mg PO DAILY 09/16/18 09/16/18 History Past Med/Surg History Medical History Pancreatitis (Acute) Surgical History History of cholecystectomy Social History Current Living Situation: Family Other Information That Helps Us Care for You: No Feels Safe at Home: Yes Safety Concerns: Feels Safe At This Time Smoking Status: Former smoker Tobacco Type: cigarettes Do You Dip or Chew Tobacco: No Smoking End Date: 2 years ago. Second Hand Exposure: No Tobacco Cessation Education Requested by Patient: No Hx Alcohol Use: Yes Alcohol type: wine Alcohol Intake Frequency: holidays/ special occasions only Hx Substance Use: No Beliefs That Will Affect Care: None Communication Ability: Effective Senior Manager Quality Assurance Required: No Review of Systems As per HPI, all 10 systems reviewed, all other ROS negative Physical Exam 2 Vital Signs (Past 24 Hours): Last Vital Signs Temp 37.0 C 09/16/18 20:58 Pulse 88 09/16/18 23:03 Resp 18 09/16/18 23:03 BP 147/87 H 09/16/18 23:03 Pulse Ox 96 09/16/18 23:03 Physical Exam: GENERAL: Slightly uncomfortable, obese , no respiratory distress SKIN: Normal color, warm HEENT: [place] palpebral conjunctivae, no ptosis, dry buccal mucosa NECK : Supple, no tenderness CHEST : CTA, no tenderness HEART : RRR, no obvious murmurs ABDOMEN: Some distention, epigastric tenderness, EXTREMITIES : No LE swelling/tenderness, no other conspicuous deformities noted NEUROLOGIC : Coherent, no facial asymmetry, no other gross focality Results & Data Laboratory Results Laboratory Results WBC 12.92 K/uL (4.8-10.8) H 09/16/18 21:19 RBC 5.27 M/uL (4.7-6.1) 09/16/18 21:19 Hgb 15.0 g/dL (14.0-18.0) 09/16/18 21:19 Hct 41.3 % (42-52) L 09/16/18 21:19 MCV 78.4 fL (80-100) L 09/16/18 21:19 MCH 28.5 pg (25-34) 09/16/18 21:19 MCHC 36.3 g/dL (32-36) H 09/16/18 21:19 RDW Std Deviation 45.9 fL (36.4-46.3) 09/16/18: RDW Coeff of Aiyana 16.4 % (11.5-14.5) H 09/16/18 21:19 Plt Count 237 K/uL (130-400) 09/16/18 21: MPV 9.6 fL (7.4-10.4) 09/16/18 21:19 Immature Gran % (Auto) 0.4 % 09/16/18 21:19 Neut % (Auto) 77.1 % 09/16/18 21:19 Lymph % (Auto) 13.2 % 09/16/18 21:19 [place] % (Auto) 8.2 % 09/16/18 21:19 Eos % (Auto) 0.9 % 09/16/18 21:19 Baso % (Auto) 0.2 % 09/16/18 21:19 Immature Gran # (Auto) 0.05 K/uL (0.00-0.02) H 09/16/18 21:19 Neut # (Auto) 9.95 K/uL (1.4-6.5) H 09/16/18 21:19 Lymph # (Auto) 1.71 K/uL (1.2-3.4) 09/16/18 21:19 [place] # (Auto) 1.06 K/uL (0.11-0.59) H 09/16/18 21:19 Eos # (Auto) 0.12 K/uL (0-0.5) 09/16/18 21:19 Baso # (Auto) 0.03 K/uL (0-0.2) 09/16/18 21:19 Sodium 141 mmol/L (136-145) 09/16/18 21: Potassium mmol/L (3.5-5.1) 09/16/18 21:19 Chloride 104 mmol/L (98-107) 09/16/18 21:19 Carbon Dioxide 26 mmol/L (21-32) 09/16/18 21: Anion Gap 10.0 (3-11) 09/16/18 21:19 BUN 13 mg/dl (7-18) 09/16/18 21: Creatinine 1.02 mg/dl (0.6-1.4) 09/16/18 21: Est Cr Clr Drug Dosing 123.4 ml/min 09/16/18 21: Est GFR ( Amer) 108.3 09/16/18 21: Est GFR (Non-Af Amer) 93.5 09/16/18 21: BUN/Creatinine Ratio 12.3 (10-20) 09/16/18 21: Glucose 182 mg/dl (70-99) H 09/16/18 21: Calcium 10.1 mg/dl (8.5-10.1) 09/16/18 21: Magnesium Cancelled 09/16/18 22:45 Total Bilirubin 0.6 mg/dl (0.2-1) 09/16/18 21: Direct Bilirubin mg/dl (0-0.2) 09/16/18 21:19 AST U/L (15-37) 09/16/18 21: ALT 39 U/L (12-78) 09/16/18 21:19 Alkaline Phosphatase 73 U/L (45-117) 09/16/18 21:19 Total Protein 7.9 gm/dl (6.4-8.2) 09/16/18 21: Albumin 4.0 gm/dl (3.4-5.0) 09/16/18 21: Lipase 05751 U/L (73-393) H 09/16/18 21:19 Urine Color Yellow 09/16/18 21:25 Urine Appearance Clear (Clear) 09/16/18 21:25 Urine pH 8.5 (4.5-7.5) H 09/16/18 21:25 Ur Specific [place] 1.030 (1.000-1.030) 09/16/18 21:25 Urine Protein 2+ (Negative) H 09/16/18 21:25 Urine Glucose (UA) 3+ (Negative) H 09/16/18 21:25 Urine Ketones 1+ (Negative) H 09/16/18 21:25 Urine Blood Negative (Negative) 09/16/18 21: Urine Nitrite Negative (Negative) 09/16/18 21: Urine Bilirubin Negative (Negative) 09/16/18 21:25 Urine Urobilinogen Negative (Negative) 09/16/18 21:25 Ur Leukocyte Esterase Negative (Negative) 09/16/18 21:25 Urine WBC (Auto) 1-5 /hpf (0-5) 09/16/18 21:25 Urine RBC (Auto) 0-4 /hpf (0-4) 09/16/18 21:25 U Hyaline Cast (Auto) 1-5 /lpf (0-5) 09/16/18 21:25 U Epithel Cells (Auto) 10-20 /lpf (0-5) H 09/16/18 21:25 Urine Bacteria (Auto) Negative (Negative) 09/16/18 21:25
[2018-09-17 00:08] LABS: Potassium 3.8 mmol/L (3.5-5.1)
[2018-09-17 00:13] LABS: Aspartate Aminotransferase 14 U/L (15-37); Bilirubin Direct < 0.1 mg/dl (0-0.2); Magnesium 1.7 mg/dl (1.8-2.4)
[2018-09-17] MEDS ORDERED: MoRPHine SULFATE 4 MG/ML 1 ML CARP\\VIAL ONE (00:20)
[2018-09-17] MEDS ORDERED: PROCHLORPERAZINE 5 MG in SYRINGE 4 ML IV PRN (00:48)
[2018-09-17] MEDS ORDERED: GLUCAGON FOR INJ 1 MG VIAL SQ PRN (00:48)
[2018-09-17] MEDS ORDERED: GLUCOSE 10 TABS/TUBE PO PRN (00:48)
[2018-09-17] MEDS ORDERED: GLUCOSE 40% GEL 15 GM TUBE PO PRN (00:48)
[2018-09-17] MEDS ORDERED: ACETAMINOPHEN 325 MG TAB PO PRN ×2 (00:48→01:15)
[2018-09-17] MEDS ORDERED: CARBOHYDRATES FOR HYPOGLYCEMIA PO PRN (00:48)
[2018-09-17] MEDS ORDERED: DEXTROSE 50% 50 ML SYRINGE IV PRN (00:48)
[2018-09-17] MEDS ORDERED: MoRPHine SULFATE 4 MG/ML 1 ML CARP\\VIAL IV PRN (00:48)
[2018-09-17] MEDS ORDERED: LOSARTAN POTASSIUM 25 MG TAB PO STA (01:04)
[2018-09-17] MEDS: GABAPENTIN 300 MG CAP PO SCH ×4 (01:26→19:53)
[2018-09-17] MEDS: LIDOCAINE 5% 1 PATCH TD SCH ×2 (01:26→21:39)
[2018-09-17] MEDS: LACTATED RINGER'S 1,000 ML IV SCH ×5 (01:31→21:38)
[2018-09-17] MEDS: HYDROmorphone INJ 0.5 MG/0.5 ML SYR IV PRN ×3 (02:31→13:41)
[2018-09-17] MEDS: TRAMADOL HCL 50 MG TABLET PO PRN ×2 (03:41→15:28)
[2018-09-17 07:12] LABS: Basophils # (auto) 0.02 K/uL (0-0.2); Basophils % (auto) 0.1 %; Eosinophils # (auto) 0.01 K/uL (0-0.5); Eosinophils % (auto) 0.1 %; Hemoglobin 14.6 g/dL (14.0-18.0); Immature Granulocytes # (auto) 0.07 K/uL (0.00-0.02); Immature Granulocytes % (auto) 0.4 %; Lymphocytes # (auto) 1.34 K/uL (1.2-3.4); Lymphocytes % (auto) 8.5 %; Mean Corpuscular Hgb Conc 34.8 g/dL (32-36); Mean Corpuscular Volume 78.5 fL (80-100); Mean Platelet Volume 9.5 fL (7.4-10.4); Monocytes # (auto) 1.21 K/uL (0.11-0.59); Monocytes % (auto) 7.7 %; Neutrophils % (auto) 83.2 %; Platelet Count 213 K/uL (130-400); RDW Coefficient of Variation 16.4 % (11.5-14.5); RDW Standard Deviation 46.3 fL (36.4-46.3); Red Blood Count 5.35 M/uL (4.7-6.1); White Blood Count 15.75 K/uL (4.8-10.8)
[2018-09-17 07:22] LABS: Estimated Average Glucose 163 mg/dl
[2018-09-17 07:28] LABS: INR 1.1 (0.9-1.1); Prothrombin Time 11.1 Seconds (9.0-12.0)
[2018-09-17] MEDS ORDERED: INSULIN ASPART 100 UNITS/ML 3 ML PEN SC SCH (07:30)
[2018-09-17] MEDS ORDERED: MAGNESIUM SULFATE / D5W 1 GM/100 ML BAG IV ONE (07:45)
[2018-09-17 07:46] LABS: Albumin Level 3.5 gm/dl (3.4-5.0); Bilirubin,Total 0.7 mg/dl (0.2-1); Calcium 8.5 mg/dl (8.5-10.1); Creatinine Clr Calc Pharmacy 142.5 ml/min; Est GFR (African American) 127.2; Est GFR (Non-African American) 109.7
[2018-09-17 08:10] LABS: Potassium 3.5 mmol/L (3.5-5.1)
[2018-09-17 08:15] LABS: Albumin Globulin Ratio 0.9 (0.9-2); Globulin 3.9 gm/dl (2.5-4.0); Total Protein 7.4 gm/dl (6.4-8.2)
[2018-09-17 08:50] LABS: BUN Creatinine Ratio 11.4 (10-20)
[2018-09-17] MEDS ORDERED: CYCLOBENZAPRINE HCL 5 MG TAB PO PRN (09:04)
--- NOTE | 2018-09-17 09:05 | Hospitalist Progress Note ---
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 currently every 2 weeks choledochal cyst status post surgery -- TG decreased from 19k to 2k Lipase increased from 1900s to 2200s, but patient clinically improved abdominal pain resolved, diet advanced to clears -- continue LR at 200cc/hr appreciate GI service consult Sciatica, History of Disc Herniation -- patient experiencing significant pain today -- Dilaudid 1mg IV q4h, Solumedrol IV one dose home dose of Gabapentin and Flexeril ordered HTN -- improving Tachycardia -- sinus secondary to pain monitor DM2 on oral meds well controlled as of recent outpatient hemoglobin A1c of 5.5 last April 2018 chronic anemia, hemoglobin better than baseline secondary to hemoconcentration DVT prophylaxis. Lovenox subcu Full code Subjective ff up for acute pancreatitis seen in bed, not in distress abdominal pain has resolved, no nausea reports left leg pain- 6/10, typical of sciatic pain, no numbness/paresthesias denies other symptoms Physical Exam 2 Vital Signs (Past 24 Hours): Last Vital Signs Temp 36.8 C 09/17/18 07:24 Pulse 141 H 09/17/18 07:24 Resp 18 09/17/18 07:24 BP 137/89 09/17/18 07:24 Pulse Ox 94 09/17/18 07:24 Physical Exam: General- oriented x 2, not in distress, speaks in sentences with no effort or accessory muscle use Eyes- anicteric Neck- no JVD Lungs- clear breath sounds bilaterally no crackles/wheezing Heart- normal rate, regular rhythm; no murmurs Abdomen- normal bowel sounds, nondistended, soft, nontender Extremities- no pretibial edema, no calf tenderness Neuro- alert, oriented x 3; no gross focal neurologic deficits Skin- warm & dry Results & Data Laboratory Results Laboratory Results - last 24 hr 09/16/18 09/16/18 09/16/18 21:19 21:19 21:19 WBC 12.92 H RBC 5.27 Hgb 15.0 Hct 41.3 L MCV 78.4 L MCH 28.5 MCHC 36.3 H RDW Std Deviation 45.9 RDW Coeff of Aiyana 16.4 H Plt Count 237 MPV 9.6 Immature Gran % (Auto) 0.4 Neut % (Auto) 77.1 Lymph % (Auto) 13.2 [place] % (Auto) 8.2 Eos % (Auto) 0.9 Baso % (Auto) 0.2 Immature Gran # (Auto) 0.05 H Neut # (Auto) 9.95 H Lymph # (Auto) 1.71 [place] # (Auto) 1.06 H Eos # (Auto) 0.12 Baso # (Auto) 0.03 PT INR Sodium 141 Potassium Chloride 104 Carbon Dioxide 26 Anion Gap 10.0 BUN 13 Creatinine 1.02 Est Cr Clr Drug Dosing 123.4 Est GFR ( Amer) 108.3 Est GFR (Non-Af Amer) 93.5 BUN/Creatinine Ratio 12.3 Glucose 182 H POC Glucose Estimat Average Glucose 163 Hemoglobin A1c 7.3 H Calcium 10.1 Magnesium Total Bilirubin 0.6 Direct Bilirubin AST ALT 39 Alkaline Phosphatase 73 Total Protein 7.9 Albumin 4.0 Globulin Albumin/Globulin Ratio Lipase 38475 H Urine Color Urine Appearance Urine pH Ur Specific [place] Urine Protein Urine Glucose (UA) Urine Ketones Urine Blood Urine Nitrite Urine Bilirubin Urine Urobilinogen Ur Leukocyte Esterase Urine WBC (Auto) Urine RBC (Auto) U Hyaline Cast (Auto) U Epithel Cells (Auto) Urine Bacteria (Auto) 09/16/18 09/16/18 09/16/18 21:25 22:45 23:31 WBC RBC Hgb Hct MCV MCH MCHC RDW Std Deviation RDW Coeff of Aiyana Plt Count MPV Immature Gran % (Auto) Neut % (Auto) Lymph % (Auto) [place] % (Auto) Eos % (Auto) Baso % (Auto) Immature Gran # (Auto) Neut # (Auto) Lymph # (Auto) [place] # (Auto) Eos # (Auto) Baso # (Auto) PT INR Sodium Potassium Cancelled 3.8 Chloride Carbon Dioxide Anion Gap BUN Creatinine Est Cr Clr Drug Dosing Est GFR ( Amer) Est GFR (Non-Af Amer) BUN/Creatinine Ratio Glucose POC Glucose Estimat Average Glucose Hemoglobin A1c Calcium Magnesium Cancelled 1.7 L Total Bilirubin Direct Bilirubin Cancelled < 0.1 AST Cancelled 14 L ALT Alkaline Phosphatase Total Protein Albumin Globulin Albumin/Globulin Ratio Lipase Urine Color Yellow Urine Appearance Clear Urine pH 8.5 H Ur Specific [place] 1.030 Urine Protein 2+ H Urine Glucose (UA) 3+ H Urine Ketones 1+ H Urine Blood Negative Urine Nitrite Negative Urine Bilirubin Negative Urine Urobilinogen Negative Ur Leukocyte Esterase Negative Urine WBC (Auto) 1-5 Urine RBC (Auto) 0-4 U Hyaline Cast (Auto) 1-5 U Epithel Cells (Auto) 10-20 H Urine Bacteria (Auto) Negative 09/17/18 09/17/18 09/17/18 06:55 06:55 06:55 WBC 15.75 H RBC 5.35 Hgb 14.6 Hct 42.0 MCV 78.5 L MCH 27.3 MCHC 34.8 RDW Std Deviation 46.3 RDW Coeff of Aiyana 16.4 H Plt Count 213 MPV 9.5 Immature Gran % (Auto) 0.4 Neut % (Auto) 83.2 Lymph % (Auto) 8.5 [place] % (Auto) 7.7 Eos % (Auto) 0.1 Baso % (Auto) 0.1 Immature Gran # (Auto) 0.07 H Neut # (Auto) 13.10 H Lymph # (Auto) 1.34 [place] # (Auto) 1.21 H Eos # (Auto) 0.01 Baso # (Auto) 0.02 PT 11.1 INR 1.1 Sodium 138 Potassium 3.5 Chloride 104 Carbon Dioxide 24 Anion Gap 10.0 BUN 10 Creatinine 0.88 Est Cr Clr Drug Dosing 142.5 Est GFR ( Amer) 127.2 Est GFR (Non-Af Amer) 109.7 BUN/Creatinine Ratio 11.4 Glucose 155 H POC Glucose Estimat Average Glucose Hemoglobin A1c Calcium 8.5 D Magnesium Total Bilirubin 0.7 Direct Bilirubin AST 16 ALT 37 Alkaline Phosphatase 57 Total Protein 7.4 Albumin 3.5 Globulin 3.9 Albumin/Globulin Ratio 0.9 Lipase 2292 H Urine Color Urine Appearance Urine pH Ur Specific [place] Urine Protein Urine Glucose (UA) Urine Ketones Urine Blood Urine Nitrite Urine Bilirubin Urine Urobilinogen Ur Leukocyte Esterase Urine WBC (Auto) Urine RBC (Auto) U Hyaline Cast (Auto) U Epithel Cells (Auto) Urine Bacteria (Auto) 09/17/18 09/17/18 09/17/18 08:10 12:19 18:00 WBC RBC Hgb Hct MCV MCH MCHC RDW Std Deviation RDW Coeff of Aiyana Plt Count MPV Immature Gran % (Auto) Neut % (Auto) Lymph % (Auto) [place] % (Auto) Eos % (Auto) Baso % (Auto) Immature Gran # (Auto) Neut # (Auto) Lymph # (Auto) [place] # (Auto) Eos # (Auto) Baso # (Auto) PT INR Sodium Potassium Chloride Carbon Dioxide Anion Gap BUN Creatinine Est Cr Clr Drug Dosing Est GFR ( Amer) Est GFR (Non-Af Amer) BUN/Creatinine Ratio Glucose POC Glucose 156 H 145 H 140 H Estimat Average Glucose Hemoglobin A1c Calcium Magnesium Total Bilirubin Direct Bilirubin AST ALT Alkaline Phosphatase Total Protein Albumin Globulin Albumin/Globulin Ratio Lipase Urine Color Urine Appearance Urine pH Ur Specific [place] Urine Protein Urine Glucose (UA) Urine Ketones Urine Blood Urine Nitrite Urine Bilirubin Urine Urobilinogen Ur Leukocyte Esterase Urine WBC (Auto) Urine RBC (Auto) U Hyaline Cast (Auto) U Epithel Cells (Auto) Urine Bacteria (Auto)
[2018-09-17] MEDS ORDERED: HYDROmorphone INJ 0.5 MG/0.5 ML SYR IV STA (09:09)
[2018-09-17] MEDS ORDERED: CYCLOBENZAPRINE HCL 5 MG TAB PO STA (09:09)
[2018-09-17] MEDS: INSULIN ASPART 100 UNITS/ML 3 ML PEN SC SCH ×3 (09:40→18:04)
[2018-09-17] MEDS: ENOXAPARIN INJ 40 MG/0.4 ML SYR SQ SCH (09:41)
[2018-09-17] MEDS: PANTOprazole 40 MG TAB PO SCH (09:42)
[2018-09-17] MEDS: OMEGA-3 (PURIFIED FISH OIL) 1 GM CAP PO SCH ×2 (09:42→19:54)
[2018-09-17] MEDS: GEMFIBROZIL 600 MG TAB PO SCH ×2 (09:42→19:52)
--- NOTE | 2018-09-17 13:22 | Consultation Report ---
DATE OF CONSULTATION: 09/17/2018 GASTROENTEROLOGY CONSULT RACE: . ATTENDING PHYSICIAN: Dr. Nolan. CONSULTING PHYSICIAN: Dr. Montalvo. REASON FOR CONSULTATION: Pancreatitis. HISTORY OF PRESENT ILLNESS: Jakob Wilhelm is a 37-year-old male with a history of recurrent pancreatitis. He has had recurrent pancreatitis secondary to hypertriglyceridemia and a choledochal cyst which he underwent surgery in the [facility] last year. He presented to the Department of Emergency Medicine last evening with complaints of midepigastric abdominal pain radiating into his back and upon arrival was noted to have a lipase level of 19,014. He subsequently was kept n.p.o., admitted, given IV fluids and given narcotic analgesics as needed for control of his symptoms. At the time that I saw the patient this morning, he was feeling much better. He states that he has no abdominal pain at this time. He denies any fevers, chills, nausea, vomiting, diarrhea, hematemesis, melena, hematochezia, jaundice, acholic stools, dark urine, or pruritus. He states that he feels that his symptoms are resolving and is asking to have some p.o. intake. He denies any further complaints. PAST MEDICAL HISTORY: Significant for pancreatitis and a choledochal cyst as well as hypertriglyceridemia. PAST SURGICAL HISTORY: Includes a history of cholecystectomy, choledochal cyst repair. SOCIAL HISTORY: He is currently living with family. He denies any tobacco use at present. He was a former smoker. He has an occasional alcoholic beverage, though denies any illicit drug use. ALLERGIES: None. MEDICATIONS: Include Tylenol 650 mg p.o. q. 4 p.r.n., aspirin 325 mg p.o. at bedtime, Phenergan 5 mg IV q. 6 p.r.n., cyclobenzaprine 5 mg p.o. t.i.d. p.r.n., Lovenox 40 mg subQ q.a.m., fish oil 2 grams p.o. b.i.d., gabapentin 300 mg p.o. t.i.d., Lopid 600 mg p.o. b.i.d., Dilaudid 0.5 mg IV q. 3 p.r.n. pain, sliding scale insulin, Cozaar 25 mg p.o. q.p.m., morphine 4 mg IV q. 4 p.r.n., niacin 500 mg p.o. at bedtime, Protonix 40 mg p.o. daily, tramadol 25-50 mg p.o. q. 4 p.r.n. pain. PHYSICAL EXAMINATION: VITAL SIGNS: Temperature 36.8, pulse 141, respirations 18, blood pressure 137/89, pulse ox 94% on room air. GENERAL: He is awake, cooperative, in no acute distress. HEAD: Normocephalic, atraumatic. EYES: Pupils equal, round. Extraocular muscles are intact. ENT: External evaluation of ears and nose are normal. Oropharynx is clear. NECK: Soft, supple. No JVD or lymphadenopathy. CHEST: Clear to auscultation bilaterally. CARDIOVASCULAR SYSTEM: Regular rate and rhythm. ABDOMEN: Soft, minimal tenderness in the left upper quadrant. Nondistended. Positive bowel sounds. There is no hepatosplenomegaly or stigmata of chronic liver disease. EXTREMITIES: No clubbing, cyanosis, or edema. SKIN: Soft, pink. Good turgor. LABORATORY DATA: Laboratory studies from this morning show a decline in his lipase from 19,014 yesterday to 2292 today. His white blood cell count is elevated today at 15.75, hemoglobin 14.6, hematocrit 42.0, and a platelet count is 213. IMPRESSION: A 37-year-old male with recurrent pancreatitis, currently resolving. PLAN: At the present time, I would recommend that the patient be advanced to a clear-liquid diet to see if he tolerates this. I would continue supportive care with narcotic analgesics, antiemetics and will follow his clinical course and make further recommendations as needed. Once again, thanks for allowing me to participate in the care of this patient. If you have any further questions, please do not hesitate in contacting me.
[2018-09-17] MEDS ORDERED: methylPREDNISolone 40 MG in SYRINGE 0 ML IV STA (15:39)
[2018-09-17] MEDS: HYDROmorphone INJ 1 MG/ML SYRINGE IV PRN ×2 (16:10→21:42)
[2018-09-17] MEDS: LOSARTAN POTASSIUM 25 MG TAB PO SCH (19:52)
[2018-09-17] MEDS: NIACIN EXTENDED REL 500 MG TABCR PO SCH (19:54)
[2018-09-17] MEDS ORDERED: ASPIRIN 325 MG ECTAB PO SCH (21:00)
[2018-09-17] MEDS: ATORVASTATIN 40 MG TAB PO SCH (21:38)
[2018-09-17] MEDS: DICLOFENAC SODIUM 25 MG TABDR PO SCH (21:39)
[2018-09-17] MEDS: NIACIN 500 MG TAB PO SCH (21:39)
[2018-09-18] MEDS: INSULIN ASPART 100 UNITS/ML 3 ML PEN SC SCH ×5 (00:33→20:33)
[2018-09-18] MEDS: LACTATED RINGER'S 1,000 ML IV SCH ×2 (02:24→07:14)
[2018-09-18] MEDS: TRAMADOL HCL 50 MG TABLET PO PRN ×2 (03:06→07:14)
[2018-09-18 08:31] LABS: BUN Creatinine Ratio 20.8 (10-20); Calcium 8.9 mg/dl (8.5-10.1); Est GFR (African American) 135.1; Est GFR (Non-African American) 116.6; Potassium 3.9 mmol/L (3.5-5.1)
[2018-09-18] MEDS: PANTOprazole 40 MG TAB PO SCH (08:33)
[2018-09-18] MEDS: GABAPENTIN 300 MG CAP PO SCH ×3 (08:33→20:41)
[2018-09-18] MEDS: ENOXAPARIN INJ 40 MG/0.4 ML SYR SQ SCH (08:33)
[2018-09-18] MEDS: GEMFIBROZIL 600 MG TAB PO SCH ×2 (08:34→20:41)
[2018-09-18] MEDS: DICLOFENAC SODIUM 25 MG TABDR PO SCH ×3 (08:34→17:57)
[2018-09-18] MEDS: OMEGA-3 (PURIFIED FISH OIL) 1 GM CAP PO SCH ×2 (08:35→20:38)
[2018-09-18 08:46] LABS: Basophils # (auto) 0.02 K/uL (0-0.2); Basophils % (auto) 0.2 %; Eosinophils # (auto) 0.07 K/uL (0-0.5); Eosinophils % (auto) 0.8 %; Hematocrit (blood only) 33.6 % (42-52); Hemoglobin 11.1 g/dL (14.0-18.0); Immature Granulocytes # (auto) 0.01 K/uL (0.00-0.02); Immature Granulocytes % (auto) 0.1 %; Lymphocytes # (auto) 1.49 K/uL (1.2-3.4); Lymphocytes % (auto) 16.9 %; Mean Corpuscular Volume 80.4 fL (80-100); Mean Platelet Volume 9.3 fL (7.4-10.4); Monocytes # (auto) 0.87 K/uL (0.11-0.59); Monocytes % (auto) 9.9 %; Neutrophils # (auto) 6.35 K/uL (1.4-6.5); Neutrophils % (auto) 72.1 %; Platelet Count 140 K/uL (130-400); RDW Coefficient of Variation 16.2 % (11.5-14.5); RDW Standard Deviation 47.4 fL (36.4-46.3); Red Blood Count 4.18 M/uL (4.7-6.1); White Blood Count 8.81 K/uL (4.8-10.8)
--- NOTE | 2018-09-18 08:56 | Hospitalist Progress Note ---
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 currently every 2 weeks choledochal cyst status post surgery -- TG decreased from 19k to 2k Lipase increased from 1900s to 2200s, but patient clinically improved abdominal pain resolved, diet advanced to clears -- continue LR at 200cc/hr appreciate GI service consult 09/18 doing well no GI symptoms Lipase normalized TG only 400s clear liquids this morning, soft/low fat diet for lunch monitor Sciatica, History of Disc Herniation -- patient experiencing significant pain today -- Dilaudid 1mg IV q4h, Solumedrol IV one dose home dose of Gabapentin and Flexeril ordered 09/18 much better continue usual PO meds HTN -- improving Tachycardia -- sinus secondary to pain - resolved DM2 on oral meds well controlled as of recent outpatient hemoglobin A1c of 5.5 last April 2018 - a1c 7.3 needs better glycemic control 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 Lovenox subcu Full code possible d/c home in the evening if patient remains stable, cleared by GI Subjective ff up for acute pancreatitis resting in bed, comfortable no abdominal pain/nausea since last night left leg pain also significantly better- more of burning pain on the lateral aspect of the left leg no other neuro symptoms no back pain denies other symptoms Physical Exam 2 Vital Signs (Past 24 Hours): Last Vital Signs Temp 36.5 C 09/18/18 07:20 Pulse 81 09/18/18 07:20 Resp 16 09/18/18 07:20 BP 108/72 09/18/18 07:20 Pulse Ox 95 09/18/18 07:20 Physical Exam: General- oriented x 3, not in distress, speaks in sentences with no effort or accessory muscle use Eyes- anicteric Neck- no JVD Lungs- clear BS bilaterally no rales, no wheezing Heart- normal rate, regular rhythm; no murmurs Abdomen- normal bowel sounds, nondistended, soft, nontender Extremities- no pretibial edema, no calf tenderness Neuro- alert, oriented x 3; no gross focal neurologic deficits Skin- warm & dry Results & Data Laboratory Results Laboratory Results - last 24 hr 09/17/18 09/17/18 09/17/18 12:19 18:00 23:57 WBC RBC Hgb Hct MCV MCH MCHC RDW Std Deviation RDW Coeff of Aiyana Plt Count MPV Immature Gran % (Auto) Neut % (Auto) Lymph % (Auto) [place] % (Auto) Eos % (Auto) Baso % (Auto) Immature Gran # (Auto) Neut # (Auto) Lymph # (Auto) [place] # (Auto) Eos # (Auto) Baso # (Auto) Sodium Potassium Chloride Carbon Dioxide Anion Gap BUN Creatinine Est Cr Clr Drug Dosing Est GFR ( Amer) Est GFR (Non-Af Amer) BUN/Creatinine Ratio Glucose POC Glucose 145 H 140 H 143 H Calcium Triglycerides Lipase 09/18/18 09/18/18 09/18/18 05:53 07:50 07:50 WBC 8.81 RBC 4.18 L Hgb 11.1 L D Hct 33.6 L MCV 80.4 MCH 26.6 MCHC 33.0 RDW Std Deviation 47.4 H RDW Coeff of Aiyana 16.2 H Plt Count 140 MPV 9.3 Immature Gran % (Auto) 0.1 Neut % (Auto) 72.1 Lymph % (Auto) 16.9 [place] % (Auto) 9.9 Eos % (Auto) 0.8 Baso % (Auto) 0.2 Immature Gran # (Auto) 0.01 Neut # (Auto) 6.35 Lymph # (Auto) 1.49 [place] # (Auto) 0.87 H Eos # (Auto) 0.07 Baso # (Auto) 0.02 Sodium 136 Potassium 3.9 Chloride 103 Carbon Dioxide 26 Anion Gap 7.0 BUN 16 D Creatinine 0.76 Est Cr Clr Drug Dosing 165.0 Est GFR ( Amer) 135.1 Est GFR (Non-Af Amer) 116.6 BUN/Creatinine Ratio 20.8 H Glucose 99 POC Glucose 115 H Calcium 8.9 Triglycerides 401 H Lipase 211
--- NOTE | 2018-09-18 10:54 | Progress Note ---
DATE: 09/18/2018 SUBJECTIVE: I had the pleasure of seeing Jakob today in the hallway as he was walking the halls stating that he is feeling much improved. He denied any abdominal pain, fevers, chills, nausea, vomiting, hematemesis, melena, or hematochezia. He further denied any jaundice, acholic stools, dark urine, or pruritus and states he is feeling back to normal. He asked to advance his diet. He had no further complaints. REVIEW OF SYSTEMS: Negative times a 10-system review otherwise. PHYSICAL EXAMINATION: Includes VITAL SIGNS: Temperature 36.5, pulse 81, respirations 16, blood pressure 108/72, pulse oximetry 95% on room air. GENERAL: He is awake, cooperative, in no acute distress. HEAD: Normocephalic, atraumatic. EYES: Pupils equal and round. Extraocular muscles are intact. ENT: External evaluation of ears and nose is normal. Oropharynx is clear. CHEST: Clear to auscultation bilaterally. CARDIOVASCULAR SYSTEM: Regular rate and rhythm. GASTROINTESTINAL: Abdomen is soft, nontender, nondistended. Positive bowel sounds. There is no hepatosplenomegaly or stigmata of chronic liver disease. EXTREMITIES: No clubbing, cyanosis, or edema. LABORATORY STUDIES: From this morning include a white blood cell count of 8.81, hemoglobin 11.1, hematocrit 33.6, and a platelet count of 140. His lipase level today was 211. IMPRESSION: This is a 37-year-old male with resolving recurrent acute pancreatitis. PLAN: At the present time, I would advance his diet as tolerated. I would have him follow up with [facility] GI team as an outpatient for further evaluation and recommendations, and I would continue supportive care. Once again, thanks for allowing me to participate in the care of this patient. If you have any further questions, please do not hesitate in contacting me.
[2018-09-18] MEDS ORDERED: Nursing to Pharmacy Communication ONE (15:08)
[2018-09-18] MEDS: NIACIN EXTENDED REL 500 MG TABCR PO SCH (20:40)
[2018-09-18] MEDS: NIACIN 500 MG TAB PO SCH (20:40)
[2018-09-18] MEDS: ATORVASTATIN 40 MG TAB PO SCH (20:41)
[2018-09-18] MEDS: LOSARTAN POTASSIUM 25 MG TAB PO SCH (20:41)
[2018-09-18] MEDS: LIDOCAINE 5% 1 PATCH TD SCH (20:42)
[2018-09-19] MEDS ORDERED: HYDROmorphone INJ 2 MG/ML SYR/VIAL IV STA (01:08)
--- NOTE | 2018-09-19 01:12 | Hospitalist Progress Note ---
Date of Service September 19, 2018 Physical Exam 2 Vital Signs (Past 24 Hours): Last Vital Signs Temp 36.6 C 09/18/18 23:10 Pulse 68 09/18/18 23:10 Resp 16 09/18/18 23:10 BP 111/65 09/18/18 23:10 Pulse Ox 94 09/18/18 23:10
[2018-09-19] MEDS: TRAMADOL HCL 50 MG TABLET PO PRN (05:59)
[2018-09-19] MEDS: DICLOFENAC SODIUM 25 MG TABDR PO SCH (07:54)
[2018-09-19] MEDS: OMEGA-3 (PURIFIED FISH OIL) 1 GM CAP PO SCH (07:58)
[2018-09-19] MEDS: GEMFIBROZIL 600 MG TAB PO SCH (07:58)
[2018-09-19] MEDS: GABAPENTIN 300 MG CAP PO SCH (07:58)
[2018-09-19] MEDS: PANTOprazole 40 MG TAB PO SCH (07:58)
[2018-09-19] MEDS: ENOXAPARIN INJ 40 MG/0.4 ML SYR SQ SCH (08:01)
[2018-09-19] MEDS: INSULIN ASPART 100 UNITS/ML 3 ML PEN SC SCH (09:50)
--- NOTE | 2018-09-19 11:14 | Hospitalist Progress Note ---
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 currently every 2 weeks choledochal cyst status post surgery -- TG decreased from 19k to 2k Lipase increased from 1900s to 2200s, but patient clinically improved abdominal pain resolved, diet advanced to clears -- continue LR at 200cc/hr appreciate GI service consult 09/18 doing well no GI symptoms Lipase normalized TG only 400s clear liquids this morning, soft/low fat diet for lunch monitor 09/19 stable overall no GI symptoms cleared for discharge by GI as well ff up with [facility] next week for usual apharesis 2x a week ff up with Gastro GI in 2-3 weeks ff up with PCP this 09/22 Sciatica, History of Disc Herniation -- patient experiencing significant pain today -- Dilaudid 1mg IV q4h, Solumedrol IV one dose home dose of Gabapentin and Flexeril ordered 09/18 much better continue usual PO meds continue ff up with Ortho as outpatient HTN -- stable continue usual meds Tachycardia -- sinus secondary to pain - resolved DM2 on oral meds well controlled as of recent outpatient hemoglobin A1c of 5.5 last April 2018 - a1c 7.3 needs better glycemic control 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 Lovenox subcu Full code DC home ff up with [facility] next week for usual apharesis 2x a week ff up with Gastro GI in 2-3 weeks ff up with PCP this 09/22 Subjective ff up for acute pancreatitis seen resting in bed, comfortable in good spirits states he feels fine overall denies abdominal pain , nausea tolerated diet well leg pain also well controlled denies other symptoms states he is ready and would like to be discharged today Physical Exam 2 Vital Signs (Past 24 Hours): Last Vital Signs Temp 36.5 C 09/19/18 07:09 Pulse 92 H 09/19/18 07:09 Resp 18 09/19/18 07:09 BP 123/86 09/19/18 07:09 Pulse Ox 95 09/19/18 07:09 Physical Exam: General- oriented x 3, not in distress, speaks in sentences with no effort or accessory muscle use Eyes- anicteric Neck- no JVD Lungs- clear BS BL no rales no wheezing Heart- normal rate, regular rhythm; no murmurs Abdomen- normal bowel sounds, nondistended, soft, nontender Extremities- no pretibial edema, no calf tenderness Neuro- alert, oriented x 3; no gross focal neurologic deficits Skin- warm & dry Results & Data Laboratory Results Laboratory Results - last 24 hr 09/18/18 09/18/18 09/18/18 12:13 16:55 20:28 POC Glucose 110 H 80 119 H 09/19/18 08:08 POC Glucose 107 H
--- NOTE | 2018-09-19 11:20 | Discharge Summary ---
Date of Service September 19, 2018 Admission HPI Per Admitting Provider History obtained from patient and records. 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 Recent confinement February 2018 for recurrent pancreatitis. One day history of achy upper abdominal pain with nausea and emesis. No chest pain, no SOB. Denies recent fatty food/ETOH intake. Last outpatient serum triglyceride level for this month was 4000. Apheresis scheduled at [facility] outpatient next week. Medical History as above Surgical History : Cholecystectomy, choledochal cyst excision, partial Whipple with bile duct reconstruction, tonsillectomy adenoidectomy Family History : Diabetes, breast cancer, colon cancer Personal/Social history : Past tobacco abuse, no recent EtOH intake, [employer] employee Admission Exam Per Admitting Provider Vital Signs (Past 24 Hours): Last Vital Signs Temp 37.0 C 09/16/18 20:58 Pulse 88 09/16/18 23:03 Resp 09/16/18 23:03 BP 147/87 H 09/16/18 23:03 Pulse Ox 96 09/16/18 23:03 Physical Exam: GENERAL: Slightly uncomfortable, obese , no respiratory distress SKIN: Normal color, warm HEENT: [place] palpebral conjunctivae, no ptosis, dry buccal mucosa NECK : Supple, no tenderness CHEST : CTA, no tenderness HEART : RRR, no obvious murmurs ABDOMEN: Some distention, epigastric tenderness, EXTREMITIES : No LE swelling/tenderness, no other conspicuous deformities noted NEUROLOGIC : Coherent, no facial asymmetry, no other gross focality Principal Diagnosis RECURRENT PANCREATITIS, FAMILIAL HYPERTRIGLYCERIDEMIA Discharge Exam Vital Signs (Past 24 Hours): Last Vital Signs Temp 36.5 C 09/19/18 07:09 Pulse 92 H 09/19/18 07:09 Resp 09/19/18 07:09 BP 123/86 09/19/18 07:09 Pulse Ox 95 09/19/18 07:09 Physical Exam: General- oriented x 3, not in distress, speaks in sentences with no effort or accessory muscle use Eyes- anicteric Neck- no JVD Lungs- clear BS BL no rales no wheezing Heart- normal rate, regular rhythm; no murmurs Abdomen- normal bowel sounds, nondistended, soft, nontender Extremities- no pretibial edema, no calf tenderness Neuro- alert, oriented x 3; no gross focal neurologic deficits Skin- warm & dry Discharge Data Allergies Allergy/AdvReac Type Severity Reaction Status Date / Time No Known Allergies Allergy Verified 09/16/18 22:28 Consultations 09/16/18 22:24 ED Decision to Admit Stat 09/17/18 00:48 Consult Gastroenterology Routine Hospital Course (1) Recurrent pancreatitis: hx 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 currently every 2 weeks choledochal cyst status post surgery -- placed on vigorous IV fluids, bowel rest GI consulted -- TG decreased from 19k to 2k Lipase increased from 1900s to 2200s, but patient clinically improved abdominal pain resolved, diet advanced significantly improved no GI symptoms Lipase normalized TG only 400s cleared for discharge by GI as well ff up with [facility] next week for usual apharesis 2x a week ff up with Gastro GI in 2-3 weeks ff up with PCP this 09/22 Sciatica, History of Disc Herniation -- patient experienced significant pain during admission -- Dilaudid 1mg IV q4h, Solumedrol IV one dose home dose of Gabapentin and Flexeril ordered much better continue usual PO meds continue ff up with Ortho as outpatient HTN -- stable continue usual meds Tachycardia -- sinus secondary to pain - resolved DM2 on oral meds well controlled as of recent outpatient hemoglobin A1c of 5.5 last April 2018 - a1c 7.3 needs better glycemic control 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 ff up chronic anemia Hg 11 monitor as outpatient DC home ff up with [facility] next week for usual apharesis 2x a week ff up with Gastro GI in 2-3 weeks ff up with PCP this 09/22 Total Time Total Time Spent Total Time Spent (In Minutes): 30 mins Discharge Plan Discharge Items Patient Disposition: Home - Self-Care Reason For Visit: PANCREATITIS Discharge Diagnosis: ACUTE PANCREATITIS Condition: Good Discharge Goals: Diagnostic testing and Therapeutic intervention Activity: As commented below Activity Comment: RESUME ACTIVITY GRADUALLY TOLERATED Lifting: Wait until after follow-up appointment Exercise/Sports: Wait until after follow-up appointment Driving/Machine Use Comment: NO DRIVING UNTIL RE-EVALUATED BY PRIMARY CARE PHYSICIAN Non-emergency contact: Primary Care Provider and Senior Clinical Data Coordinator Call non-emergency contact if: you have any medication questions, your symptoms worsen, your pain is not controlled, your pain is worsening, your pain is unusual for you, your pain is concerning for you and you have a fever Follow-up/Referrals: Ray Crane [Physician] - Kobi Beck DO [Primary Care Provider] - 09/22/18 2:45 pm Diet: Carb Consistent or DM2 and Heart Healthy Addtl Provider Instructions: PLEASE FOLLOW UP WITH THIS WEEK NOTED ABOVE. FOLLOW UP IN [facility] FOR YOUR USUAL APHARESIS SCHEDULE. FOLLOW UP WITH [facility]. CRANE IN 2 WEEKS. PLEASE CALL HIS OFFICE FOR AN APPOINTMENT. CONTACT INFORMATION NOTED ABOVE. DRINK PLENTY OF FLUIDS. ALWAYS TAKE ASPIRIN, DICLOFENAC WITH A FULL STOMACH. ADHERE STRICTLY TO DIABETIC DIET. Prescriptions: Continue atorvastatin 40 mg Tablet 40 mg PO HS RF: 0 niacin 1,000 mg Tablet Extended Release 24 Hr 1,000 mg PO HS RF: 0 aspirin 325 mg Tablet 325 mg PO HS RF: 0 gemfibrozil 600 mg Tablet 600 mg PO BID RF: 0 metformin 1,000 mg Tablet 1,000 mg PO BID RF: 0 losartan 25 mg Tablet 25 mg PO QPM RF: 0 gabapentin 300 mg Capsule 300 mg PO TID RF: 0 niacin 500 mg Capsule, Extended Release 500 mg PO HS RF: 0 diphenhydramine-acetaminophen [Tylenol PM Extra Strength] 25-500 mg Tablet 2 tab PO HS PRN (Reason: PAIN/SLEEP) RF: 0 omeprazole 20 mg Tablet,Delayed Release (Dr/Ec) 20 mg PO DAILY RF: 0 omega 0-jyd-ozq-fish oil 1,000 mg (120 mg-180 mg) Capsule 2,000 mg PO BID RF: 0 empagliflozin [Jardiance] 10 mg Tablet 10 mg PO QAM RF: 0 acetaminophen [Tylenol Extra Strength] 500 mg Tablet 1,000 mg PO DIRECTED PRN (Reason: Fever Or Pain) Qty: 0 RF: 0 diclofenac sodium 50 mg Tablet,Delayed Release (Dr/Ec) 50 mg PO TID Qty: 0 RF: 0 Visit Report Forms: My [facility] Portal Stand-Alone Forms: My [facility] Discharge Orders: Discharge Order (Routine); Ordered 09/19/18 Ordered By: Steve Amezcua Admission Data Admit Date/Time: 09/16/18 23:49 Attending Provider: Steve Amezcua Admit Provider: Lucius Nolan Primary Care Provider: Kobi Beck Other Providers: Vince Montalvo Service: Surgical Services Other Interventions: Discharge Summary Assessment (RN) Last Done: 09/19/18 12:53 DC Date/Time DO NOT enter until pt leaves facility: 09/19/18 13:17
--- NOTE | 2018-09-19 13:16 | Gastroenterology Progress Note ---
Addendum entered and electronically signed by Fredy Zambrano 09/19/18 13:25: Addendum (Blank) Addendum September 19, 2018 13:25 Original Note: Date of Service September 19, 2018 Assessment & Plan (1) Pancreatitis: Patient is ready for discharge. Would follow up with Dr. Art Crane and outpatient GI clinic sometime in the next few months. Continue outpatient plasmapheresis at current schedule. No plans for outpatient EUS at this time because he has had a thorough workup and the etiology has been determined to be hypertriglyceridemia Present on Admission?: Yes Supervising Physician Co-Signing Physician Notes Attending attestation I have seen, examined this patient, and agree with the findings and above by our mid-level provider MARTY Diaz. -Doing well, has known documented recurrent pancreatitis due to hypertriglyceridemia -No apparent complications, tolerating full diet -no pain -F/U plasmapharesis as well as with Dr. Ray Crane Subjective Mr. Jakob Wilhelm is a 37-year-old male with history of recurrent pancreatitis thought secondary to hyper triglyceridemia. He undergoes plasmapheresis at [place] every 2 weeks and has continued on that schedule. He was admitted on Wednesday afternoon for abdominal pain with findings consistent with pancreatitis. Lipase was 19,000 on arrival and is 200 today. LFTs have been normal. Constitutional: no fever, no sweats and no body aches Eyes: no eye pain no icterus Ear, Nose, Mouth, Throat: no dizziness Respiratory: no cough, no chest congestion, no dyspnea and no wheezing Cardiovascular: no chest pain, no dyspnea at rest and no palpitations Gastrointestinal: + abdominal pain (Resolved) and + nausea (Resolved); no bloating and no vomiting No jaundice Neurologic: no gait abnormality, no unsteadiness and no falls Psychiatric: no behavioral changes, no depression, no hopelessness and no difficulty concentrating Hematologic / Lymphatic: no easy bleeding and no lymphadenopathy Physical Exam 2 Vital Signs (Past 24 Hours): Last Vital Signs Temp 36.5 C 09/19/18 12:53 Pulse 92 H 09/19/18 12:53 Resp 18 09/19/18 12:53 BP 123/86 09/19/18 12:53 Pulse Ox 95 09/19/18 12:53 Eyes: PERRL, conjunctivae normal, anicteric sclerae ENMT: external ear and nose normal, oropharynx normal Neck: trachea midline, no thyromegaly Respiratory: normal respiratory effort, lungs clear to auscultation Cardiovascular: RRR, no murmur, no edema Vessels: no JVD Extremities: no edema Gastrointestinal (Abdomen): normal bowel sounds, soft, nontender, no hepatosplenomegaly Skin: no rashes, warm and dry Neurologic: PERRL, EOMI, accommodation nl, no face palsy, no dysarthria Psychiatric: A+Ox3, euthymic affect Results & Data Laboratory Results See HPI _ (1) Pancreatitis Acute pancreatitis complication: Chronicity: Pancreatitis type:
== END 2018-09-19 13:17 | disposition home or self-care (01) | DRG 440 ==
LOC: ED 20:56 → 3N 23:49
DX: Z98.890 Other specified postprocedural states; D64.9 Anemia, unspecified; Z87.891 Personal history of nicotine dependence; Z80.3 Family history of malignant neoplasm of breast; R00.0 Tachycardia, unspecified; E78.1 Pure hyperglyceridemia; Z80.0 Family history of malignant neoplasm of digestive organs; Z87.19 Personal history of other diseases of the digestive system; Z90.49 Acquired absence of other specified parts of digestive tract; Z79.899 Other long term (current) drug therapy; M54.40 Lumbago with sciatica, unspecified side; Z83.3 Family history of diabetes mellitus; K86.1 Other chronic pancreatitis; E11.9 Type 2 diabetes mellitus without complications; Z79.82 Long term (current) use of aspirin; Z79.84 Long term (current) use of oral hypoglycemic drugs; E78.3 Hyperchylomicronemia; Z51.81 Encounter for therapeutic drug level monitoring

== ENCOUNTER 2019-02-13 17:44 | Inpatient (IN) ==
--- OUTSIDE RECORDS SUMMARY | 2019-02-13 17:46 | External Medical Summary | Continuity of Care Document ---
:1980 Author Name Quang Gooden Address Unavailable Unavailable , Care Team Providers Name Role Phone Case Moises GRIFFITH Unavailable [email or web address] [email or web address], [email or web address] Unavailable Unavailable Problems Active medical history not documented Allergies and Adverse Reactions Allergy history not documented Medications Medications not documented Procedures Procedures not documented Immunizations Immunizations not documented Plan of Treatment Planned Observations Planned Goals not documented Results No Known Results Results not documented
[2019-02-13] MEDS ORDERED: MoRPHine SULFATE 4 MG/ML 1 ML CARP\\VIAL IV STA ×2 (19:41→21:22)
[2019-02-13] MEDS ORDERED: ONDANSETRON INJ 2 MG/ML 2 ML VIAL IV STA (19:41)
[2019-02-13] MEDS ORDERED: SODIUM CHLORIDE 0.9% 1000ML 1,000 ML IV SCH (19:45)
[2019-02-13 19:53] LABS: Basophils # (auto) 0.03 K/uL (0-0.2); Basophils % (auto) 0.2 %; Eosinophils # (auto) 0.07 K/uL (0-0.5); Eosinophils % (auto) 0.4 %; Hematocrit (blood only) 41.2 % (42-52); Hemoglobin 15.2 g/dL (14.0-18.0); Immature Granulocytes # (auto) 0.11 K/uL (0.00-0.02); Immature Granulocytes % (auto) 0.7 %; Lymphocytes # (auto) 1.61 K/uL (1.2-3.4); Lymphocytes % (auto) 10.3 %; Mean Corpuscular Hgb Conc 36.9 g/dL (32-36); Mean Corpuscular Volume 76.2 fL (80-100); Mean Platelet Volume 9.6 fL (7.4-10.4); Monocytes # (auto) 0.94 K/uL (0.11-0.59); Neutrophils # (auto) 12.91 K/uL (1.4-6.5); Neutrophils % (auto) 82.4 %; Platelet Count 275 K/uL (130-400); RDW Standard Deviation 43.6 fL (36.4-46.3); Red Blood Count 5.41 M/uL (4.7-6.1); White Blood Count 15.67 K/uL (4.8-10.8)
[2019-02-13] MEDS ORDERED: KETOROLAC TROMETHAMINE 15 MG/ML VIAL IV STA (21:22)
[2019-02-13 21:32] LABS: Appearance Urine Clear (Clear); Bacteria Urine Automated Negative (Negative); Bilirubin Urine Negative (Negative); Blood Urine Negative (Negative); Cast Urine Automated 0 /lpf (0-5); Color Urine Yellow; Glucose Urine UA 3+ (Negative); Ketones Urine 1+ (Negative); Leukocyte Esterase Urine Negative (Negative); Nitrite Urine Negative (Negative); Protein Urine 2+ (Negative); RBC Urine Automated 0-4 /hpf (0-4); Specific Gravity Urine 1.038 (1.000-1.030); Urobilinogen Urine Negative (Negative); pH Urine 6.5 (4.5-7.5)
[2019-02-13 21:34] LABS: Alanine Aminotransferase 29 U/L (12-78); Albumin Level 4.2 gm/dl (3.4-5.0); Alkaline Phosphatase 91 U/L (45-117); Bilirubin,Total 0.5 mg/dl (0.2-1); Blood Urea Nitrogen 13 mg/dl (7-18); Calcium 9.6 mg/dl (8.5-10.1); Carbon Dioxide 23 mmol/L (21-32); Chloride 107 mmol/L (98-107); Creatinine Clr Calc Pharmacy 133.8 ml/min; Est GFR (African American) 117.2; Est GFR (Non-African American) 101.1; Globulin 3.5 gm/dl (2.5-4.0); Glucose 144 mg/dl (70-99); Sodium 141 mmol/L (136-145); Total Protein 7.7 gm/dl (6.4-8.2); Troponin I < 0.015 ng/ml (0-0.045)
[2019-02-13 21:44] LABS: Triglycerides 2130 mg/dl (0-150)
[2019-02-13 21:45] LABS: Albumin Globulin Ratio 1.2 (0.9-2); BUN Creatinine Ratio 13.2 (10-20)
[2019-02-13] MEDS ORDERED: SODIUM CHLORIDE 0.9% 1000ML 1,000 ML IV ONE (21:45)
[2019-02-13 21:58] LABS: Aspartate Aminotransferase 15 U/L (15-37); Potassium 3.7 mmol/L (3.5-5.1)
--- NOTE | 2019-02-13 22:12 | Emergency Department Note ---
Entered by Albertina Tom acting as a scribe for Tobin Masters M.D. History of Present Illness General Chief complaint: Abdominal Pain Stated complaint: BACK PAIN, ABDOMINAL PAIN Source: patient History of Present Illness Onset (ago): unknown (last night) Location: abdomen Radiation: back Pain Consistency: + constant Maximum Pain Intensity: 5 Associated symptoms: + denies other symptoms (diarrhea) and + nausea/vomiting The patient is a 38 year old male who presents to the Emergency Room with complaints of constant upper abdominal pain that started last night. He rates his pain a 5/10 in severity. He notes the pain radiates to his back. He reports associated nausea and vomiting. He denies diarrhea. The patient states he has a history of pancreatitis. He notes his last apheresis was 5 days ago. Home Medications Home Medications Medication Instructions Recorded Confirmed Type Jardiance 10 mg PO QAM 09/16/18 02/13/19 History aspirin 325 mg PO HS 09/16/18 02/13/19 History atorvastatin 40 mg PO HS 09/16/18 02/13/19 History diphenhydramine-acetaminophen 2 tab PO HS PRN 09/16/18 02/13/19 History [Tylenol PM Extra Strength] gabapentin 300 mg PO TID 09/16/18 02/13/19 History losartan 25 mg PO QPM 09/16/18 02/13/19 History metformin 1,000 mg PO BIDM 09/16/18 02/13/19 History niacin 1,000 mg PO HS 09/16/18 02/13/19 History niacin 500 mg PO HS 09/16/18 02/13/19 History omega 4-uha-cgd-fish oil 2,000 mg PO BID 09/16/18 02/13/19 History omeprazole 20 mg PO DAILY 09/16/18 02/13/19 History acetaminophen [Tylenol Extra 1,000 mg PO DIRECTED PRN #0 tab 09/19/18 02/13/19 Rx Strength] diclofenac sodium 50 mg PO TID #0 tab 09/19/18 02/13/19 Rx duloxetine 30 mg PO DAILY 02/13/19 02/13/19 History fenofibrate nanocrystallized 145 mg PO DAILY 02/13/19 02/13/19 History gabapentin 600 mg PO TID 02/13/19 02/13/19 History Allergies Allergy/AdvReac Type Severity Reaction Status Date / Time No Known Allergies Allergy Verified 02/13/19 20:26 Past Med/Surg History Medical History Pancreatitis (Acute) Surgical History History of cholecystectomy Social History Preferred Language: Korean Communication Ability: Effective Beliefs That Will Affect Care: None Current Living Situation: Family Feels Safe at Home: Yes Smoking Status: Former smoker Tobacco Type: cigarettes Second Hand Exposure: No Hx Alcohol Use: Yes Alcohol type: wine Hx Substance Use: No Review of Systems See HPI for pertinent positives & negatives. and A total of 10 systems reviewed and were otherwise negative Physical Exam Vital Signs Vital Signs - 24 hr 02/13/19 17:49 02/13/19 19:41 02/13/19 19:53 Temperature 37.5 C Temperature Source Oral Sepsis Recent Fever Within 48 Hours No Sepsis New/Unexplained Change in Mental Status No Sepsis Action Taken by Nursing No Action Required Pulse Rate 88 Pulse Rate [Left Finger] 86 Pulse Rhythm Regular Pulse Strength Normal Respiratory Rate 20 18 Respiratory Effort / Characteristics Non-Labored Spontaneous Respiratory Depth Normal Respiratory Pattern Regular Blood Pressure 156/89 H Blood Pressure [Left Arm] 136/83 Blood Pressure Mean 111 Blood Pressure Mean [Left Arm] 100 Blood Pressure Position Sitting Pulse Oximetry 99 94 99 Oxygen Delivery Method Room Air Room Air Room Air 02/13/19 20:11 02/13/19 21:06 02/13/19 21:49 Temperature Temperature Source Sepsis Recent Fever Within 48 Hours Sepsis New/Unexplained Change in Mental Status Sepsis Action Taken by Nursing Pulse Rate Pulse Rate [Left Finger] 80 92 H 101 H Pulse Rhythm Pulse Strength Respiratory Rate 18 18 18 Respiratory Effort / Characteristics Respiratory Depth Respiratory Pattern Blood Pressure Blood Pressure [Left Arm] 137/67 135/75 139/86 Blood Pressure Mean Blood Pressure Mean [Left Arm] 90 95 103 Blood Pressure Position Pulse Oximetry 94 100 100 Oxygen Delivery Method Room Air GENERAL: Awake, alert, uncomfortable appearing, in no distress HENT: Normocephalic, atraumatic. Oropharynx unremarkable. EYES: Normal conjunctiva. Sclera non-icteric. NECK: Supple. No nuchal rigidity. RESPIRATORY: Clear to auscultation. No wheezes. Normal respiratory effort. CARDIAC: Normal rate. Normal rhythm. Extremities warm and well perfused. GI: Soft, non-distended. Minimal epigastric tenderness. No rebound or guarding. No masses. RECTAL: Deferred. MUSCULOSKELETAL: Atraumatic. Chest examination reveals no tenderness. There is no CVA tenderness to palpation. LOWER EXTREMITIES: Calves are equal size bilaterally and non-tender. No edema NEURO: Normal sensorium. No sensory or motor deficits noted. No facial droop. SKIN: Warm and dry. No rash or jaundice noted. Course 1936: The patient was evaluated in room C10. A complete history and physical exam was performed. 2149: [facility] He agrees to evaluate the patient for further management. 2154: I updated the patient on his results. He is in agreement with the treatment plan. Consultations Consultation #1: I [facility] the [facility] He agrees to evaluate the patient for further management. Time: 21:50 Administered Medications Sodium Chloride (Nss 1000ml) 1,000 mls @ 999 mls/hr IV .Q1H1M ONE Stop: 02/13/19 22:45 Last Admin: 02/13/19 21:50 Dose: 999 mls/hr Documented by: [id number] Discontinued Medications Sodium Chloride (Nss 1000ml) 1,000 mls @ 999 mls/hr IV .Q1H1M ROZINA Stop: 02/13/19 20:45 Last Infusion: 02/13/19 20:58 Dose: 0 mls/hr Documented by: [id number] Admin: 02/13/19 19:50 Dose: 999 mls/hr Documented by: [id number] Ketorolac Tromethamine (Toradol) 15 mg IV NOW STA Stop: 02/13/19 21:23 Last Admin: 02/13/19 21:35 Dose: 15 mg Documented by: [id number] Morphine Sulfate (Morphine Sulfate) 4 mg IV NOW STA Stop: 02/13/19 19:42 Last Admin: 02/13/19 19:50 Dose: 4 mg Documented by: [id number] Morphine Sulfate (Morphine Sulfate) 4 mg IV NOW STA Stop: 02/13/19 21:23 Last Admin: 02/13/19 21:35 Dose: 4 mg Documented by: [id number] Ondansetron HCl (Zofran) 4 mg IV NOW STA Stop: 02/13/19 19:42 Last Admin: 02/13/19 19:50 Dose: 4 mg Documented by: [id number] Medical Decision Making Differential Diagnosis Etiologies such as appendicitis, diverticulitis, PUD, biliary pathology, UTI, pancreatitis, obstruction, mesenteric ischemia, aortic pathology, infections, inflammatory bowel disease, renal colic, as well as others were entertained. Medical Records Attestation: I reviewed the patient's medical records. Home Medications Current Medication List: was personally reviewed by me Laboratory Data Attestation: I reviewed the patient's lab results. Result diagrams: 02/13/19 19:44 02/13/19 19:44 Lab Results 02/13/19 02/13/19 02/13/19 Range/Units 19:44 19:44 21:18 WBC 15.67 H (4.8-10.8) K/uL RBC 5.41 (4.7-6.1) M/uL Hgb 15.2 (14.0-18.0) g/dL Hct 41.2 L (42-52) % MCV 76.2 L (80-100) fL MCH 28.1 (25-34) pg MCHC 36.9 H (32-36) g/dL RDW Std Deviation 43.6 (36.4-46.3) fL RDW Coeff of Aiyana 16.0 H (11.5-14.5) % Plt Count 275 (130-400) K/uL MPV 9.6 (7.4-10.4) fL Immature Gran % (Auto) 0.7 % Neut % (Auto) 82.4 % Lymph % (Auto) 10.3 % Caroline % (Auto) 6.0 % Eos % (Auto) 0.4 % Baso % (Auto) 0.2 % Immature Gran # (Auto) 0.11 H (0.00-0.02) K/uL Neut # (Auto) 12.91 H (1.4-6.5) K/uL Lymph # (Auto) 1.61 (1.2-3.4) K/uL Caroline # (Auto) 0.94 H (0.11-0.59) K/uL Eos # (Auto) 0.07 (0-0.5) K/uL Baso # (Auto) 0.03 (0-0.2) K/uL Sodium 141 (136-145) mmol/L Potassium 3.7 (3.5-5.1) mmol/L Chloride 107 (98-107) mmol/L Carbon Dioxide 23 (21-32) mmol/L Anion Gap 11.0 (3-11) BUN 13 (7-18) mg/dl Creatinine 0.95 (0.6-1.4) mg/dl Est Cr Clr Drug Dosing 133.8 ml/min Est GFR ( Amer) 117.2 Est GFR (Non-Af Amer) 101.1 BUN/Creatinine Ratio 13.2 (10-20) Glucose 144 H (70-99) mg/dl Calcium 9.6 (8.5-10.1) mg/dl Total Bilirubin 0.5 (0.2-1) mg/dl AST 15 (15-37) U/L ALT 29 (12-78) U/L Alkaline Phosphatase 91 (45-117) U/L Troponin I < 0.015 (0-0.045) ng/ml Total Protein 7.7 (6.4-8.2) gm/dl Albumin 4.2 (3.4-5.0) gm/dl Globulin 3.5 (2.5-4.0) gm/dl Albumin/Globulin Ratio 1.2 (0.9-2) Triglycerides 2130 H (0-150) mg/dl Lipase 9137 H (73-393) U/L Urine Color Yellow Urine Appearance Clear (Clear) Urine pH 6.5 (4.5-7.5) Ur Specific [address] [place] 1.038 H (1.000-1.030) Urine Protein 2+ H (Negative) Urine Glucose (UA) 3+ H (Negative) Urine Ketones 1+ H (Negative) Urine Blood Negative (Negative) Urine Nitrite Negative (Negative) Urine Bilirubin Negative (Negative) Urine Urobilinogen Negative (Negative) Ur Leukocyte Esterase Negative (Negative) Urine WBC (Auto) 1-5 (0-5) /hpf Urine RBC (Auto) 0-4 (0-4) /hpf U Hyaline Cast (Auto) 0 (0-5) /lpf U Epithel Cells (Auto) 10-20 H (0-5) /lpf Urine Bacteria (Auto) Negative (Negative) ECG Data Attestation: I personally reviewed and interpreted this ECG as follows: Indication: abdominal pain Rate (beats per minute): 85 Rhythm: normal sinus Findings: no PVC, no ST depression and no ST elevation Blood Pressure Blood Pressure Findings: Elevated blood pressure Blood Pressure Disposition: further management by hospitalist CAMI Narrative Patient is a 38-year-old gentleman history of hyperlipidemia familiarity with a history of pancreatitis presenting today complaining of epigastric and back pain with associated nausea. Denies any trauma. Patient compliance with a pheresis approximately 5 days ago the last occurrence. Unsure of what caused pain started last night. Denies significant cardiac history. EKG and troponin were sent. Basic labs are completed including lipase. Given pain and nausea control as well as some IV fluids. Notable have leukocytosis here. Patient's pain improved with morphine and Toradol here. Nausea improved with Zofran. Do not believe this represents acute cholecystitis or appendicitis. Lipase elevation of 9000 consistent with acute appendicitis. No significant bilirubin elevation or evidence of hepatitis. Discussed with the patient whose pain is feeling improved at this time. Given his clinical history offered admission. Do not be lieve an additional CT scanning at this time. Patient stated he wished to stay which I believe is in his best interest. Hospitalist contacted. Triglycerides are elevated today. Impression & Plan Acute pancreatitis Discharge Plan Visit Data Chief Complaint: Abdominal Pain Stated Complaint: BACK PAIN, ABDOMINAL PAIN ED Provider: Tobin Masters Discharge Problem: Acute pancreatitis Patient Disposition: Being Evaluated by Hospitalist Forms Stand Alone Forms: Call Back Authorization, My [facility] Prescriptions Prescriptions: No Action gabapentin 600 mg Tablet 600 mg PO TID RF: 0 duloxetine 30 mg Capsule,Delayed Release(Dr/Ec) 30 mg PO DAILY RF: 0 fenofibrate nanocrystallized 145 mg Tablet 145 mg PO DAILY RF: 0 atorvastatin 40 mg Tablet 40 mg PO HS RF: 0 niacin 1,000 mg Tablet Extended Release 24 Hr 1,000 mg PO HS RF: 0 aspirin 325 mg Tablet 325 mg PO HS RF: 0 metformin 1,000 mg Tablet 1,000 mg PO BIDM RF: 0 losartan 25 mg Tablet 25 mg PO QPM RF: 0 gabapentin 300 mg Capsule 300 mg PO TID RF: 0 niacin 500 mg Capsule, Extended Release 500 mg PO HS RF: 0 diphenhydramine-acetaminophen [Tylenol PM Extra Strength] 25-500 mg Tablet 2 tab PO HS PRN (Reason: PAIN/SLEEP) RF: 0 omeprazole 20 mg Tablet,Delayed Release (Dr/Ec) 20 mg PO DAILY RF: 0 omega 5-mlf-xwr-fish oil 1,000 mg (120 mg-180 mg) Capsule 2,000 mg PO BID RF: 0 Jardiance 10 mg Tablet 10 mg PO QAM RF: 0 acetaminophen [Tylenol Extra Strength] 500 mg Tablet 1,000 mg PO DIRECTED PRN (Reason: Fever Or Pain) Qty: 0 RF: 0 diclofenac sodium 50 mg Tablet,Delayed Release (Dr/Ec) 50 mg PO TID Qty: 0 RF: 0 Referrals Referrals: Kobi Beck DO [Primary Care Provider] - Discharge Problem: Acute pancreatitis Qualifiers: Pancreatitis type: unspecified pancreatitis type Acute pancreatitis complication: unspecified Qualified Code(s): K85.90 - Acute pancreatitis without necrosis or infection, unspecified The scribe's documentation has been prepared under my direction and personally reviewed by me in its entirety. I confirm that the note above accurately reflects all work, treatment, procedures, and medical decision making performed by me.
[2019-02-13] MEDS ORDERED: ONDANSETRON INJ 2 MG/ML 2 ML VIAL IV PRN (23:06)
[2019-02-13] MEDS ORDERED: ACETAMINOPHEN 325 MG TAB PO PRN (23:06)
[2019-02-13] MEDS ORDERED: Nursing to Pharmacy Communication ONE (23:13)
[2019-02-13] MEDS ORDERED: DEXTROSE 50% 50 ML SYRINGE IV PRN (23:15)
[2019-02-13] MEDS ORDERED: CARBOHYDRATES FOR HYPOGLYCEMIA PO PRN (23:15)
[2019-02-13] MEDS ORDERED: GLUCAGON FOR INJ 1 MG VIAL IM PRN (23:15)
[2019-02-13] MEDS ORDERED: GLUCOSE 40% GEL 15 GM TUBE PO PRN (23:15)
[2019-02-13] MEDS ORDERED: GLUCOSE 10 TABS/TUBE PO PRN (23:15)
[2019-02-13] MEDS: LACTATED RINGER'S 1,000 ML IV SCH (23:27)
[2019-02-13] MEDS: INSULIN ASPART 100 UNITS/ML 3 ML PEN SC SCH (23:57)
--- NOTE | 2019-02-14 01:02 | History and Physical Report ---
DATE OF ADMISSION: 02/13/2019 CHIEF COMPLAINT: Severe abdominal pain. 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 The patient's last episode of pancreatitis was in August, comes again with abdominal pain starting yesterday, in the middle of abdomen going to back, severe in nature, also has some nausea. Since the pain started, he is constipated and not eating much. Denies any chest pain, no shortness of breath, no cough, no fever, no chills, no headache, no blurred vision, no earache, no runny nose, no sore throat, no difficulty swallowing. No rash. Currently resting comfortably and hemodynamically stable. The patient had apheresis done on 02/08/2019 at [facility]. ALLERGIES: No known drug allergies. PAST MEDICAL HISTORY: As mentioned above. PAST SURGICAL HISTORY: EGD with endoscopic ultrasound, excision of a choledochal cyst, lumbar spine injection, resection of the bile duct with fusion, Whipple's procedure, tonsillectomy and adenoidectomy. MEDICATIONS: The patient is on Cymbalta 30 mg p.o. daily, niacin ER 1000 mg p.o. at bedtime, niacin ER 500 mg p.o. daily, gabapentin 900 mg p.o. t.i.d., fenofibrate 145 mg daily, diclofenac sodium 50 mg p.o. t.i.d., omega 3 fatty 1 gram 4 capsules daily with food, Jardiance 5 mg p.o. daily, omeprazole 20 mg p.o. daily, losartan 25 mg p.o. daily, metformin 1000 mg p.o. b.i.d., atorvastatin 40 mg p.o. daily, aspirin 325 mg p.o. daily. FAMILY HISTORY: Significant for brother has kidney stones. Mother has glaucoma. Father has diabetes. Paternal grandfather has colon cancer and diabetes. Maternal grandfather has diabetes and maternal grandmother has also diabetes and breast cancer. SOCIAL HISTORY: Single, former smoker, quit in 2006, smoked one-third pack a day for 17 years. No alcohol use, no drug use. REVIEW OF SYMPTOMS: As per HPI. Rest of review of symptoms negative. PHYSICAL EXAMINATION: GENERAL: The patient is obese, not in acute distress. VITAL SIGNS: Temperature 37.5, pulse 101, respiratory rate 18, blood pressure 113/86, oxygen 100% room air. HEENT: No pallor, no icterus. Pupils equal, round, and reactive to light. NECK: No JVD or neck masses, no carotid bruits. CARDIOVASCULAR: S1, S2 heard, regular rate and rhythm, no murmur, no gallop. RESPIRATORY SYSTEM: Normal AP diameter. No accessory muscle use. No wheezing, no crackles. ABDOMEN: Soft, bowel sounds present. Mild abdominal tenderness in the epigastric region. No guarding, no rigidity. No distention. CENTRAL NERVOUS SYSTEM: Cranial nerves II-XII grossly intact. Nonfocal. EXTREMITIES: No edema, no erythema. LABS: WBC 15.6, hemoglobin 15.2, hematocrit 41.2, platelets 275. Sodium 141, potassium 3.7, chloride 107, bicarbonate 23, BUN 13, creatinine 0.9, serum glucose 144, calcium 9.6, total bilirubin 0.5, AST 15, ALT 29, alkaline phosphatase 91. Troponin I less than 0.015. Triglycerides 2130, lipase 9137. Urinalysis positive for glucose, protein and ketones. EKG: Shows normal sinus rhythm with rate of 85, no significant change from previous EKG. ASSESSMENT AND PLAN: This is a 38-year-old male with history of recurrent pancreatitis, presents with abdominal pain and found to have elevated lipase. 1. 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 Triglycerides greater than 2000. We will treat with aggressive IV fluids with ringer lactate 200 mL per hour, IV Dilaudid p.r.n., IV Zofran p.r.n. Monitor in the medical floor. Repeat lipase in a.m. Consult GI in a.m. 2. Security-[place]field type V hyperlipoproteinemia. He gets apheresis every 2 weeks, last was on 02/08/2019. Follows with Cardiology, on full-dose aspirin, statin, and niacin, omega 3 fatty acid which we will continue. Needs close followup. 3. History of diabetes. Hold metformin and Jardiance. Insulin sliding scale Follow hemoglobin A1c levels. The patient currently n.p.o. 4. Gastroesophageal reflux disease. Continue Prilosec. 5. Hypertension. Continue Cozaar.Will monitor 6. Chronic back pain. We will hold his diclofenac sodium. Tylenol p.r.n. and currently getting also Dilaudid p.r.n. Continue gabapentin. 7. Deep venous thrombosis prophylaxis, SCDs for now. 8. Disposition: Admit to med/surg. Level 1, full code. MTDD
[2019-02-14] MEDS: HYDROmorphone INJ 0.5 MG/0.5 ML SYR IV PRN ×4 (02:21→19:40)
[2019-02-14] MEDS: LACTATED RINGER'S 1,000 ML IV SCH ×5 (03:50→23:32)
[2019-02-14 06:11] LABS: Basophils # (auto) 0.02 K/uL (0-0.2); Basophils % (auto) 0.2 %; Eosinophils # (auto) 0.08 K/uL (0-0.5); Eosinophils % (auto) 0.7 %; Hemoglobin 12.4 g/dL (14.0-18.0); Immature Granulocytes # (auto) 0.03 K/uL (0.00-0.02); Immature Granulocytes % (auto) 0.2 %; Lymphocytes # (auto) 1.52 K/uL (1.2-3.4); Lymphocytes % (auto) 12.4 %; Mean Corpuscular Hgb Conc 34.4 g/dL (32-36); Mean Corpuscular Volume 75.8 fL (80-100); Mean Platelet Volume 9.1 fL (7.4-10.4); Monocytes # (auto) 0.94 K/uL (0.11-0.59); Monocytes % (auto) 7.7 %; Neutrophils # (auto) 9.62 K/uL (1.4-6.5); Neutrophils % (auto) 78.8 %; Platelet Count 181 K/uL (130-400); Red Blood Count 4.75 M/uL (4.7-6.1); White Blood Count 12.21 K/uL (4.8-10.8)
[2019-02-14 06:40] LABS: Estimated Average Glucose 146 mg/dl; Hemoglobin A1C 6.7 % (4.5-5.6)
[2019-02-14] MEDS: INSULIN ASPART 100 UNITS/ML 3 ML PEN SC SCH ×4 (06:42→21:26)
[2019-02-14 06:48] LABS: BUN Creatinine Ratio 12.1 (10-20); Calcium 8.1 mg/dl (8.5-10.1); Est GFR (African American) 130.7; Est GFR (Non-African American) 112.7; Magnesium 1.8 mg/dl (1.8-2.4); Potassium 3.7 mmol/L (3.5-5.1)
[2019-02-14 06:51] LABS: Chol HDL Ratio 4; Cholesterol 76 mg/dl (0-200); HDL Cholesterol 18 mg/dl; Triglycerides 823 mg/dl (0-150)
[2019-02-14] MEDS: DULOXETINE HCL 30 MG CAP PO SCH (08:41)
[2019-02-14] MEDS: GABAPENTIN 300 MG CAP PO SCH ×3 (08:42→21:18)
[2019-02-14] MEDS: PANTOprazole 40 MG TAB PO SCH (08:42)
[2019-02-14] MEDS: GABAPENTIN 600 MG TAB PO SCH ×3 (08:42→21:18)
[2019-02-14] MEDS: FENOFIBRATE NANOCRYSTALLIZED 145 MG TABLET PO SCH (08:43)
[2019-02-14] MEDS ORDERED: OMEGA-3 (PURIFIED FISH OIL) 1 GM CAP PO SCH (09:00)
--- NOTE | 2019-02-14 11:44 | Gastrointestinal Consultation ---
Date of Consultation February 14, 2019 Assessment & Plan (1) Recurrent pancreatitis: Pt is a 38 y/o male currently admitted w recurrent pancreatitis. Hx of hypertriglyceridemia, Grover type V hyperlipoproteinemia, s/p cholecystectomy, choledochal cyst s/p Whipple's procedure, bile duct resection and hepaticojejunostomy creation. Reports been compliant w outpt meds, denies ETOH, tobacco, herbal supplements. Been getting apheresis [place] [facility] [place] [address] Sidhu (Cardiology) most recently. - KUB to r/o constipation - LR @200ml/hr - Will try CL diet this afternoon if continues to do well - Symptomatic management otherwise - Last abd CT scan done 01/19/19 at [facility]. Will defer repeat CT scan at this time. He does have a pancreas tail lesion 1.8cm and had been scheduled for EUS eval on 03/06/19. In light of his recurrent pancreatitis will need to postpone this till about 4-6 weeks from today - F/U w Cardiology upon DC for continue management of dyslipidemia Supervising Physician Co-Signing Physician Notes I have seen and examined the patient with MARTY Ness. 38 yo male with a history of hypertriglyceridemia followed in [place] for apheresis approximately 2 weeks (last one done in [place] on 02/08/19). She is s/p lap valeria and prior Whipple. Admitted with abd pain- diagnosed with acute pancreatitis based on pain and lipase elevation. Prior imaging as an outpatient showed ? pseudocyst. Pain improved with IV LR overnite. PE - no acute distress, perrla, no scleral icterus, normal excursion of lungs, abd soft nt nd +bs Labs reviewed Continue IV LR, cld - advance as tolerated. Discussed potentially changing frequency of apheresis to q7-10 days- he will think about this. Outpatient EUS in 6-8 weeks. History of Present Illness Reason for Consultation: Pancreatitis Requesting Physician: Dr. Jami Velasquez Attending Physician: Dr. Ana Molina History of Present Illness Pt is a 38 male w hx of Grover type V hyperlipoproteinemia, hypertriglyc eridemia, s/p cholecystectomy, choledochal cyst s/p Whipple's procedure, bile duct resection and hepaticojejunostomy creation. He presented to ED yesterday w c/o RUQ abd pain radiating to back, nausea, feeling constipated. Denies any fever, chills, CP, SOB. Upon evaluation noted to have Lipase up to 9000s -> 2000s today. Triglyceride level 2130. LFTs are normal. He was admitted overnight for pancreatitis, been NPO, resuscitated w IVF Lactated Ringer. He's been getting apheresis at [facility] every 2 weeks, last session 02/08/19. Also denies any changes to his outpt meds including statins, Niacin, [place] 3, Fenofibrate. Denies any tobacco products or ETOH. Last abdominal imaging done via [facility] system: CT abd/pelvis w contrast 01/19/19 Stable hypoattenuating lesion in the pancreatic tail 1.8 cm, which may reflect a complex pseudocyst or pancreatic cystic neoplasm. EUS had been scheduled on 03/06/19 for further evaluation. Allergies Allergy/AdvReac Type Severity Reaction Status Date / Time No Known Allergies Allergy Verified 02/13/19 20:26 Home Medications Home Medications Medication Instructions Recorded Confirmed Type Jardiance 10 mg PO QAM 09/16/18 02/13/19 History aspirin 325 mg PO HS 09/16/18 02/13/19 History atorvastatin 40 mg PO HS 09/16/18 02/13/19 History diphenhydramine-acetaminophen 2 tab PO HS PRN 09/16/18 02/13/19 History [Tylenol PM Extra Strength] gabapentin 300 mg PO TID 09/16/18 02/13/19 History losartan 25 mg PO QPM 09/16/18 02/13/19 History metformin 1,000 mg PO BIDM 09/16/18 02/13/19 History niacin 1,000 mg PO HS 09/16/18 02/13/19 History niacin 500 mg PO HS 09/16/18 02/13/19 History omega 5-kea-uxa-fish oil 2,000 mg PO BID 09/16/18 02/13/19 History omeprazole 20 mg PO DAILY 09/16/18 02/13/19 History acetaminophen [Tylenol Extra 1,000 mg PO DIRECTED PRN #0 tab 09/19/18 02/13/19 Rx Strength] diclofenac sodium 50 mg PO TID #0 tab 09/19/18 02/13/19 Rx duloxetine 30 mg PO DAILY 02/13/19 02/13/19 History fenofibrate nanocrystallized 145 mg PO DAILY 02/13/19 02/13/19 History gabapentin 600 mg PO TID 02/13/19 02/13/19 History Patient History Medical History Pancreatitis (Acute) Surgical History History of cholecystectomy Social History Preferred Language: Palestinian Communication Ability: Effective [employer] Head Required: No Beliefs That Will Affect Care: None Current Living Situation: Parent Current Living Situation Comment: both parents Feels Safe at Home: Yes Safety Concerns: Feels Safe At This Time Smoking Status: Former smoker Tobacco Type: cigarettes Second Hand Exposure: No Hx Alcohol Use: No Hx Substance Use: No Review of Systems Review of Systems: All systems reviewed & are unremarkable except as noted in HPI & below Physical Exam Constitutional: WD/WN, vitals as above well groomed, cooperative and comfortable Eyes: PERRL, conjunctivae normal, anicteric sclerae ENMT: external ear and nose normal, oropharynx normal Respiratory: normal respiratory effort, lungs clear to auscultation Cardiovascular: RRR, no murmur, no edema Gastrointestinal (Abdomen): normal bowel sounds, soft, nontender, no hepatosplenomegaly Skin: no rashes, warm and dry no jaundice Neurologic: Motor/Sensory: no asterixis Psychiatric: A+Ox3, euthymic affect Lymphatic: no lymphedema Results & Data Vital Signs (Past 12 Hours) Vital Signs Laboratory Results - last 72 hr 02/13/19 02/13/19 02/13/19 19:44 19:44 21:18 WBC 15.67 H RBC 5.41 Hgb 15.2 Hct 41.2 L MCV 76.2 L MCH 28.1 MCHC 36.9 H RDW Std Deviation 43.6 RDW Coeff of Aiyana 16.0 H Plt Count 275 MPV 9.6 Immature Gran % (Auto) 0.7 Neut % (Auto) 82.4 Lymph % (Auto) 10.3 Loving % (Auto) 6.0 Eos % (Auto) 0.4 Baso % (Auto) 0.2 Immature Gran # (Auto) 0.11 H Neut # (Auto) 12.91 H Lymph # (Auto) 1.61 Loving # (Auto) 0.94 H Eos # (Auto) 0.07 Baso # (Auto) 0.03 Sodium 141 Potassium 3.7 Chloride 107 Carbon Dioxide 23 Anion Gap 11.0 BUN 13 Creatinine 0.95 Est Cr Clr Drug Dosing 133.8 Est GFR ( Amer) 117.2 Est GFR (Non-Af Amer) 101.1 BUN/Creatinine Ratio 13.2 Glucose 144 H POC Glucose Estimat Average Glucose Hemoglobin A1c Calcium 9.6 Magnesium Total Bilirubin 0.5 AST 15 ALT 29 Alkaline Phosphatase 91 Troponin I < 0.015 Total Protein 7.7 Albumin 4.2 Globulin 3.5 Albumin/Globulin Ratio 1.2 Triglycerides 2130 H Cholesterol LDL Cholesterol, Calc VLDL Cholesterol, Calc HDL Cholesterol Cholesterol/HDL Ratio Lipase 9137 H Urine Color Yellow Urine Appearance Clear Urine pH 6.5 Ur Specific [place] 1.038 H Urine Protein 2+ H Urine Glucose (UA) 3+ H Urine Ketones 1+ H Urine Blood Negative Urine Nitrite Negative Urine Bilirubin Negative Urine Urobilinogen Negative Ur Leukocyte Esterase Negative Urine WBC (Auto) 1-5 Urine RBC (Auto) 0-4 U Hyaline Cast (Auto) 0 U Epithel Cells (Auto) 10-20 H Urine Bacteria (Auto) Negative 02/13/19 02/14/19 02/14/19 23:34 05:56 05:56 WBC 12.21 H RBC 4.75 Hgb 12.4 L Hct 36.0 L MCV 75.8 L MCH 26.1 MCHC 34.4 RDW Std Deviation 44.0 RDW Coeff of Aiyana 16.0 H Plt Count 181 MPV 9.1 Immature Gran % (Auto) 0.2 Neut % (Auto) 78.8 Lymph % (Auto) 12.4 L[place] % (Auto) 7.7 Eos % (Auto) 0.7 Baso % (Auto) 0.2 Immature Gran # (Auto) 0.03 H Neut # (Auto) 9.62 H Lymph # (Auto) 1.52 Loving # (Auto) 0.94 H Eos # (Auto) 0.08 Baso # (Auto) 0.02 Sodium Potassium Chloride Carbon Dioxide Anion Gap BUN Creatinine Est Cr Clr Drug Dosing Est GFR ( Amer) Est GFR (Non-Af Amer) BUN/Creatinine Ratio Glucose POC Glucose 107 H Estimat Average Glucose Hemoglobin A1c Calcium Magnesium Total Bilirubin AST ALT Alkaline Phosphatase Troponin I Total Protein Albumin Globulin Albumin/Globulin Ratio Triglycerides 823 H Cholesterol 76 LDL Cholesterol, Calc VLDL Cholesterol, Calc HDL Cholesterol 18 Cholesterol/HDL Ratio 4 Lipase 2465 H Urine Color Urine Appearance Urine pH Ur Specific [place] Urine Protein Urine Glucose (UA) Urine Ketones Urine Blood Urine Nitrite Urine Bilirubin Urine Urobilinogen Ur Leukocyte Esterase Urine WBC (Auto) Urine RBC (Auto) U Hyaline Cast (Auto) U Epithel Cells (Auto) Urine Bacteria (Auto) 02/14/19 02/14/19 02/14/19 05:56 05:56 05:57 WBC RBC Hgb Hct MCV MCH MCHC RDW Std Deviation RDW Coeff of Aiyana Plt Count MPV Immature Gran % (Auto) Neut % (Auto) Lymph % (Auto) L[place] % (Auto) Eos % (Auto) Baso % (Auto) Immature Gran # (Auto) Neut # (Auto) Lymph # (Auto) L[place] # (Auto) Eos # (Auto) Baso # (Auto) Sodium 139 Potassium 3.7 Chloride 108 H Carbon Dioxide 26 Anion Gap 5.0 BUN 10 Creatinine 0.81 Est Cr Clr Drug Dosing 158.0 Est GFR ( Amer) 130.7 Est GFR (Non-Af Amer) 112.7 BUN/Creatinine Ratio 12.1 Glucose 109 H POC Glucose 103 H Estimat Average Glucose 146 Hemoglobin A1c 6.7 H Calcium 8.1 L D Magnesium 1.8 Total Bilirubin AST ALT Alkaline Phosphatase Troponin I Total Protein Albumin Globulin Albumin/Globulin Ratio Triglycerides Cholesterol LDL Cholesterol, Calc VLDL Cholesterol, Calc HDL Cholesterol Cholesterol/HDL Ratio Lipase Urine Color Urine Appearance Urine pH Ur Specific [place] Urine Protein Urine Glucose (UA) Urine Ketones Urine Blood Urine Nitrite Urine Bilirubin Urine Urobilinogen Ur Leukocyte Esterase Urine WBC (Auto) Urine RBC (Auto) U Hyaline Cast (Auto) U Epithel Cells (Auto) Urine Bacteria (Auto) Temp Pulse Resp BP Pulse Ox 02/14/19 07:39 36.8 C 80 16 128/80 95
--- NOTE | 2019-02-14 12:19 | XRay Report ---
XR KUB/Abdomen 1 view CLINICAL HISTORY: 38 years-old Male presenting with r/o constipation. TECHNIQUE: Single supine view of the abdomen was obtained. COMPARISON: CT from 03/25/2018. FINDINGS: Cholecystectomy clips noted. Mild stool burden in the right and left colon. Mild distention of a limi sugar loop of small bowel in the left mid abdomen. This is nonspecific. Nonobstructive bowel gas patter n. No gross pneumoperitoneum. The splenic shadow may be enlarged. Allowing for bowel gas and stool, no calcifications to suggest nephrolithiasis. Osseous structures normal. Lung bases clear. IMPRESSION: 1. Mild stool burden. No bowel obstruction. 2. Questionable splenomegaly. Consider left upper quadrant ultrasound for further evaluation. Electronically signed by: Carmelo Short M.D. 02/14/2019 12:18 PM
--- NOTE | 2019-02-14 15:03 | Hospitalist Progress Note ---
Date of Service February 14, 2019 Assessment & Plan (1) Acute pancreatitis: Continue IV fluids until tolerating fluids reliably, likely 12 more hours. He is doing well on clear liquids at this time. Pain is minimal. Continue supportive care. (2) Grover type V hyperlipoproteinemia: Adjustment to home medication, patient was recently taken off of fish oil which was stopped. Continue statin, fibrate, and niacin. ASA taken for niacin flushing. Receives care at [facility] under a cardiac special procedures tech. He is undergoing a pheresis treatments every other week. (3) DVT prophylaxis: Lovenox Full Dispo-to home in 1-2 days Jami Velasquez DO [facility] Hospitalist Subjective 38-year-old man presented to the ER with recurrent pancreatitis. He has a h istory of familial hypertriglyceridemia, Frederikson type V hyperlipoproteinemia, status post cholecystectomy, choledochal cyst status post Whipple's procedure with bile duct resection and hepaticojejunostomy creation. Triglycerides were 2000 on admission and are down to 800 today. Lipase has trended down with fluids overnight. Gastroenterology transition him to clear liquids and he is doing well on this. He prefers to stay on clear liquids until tomorrow morning. His pain is minimal at this point and he is otherwise asymptomatic. Review of Systems Review of Systems: All systems reviewed & are unremarkable except as noted in HPI & below Physical Exam Physical Exam: CONSTITUTIONAL: WNWD, vitals as above, generally well- appearing EYES: normal conjunctivae ENT: MMM RESPIRATORY: clear to auscultation bilaterally, no crackles, rales or wheezes, normal respiratory effort CARDIOVASCULAR: regular rate and rhythm, S1 and 2 heard without murmurs, gallops or rubs, no JVD, no peripheral edema GASTROINTESTINAL: normal bowel sounds, soft, nontender, nondistended MUSCULOSKELETAL: strength 5/5 throughout, head is normocephalic and atraumatic, SKIN: warm and dry NEUROLOGIC: CN 2-12 grossly intact, no sensory deficit, normal cognition, normal speech, no tremor, no gross focal deficits. PSYCHIATRIC: alert cooperative and oriented to person, place and time. Results & Data Vital Signs (Past 12 Hours) Vital Signs Temp Pulse Resp BP Pulse Ox 02/14/19 07:39 36.8 C 80 16 128/80 95 Laboratory Results Short CBC 02/13/19 02/14/19 Range/Units 19:44 05:56 WBC 15.67 H 12.21 H (4.8-10.8) K/uL Hgb 15.2 12.4 L (14.0-18.0) g/dL Hct 41.2 L 36.0 L (42-52) % Plt Count 275 181 (130-400) K/uL BMP 02/13/19 02/14/19 19:44 05:56 Sodium 141 139 Potassium 3.7 3.7 Chloride 107 108 H Carbon Dioxide 23 26 BUN 13 10 Creatinine 0.95 0.81 Glucose 144 H 109 H Calcium 9.6 8.1 L D Cardiac Enzymes 02/13/19 Range/Units 19:44 Troponin I < 0.015 (0-0.045) ng/ml Liver Function 02/13/19 Range/Units 19:44 Total Bilirubin 0.5 (0.2-1) mg/dl AST 15 (15-37) U/L ALT 29 (12-78) U/L Alkaline Phosphatase 91 (45-117) U/L Albumin 4.2 (3.4-5.0) gm/dl Urine 02/13/19 Range/Units 21:18 Urine Color Yellow Urine Appearance Clear (Clear) Urine pH 6.5 (4.5-7.5) Ur Specific [place] 1.038 H (1.000-1.030) Urine Protein 2+ H (Negative) Urine Glucose (UA) 3+ H (Negative) Medications Administered Current Inpatient Medications Acetaminophen (Tylenol) 650 mg PO Q4H PRN PRN Reason: pain/fever Stop: 03/15/19 23:05 Aspirin (Ecotrin) 325 mg PO HS ROZINA Stop: 03/16/19 20:59 Atorvastatin Calcium (Lipitor) 40 mg PO HS ROZINA Stop: 03/16/19 20:59 Dextrose (Dextrose 50%) 25 - 50 ml IV UD PRN; Protocol PRN Reason: Hypoglycemia Protocol Stop: 03/15/19 23:14 Duloxetine HCl (Cymbalta) 30 mg PO DAILY ROZINA Stop: 03/16/19 08:59 Last Admin: 02/14/19 08:41 Dose: 30 mg Documented by: Fenofibrate (Tricor) 145 mg PO DAILY ROZINA Stop: 03/16/19 08:59 Last Admin: 02/14/19 08:43 Dose: 145 mg Documented by: Fish Oil ([place]-3 (Purified Fish Oil)) 2 gm PO BID ROZINA Stop: 03/16/19 08:59 Last Admin: 02/14/19 08:42 Dose: Not Given Documented by: Gabapentin (Neurontin) 300 mg PO TID ROZINA Stop: 03/16/19 08:59 Last Admin: 02/14/19 13:18 Dose: 300 mg Documented by: Gabapentin (Neurontin) 600 mg PO TID ROZINA Stop: 03/16/19 08:59 Last Admin: 02/14/19 13:18 Dose: 600 mg Documented by: Glucagon (Glucagen) 1 mg IM UD PRN; Protocol PRN Reason: Hypoglycemia Protocol Stop: 03/15/19 23:14 Glucose (Glucose 40%) 15 - 30 gm PO UD PRN; Protocol PRN Reason: Hypoglycemia Protocol Stop: 03/15/19 23:14 Glucose (Dex4 Glucose) 4 - 8 tabs PO UD PRN; Protocol PRN Reason: Hypoglycemia Protocol Stop: 03/15/19 23:14 Hydromorphone HCl (Dilaudid) 0.5 mg IV Q3H PRN PRN Reason: Pain Stop: 02/27/19 23:05 Last Admin: 02/14/19 11:34 Dose: 0.5 mg Documented by: Lactated Ringer's (Lr) 1,000 mls @ 200 mls/hr IV .Q5H ROZINA Stop: 03/15/19 23:05 Last Infusion: 02/14/19 14:03 Dose: 200 mls/hr Documented by: Insulin Aspart (Novolog Flexpen) 0 units SC ACHS ROZINA Stop: 03/16/19 16:29 Losartan Potassium (Cozaar) 25 mg PO QPM ROZINA Stop: 03/16/19 20:59 Miscellaneous (Carbohydrates For Hypoglycemia) 15 - 30 gm PO UD PRN PRN Reason: Hypoglycemia Treatment Stop: 03/15/19 23:14 Niacin (Niaspan Extended Rel) 1,500 mg PO HS ROZINA Stop: 03/16/19 20:59 Ondansetron HCl (Zofran) 4 mg IV Q6H PRN PRN Reason: Nausea Stop: 03/15/19 23:05 Pantoprazole Sodium (Protonix) 40 mg PO DAILY ROZINA Stop: 07/18/19 08:59 Last Admin: 02/14/19 08:42 Dose: 40 mg Documented by: (1) Acute pancreatitis Acute pancreatitis complication: unspecified Pancreatitis type: unspecified pancreatitis type Qualified Code(s): K85.90 - Acute pancreatitis without necrosis or infection, unspecified
[2019-02-14] MEDS ORDERED: LOSARTAN POTASSIUM 25 MG TAB PO SCH (21:00)
[2019-02-14] MEDS ORDERED: NIACIN EXTENDED REL 500 MG TABCR PO SCH (21:00)
[2019-02-14] MEDS ORDERED: ATORVASTATIN 40 MG TAB PO SCH (21:00)
[2019-02-14] MEDS ORDERED: NON-FORMULARY MEDICATION (Niacin 500 MG) PO SCH (21:00)
[2019-02-14] MEDS ORDERED: ASPIRIN 325 MG ECTAB PO SCH (21:00)
[2019-02-15] MEDS: LACTATED RINGER'S 1,000 ML IV SCH ×3 (04:30→14:02)
[2019-02-15 06:02] LABS: Hematocrit (blood only) 33.6 % (42-52); Hemoglobin 10.9 g/dL (14.0-18.0); Mean Corpuscular Hgb Conc 32.4 g/dL (32-36); Mean Corpuscular Volume 76.5 fL (80-100); Mean Platelet Volume 9.2 fL (7.4-10.4); Platelet Count 154 K/uL (130-400); RDW Coefficient of Variation 15.9 % (11.5-14.5); RDW Standard Deviation 44.6 fL (36.4-46.3); Red Blood Count 4.39 M/uL (4.7-6.1); White Blood Count 7.15 K/uL (4.8-10.8)
[2019-02-15 06:37] LABS: BUN Creatinine Ratio 10.8 (10-20); Calcium 8.7 mg/dl (8.5-10.1); Creatinine Clr Calc Pharmacy 166.2 ml/min; Est GFR (African American) 133.4; Est GFR (Non-African American) 115.1; Potassium 3.7 mmol/L (3.5-5.1)
[2019-02-15] MEDS: FENOFIBRATE NANOCRYSTALLIZED 145 MG TABLET PO SCH (08:18)
[2019-02-15] MEDS: GABAPENTIN 300 MG CAP PO SCH ×2 (08:18→14:01)
[2019-02-15] MEDS: PANTOprazole 40 MG TAB PO SCH (08:18)
[2019-02-15] MEDS: GABAPENTIN 600 MG TAB PO SCH ×2 (08:18→14:01)
[2019-02-15] MEDS: DULOXETINE HCL 30 MG CAP PO SCH (08:18)
[2019-02-15] MEDS: INSULIN ASPART 100 UNITS/ML 3 ML PEN SC SCH ×3 (08:20→17:56)
--- NOTE | 2019-02-15 08:53 | Gastroenterology Progress Note ---
Date of Service February 15, 2019 Assessment & Plan (1) Acute pancreatitis: Mr. Jakob Wilhelm is a 38 yr old male with acute, recurrent pancreatitis from hypertriglyceridemia. His pain is resolved, lipase was much improved yesterday compared to arrival. 1. Will advance diet to low fat, regular consistency.. 2. Will decrease IV fluids to 150/hr. 3. Has OP EUS scheduled. 4. No further diagnostic testing during this admision. Present on Admission?: Yes (2) Grover type V hyperlipoproteinemia: Present on Admission?: Yes Supervising Physician Co-Signing Physician Notes I have seen and examined the patient and discussed the management with MARTY Zeng. 38 yo male with a history of hyperlipidemia, s/p prior whipple and cholecystectomy, admitted with abdominal thought to be acute pancreatitis. Responding well to IV LR and advancing diet. PE- well nourished white male in nad, heent - perrla, cv- rrr no mrg pulm - ctab, abd - soft nt nd +bs Labs reviewed Agree with further assessment and plan as per Fredy's assessment and plan. Subjective Mr. Jakob Wilhelm is a 38 yr old male with DM-2, HTN, GERD, Raquel type IV hyperlipoproteinemia, undergoing apheresis Q 2 wks. He is S/P choledochal cyst status post surgery, cholecystectomy and Whipple. He was admitted on 02/13 with recurrent acute pancreatitis. Pt feels well today. He tolerated clear liquids po yesterday without any nausea or increased pain. His most recent abdominal pain was yesterday. Lipase on arrival [id number] yesterday. Cr today 0.7. Hb on arrival 15-> 10 today. WBC on arriavl 10 ->7 today . Review of Systems Review of Systems: ROS: Gen: Denies weakness, fevers, weight loss Eyes: No eye redness, or pain, no recent vision changes Resp: No SOB, no cough Cardio: No palpitations/irregular beats, no chest pain GI: No abdominal pain, no nausea/vomiting : Denies pain on urination Skin: No jaundice, itching or new rashes Physical Exam 2 Constitutional: WD/WN, vitals as above Eyes: PERRL, conjunctivae normal, anicteric sclerae ENMT: external ear and nose normal, oropharynx normal Neck: trachea midline, no thyromegaly Respiratory: normal respiratory effort, lungs clear to auscultation Cardiovascular: RRR, no murmur, no edema Gastrointestinal (Abdomen): normal bowel sounds, soft, nontender, no hepatosplenomegaly Musculoskeletal: no cyanosis or clubbing, extremities motor strength 5/5 Skin: no rashes, warm and dry Neurologic: PERRL, EOMI, accommodation nl, no face palsy, no dysarthria Psychiatric: A+Ox3, euthymic affect Lymphatic: no cervical or axillary lymphadenopathy Results & Data Vital Signs (Past 12 Hours) Vital Signs Temp Pulse Resp BP Pulse Ox 02/15/19 07:44 36.5 C 74 16 106/68 96 02/14/19 23:25 36.7 C 75 16 112/70 96 Diagnostic Findings Most recent CT in [facility] CT abd/pelvis w contrast 01/19/19 Stable hypoattenuating lesion in the pancreatic tail 1.8 cm, which may reflect a complex pseudocyst or pancreatic cystic neoplasm. EUS scheduled on 03/06/19 for further evaluation. (1) Acute pancreatitis Acute pancreatitis complication: unspecified Pancreatitis type: unspecified pancreatitis type Qualified Code(s): K85.90 - Acute pancreatitis without necrosis or infection, unspecified
--- NOTE | 2019-02-15 18:20 | Discharge Summary ---
Date of Service February 15, 2019 Admission HPI Per Admitting Provider Chief Complaint: Abdominal pain Primary Care Provider: Kobi Beck DO History obtained from patient and records. 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 Recent confinement February 2018 for recurrent pancreatitis. One day history of achy upper abdominal pain with nausea and emesis. No chest pain, no SOB. Denies recent fatty food/ETOH intake. Last outpatient serum triglyceride level for this month was 4000. [place] [facility]. Admission Exam Per Admitting Provider PHYSICAL EXAMINATION: GENERAL: The patient is obese, not in acute distress. VITAL SIGNS: Temperature 37.5, pulse 101, respiratory rate 18, blood pressure 113/86, oxygen 100% room air. HEENT: No pallor, no icterus. Pupils equal, round, and reactive to light. NECK: No JVD or neck masses, no carotid bruits. CARDIOVASCULAR: S1, S2 heard, regular rate and rhythm, no murmur, no gallop. RESPIRATORY SYSTEM: Normal AP diameter. No accessory muscle use. No wheezing, no crackles. ABDOMEN: Soft, bowel sounds present. Mild abdominal tenderness in the epigastric region. No guarding, no rigidity. No distention. CENTRAL NERVOUS SYSTEM: Cranial nerves II-XII grossly intact. Nonfocal. EXTREMITIES: No edema, no erythema. Principal Diagnosis acute pancreatitis hypertriglyceridemia Discharge Data Allergies Allergy/AdvReac Type Severity Reaction Status Date / Time No Known Allergies Allergy Verified 02/13/19 20:26 Consultations 02/13/19 21:44 ED Decision to Admit Stat 02/14/19 08:00 Consult Gastroenterology Routine Hospital Course (1) Acute pancreatitis: (2) Grover type V hyperlipoproteinemia: He was admitted to the hospitalist service and placed on IV fluids. Supportive care was continued and GI was consulted. He was able to advance his diet quickly and remained hemodynamically stable and afebrile. At time of discharge she was tolerating p.o. and mentating and ablating at baseline. Physical exam was unremarkable including abdominal exam which revealed no tenderness to palpation. Abdomen was soft and nondistended. Close primary care follow-up was recommended. Total Time Total Time Spent Total Time Spent (In Minutes): 60 Total Time Includes: Examination of the Patient, Discharge Planning, Medication Reconciliation, Communication With Other Providers and Other (arrange followup) Discharge Plan Discharge Items Patient Disposition: Home - Self-Care Reason For Visit: ABD PAIN Discharge Diagnosis: acute pancreatitis hypertriglyceridemia Condition: Good Discharge Goals: Decrease discomfort and Improve disease control Activity: Resume your previous activity Non-emergency contact: Primary Care Provider Call non-emergency contact if: you have any medication questions, your symptoms worsen, your pain is not controlled, your pain is worsening and you have a fever Follow-up/Referrals: Kobi Beck, [Primary Care Provider] - Diet: Low Fat Addtl Provider Instructions: Please take all medications as instructed on discharge list below. Please follow-up with your [employer] as instructed for endoscopic ultrasound. It is recommended that you follow-up with your primary care provider within one week of discharge to touch base and see how you are doing. It was a pleasure taking care of you! Please call if you have any questions or problems. You can reach a [facility] hospitalist on duty at [facility] 24 hours a day by calling [phone]. Take care of yourself. Jami Velasquez, [facility] Hospitalist Prescriptions: Continued gabapentin 600 mg Tablet 600 mg PO TID RF: 0 duloxetine 30 mg Capsule,Delayed Release(Dr/Ec) 30 mg PO DAILY RF: 0 fenofibrate nanocrystallized 145 mg Tablet 145 mg PO DAILY RF: 0 atorvastatin 40 mg Tablet 40 mg PO HS RF: 0 niacin 1,000 mg Tablet Extended Release 24 Hr 1,000 mg PO HS RF: 0 aspirin 325 mg Tablet 325 mg PO HS RF: 0 metformin 1,000 mg Tablet 1,000 mg PO BIDM RF: 0 losartan 25 mg Tablet 25 mg PO QPM RF: 0 gabapentin 300 mg Capsule 300 mg PO TID RF: 0 niacin 500 mg Capsule, Extended Release 500 mg PO HS RF: 0 diphenhydramine-acetaminophen [Tylenol PM Extra Strength] 25-500 mg Tablet 2 tab PO HS PRN (Reason: PAIN/SLEEP) RF: 0 omeprazole 20 mg Tablet,Delayed Release (Dr/Ec) 20 mg PO DAILY RF: 0 Jardiance 10 mg Tablet 10 mg PO QAM RF: 0 acetaminophen [Tylenol Extra Strength] 500 mg Tablet 1,000 mg PO DIRECTED PRN (Reason: Fever Or Pain) Qty: 0 RF: 0 diclofenac sodium 50 mg Tablet,Delayed Release (Dr/Ec) 50 mg PO TID Qty: 0 RF: 0 Stand-Alone Forms: Call Back Authorization, Work/School Release (ED), [facility]/Other Patient Handouts: Pancreatitis Discharge Orders: Discharge Order (Routine); Ordered 02/15/19 Ordered By: Jami Velasquez Admission Data Admit Date/Time: 02/13/19 22:30 Attending Provider: Jami Velasquez Admit Provider: Ranjith Rodriguez Primary Care Provider: Kobi Beck Other Providers: Ranjith Rodriguez ; Sarah Kraft ; Ana Molina ; Fredy Zambrano Service: Medical Other Interventions: Discharge Summary Assessment (RN) Last Done: 02/15/19 18:25 DC Date/Time DO NOT enter until pt leaves facility: 02/15/19 19:06
== END 2019-02-15 19:06 | disposition home or self-care (01) | DRG 642 ==
LOC: ED 17:44 → 3E 22:30
DX: K21.9 Gastro-esophageal reflux disease without esophagitis; Z98.890 Other specified postprocedural states; Z99.89 Dependence on other enabling machines and devices; K86.1 Other chronic pancreatitis; Z79.1 Long term (current) use of non-steroidal anti-inflammatories (NSAID); Z79.84 Long term (current) use of oral hypoglycemic drugs; I10 Essential (primary) hypertension; G89.29 Other chronic pain; Z79.899 Other long term (current) drug therapy; Z79.82 Long term (current) use of aspirin; E11.9 Type 2 diabetes mellitus without complications; M54.9 Dorsalgia, unspecified; Z87.891 Personal history of nicotine dependence; E78.3 Hyperchylomicronemia; Z83.3 Family history of diabetes mellitus

== ENCOUNTER 2019-03-22 02:26 | Inpatient (IN) ==
[2019-03-22] MEDS ORDERED: DiphenhydrAMINE HCL 50 MG/ML VIAL IV STA (02:34)
[2019-03-22] MEDS ORDERED: METOCLOPRAMIDE HCL INJ 5 MG/ML 2 ML VIAL IV STA (02:34)
[2019-03-22] MEDS ORDERED: HYDROmorphone INJ 1 MG/ML SYRINGE IV PRN (02:34)
--- NOTE | 2019-03-22 02:42 | Emergency Department Note ---
History of Present Illness General Chief complaint: Abdominal Pain Stated complaint: ABD PAIN, VOMITING, RIB PAIN History of Present Illness Maximum Pain Intensity: 6 This 38-year-old presents to the ER complaining of epigastric pain with vomiting who is a history of pancreatitis Location: Epigastric Quality: Achy Severity: Moderate Duration: Past 2 days Timing: The other day Context: Pain got worse and patient returned Modifying factors: better with nothing; worse with activity Patient was seen yesterday morning and had elevated lipase with a normal ultrasound and x-ray. He has a history of pancreatitis. He follows with his GI specialist in [place]. The pain got worse and patient returns. Patient denies chest pain, dyspnea, fevers, cough, congestion. Home Medications Home Medications Medication Instructions Recorded Confirmed Type Jardiance 10 mg PO QAM 09/16/18 03/22/19 History aspirin 325 mg PO HS 09/16/18 03/22/19 History atorvastatin 40 mg PO HS 09/16/18 03/22/19 History diphenhydramine-acetaminophen 2 tab PO HS PRN 09/16/18 03/22/19 History [Tylenol PM Extra Strength] gabapentin 300 mg PO TID 09/16/18 03/22/19 History losartan 25 mg PO QPM 09/16/18 03/22/19 History metformin 1,000 mg PO BIDM 09/16/18 03/22/19 History niacin 1,000 mg PO HS 09/16/18 03/22/19 History niacin 500 mg PO HS 09/16/18 03/22/19 History omeprazole 20 mg PO QAM 09/16/18 03/22/19 History diclofenac sodium 50 mg PO TID #0 tab 09/19/18 03/22/19 Rx duloxetine 30 mg PO DAILY PRN 02/13/19 03/22/19 History fenofibrate nanocrystallized 145 mg PO QAM 02/13/19 03/22/19 History gabapentin 600 mg PO TID 02/13/19 03/22/19 History docusate sodium [Colace] 100 mg PO BID #60 cap 03/21/19 03/22/19 Rx ondansetron HCl [Zofran] 4 mg PO Q6H #6 tab 03/21/19 03/22/19 Rx oxycodone 5 mg PO Q6H #14 tab 03/21/19 03/22/19 Rx sennosides [Senokot] 8.6 mg PO HS #30 tab 03/21/19 03/22/19 Rx Allergies Allergy/AdvReac Type Severity Reaction Status Date / Time No Known Allergies Allergy Verified 03/22/19 03:05 Past Med/Surg History Medical History Pancreatitis (Acute) Surgical History History of cholecystectomy Social History Preferred Language: Greenlandic Communication Ability: Effective Beliefs That Will Affect Care: None Current Living Situation: Parent Current Living Situation Comment: both parents Feels Safe at Home: Yes Smoking Status: Never smoker Tobacco Type: cigarettes Second Hand Exposure: No Hx Alcohol Use: No Hx Substance Use: No Review of Systems All systems reviewed & are unremarkable except as noted in HPI & below Physical Exam Vital Signs Vital Signs - 24 hr 03/22/19 02:28 03/22/19 02:58 Temperature 36.9 C Temperature Source Oral Sepsis Recent Fever Within 48 Hours No Sepsis New/Unexplained Change in Mental Status No Sepsis Action Taken by Nursing No Action Required Pulse Rate 92 H 81 Pulse Rhythm Regular Respiratory Rate 18 24 Blood Pressure 148/90 H Blood Pressure Mean 109 Pulse Oximetry 98 93 Oxygen Delivery Method Room Air VITALS: Vitals are noted on the nurse's note and reviewed by myself. Vital signs stable. GENERAL: White male, in no acute distress, nondiaphoretic, well-developed well- nourished. SKIN: The skin was without rashes, erythema, edema, or bruising. There is no tenting of the skin. Capillary reflex less than 2 seconds. HEAD: Normocephalic atraumatic. EARS: External auditory canals clear EYES: Pupils equal round and reactive to light and accommodation. Conjunctivae without injection, sclerae without icterus. Extraocular movements intact. NOSE: Patent, turbinates without inflammation or discharge. MOUTH: Mucous membranes moist. Pharynx without erythema or exudate. Uvula midline. Airway patent. Tongue does not deviate. NECK: Supple without nuchal rigidity. No lymphadenopathy. No thyromegaly. Cervical spine is nontender. No JVD. HEART: Regular rate and rhythm LUNGS: Clear to auscultation bilaterally without wheezes, rales or rhonchi. No retractions or accessory muscle use. ABDOMEN: Positive bowel sounds x 4. Normal tympanic percussion. Soft, tender to palpation epigastric region, without masses or organomegaly. Upton sign negative. No guarding or rebound tenderness. No CVA tenderness MUSCULOSKELETAL: No muscle atrophy, erythema, or edema noted. NEURO: Patient was alert and oriented to person place and time. Normal sensation to light and sharp touch. No focal neurological deficits. Course Administered Medications Hydromorphone HCl (Dilaudid) 1 mg IV Q15M PRN PRN Reason: Pain Stop: 04/05/19 02:33 Last Admin: 03/22/19 02:55 Dose: 1 mg Documented by: [id number] Sodium Chloride (Nss 1000ml) 1,000 mls @ 999 mls/hr IV .Q1H1M ROZINA Stop: 03/22/19 03:45 Last Admin: 03/22/19 02:55 Dose: 999 mls/hr Documented by: [id number] Discontinued Medications Diphenhydramine HCl (Benadryl) 25 mg IV NOW STA Stop: 03/22/19 02:35 Last Admin: 03/22/19 02:55 Dose: 25 mg Documented by: [id number] Metoclopramide HCl (Reglan) 10 mg IV NOW STA Stop: 03/22/19 02:35 Last Admin: 03/22/19 02:55 Dose: 10 mg Documented by: [id number] Medical Decision Making Medical Records Attestation: I reviewed the patient's medical records. Home Medications Current Medication List: was personally reviewed by me Laboratory Data Attestation: I reviewed the patient's lab results. Result diagrams: 03/22/19 02:42 03/22/19 02:42 Lab Results 03/22/19 03/22/19 03/22/19 Range/Units 02:42 02:42 02:47 WBC 14.33 H (4.8-10.8) K/uL RBC 5.17 (4.7-6.1) M/uL Hgb 13.3 L (14.0-18.0) g/dL Hct 39.4 L (42-52) % MCV 76.2 L (80-100) fL MCH 25.7 (25-34) pg MCHC 33.8 (32-36) g/dL RDW Std Deviation 43.9 (36.4-46.3) fL RDW Coeff of Aiyana 15.9 H (11.5-14.5) % Plt Count 193 (130-400) K/uL MPV 9.9 (7.4-10.4) fL Immature Gran % (Auto) 0.3 % Neut % (Auto) 84.5 % Lymph % (Auto) 8.0 % [place] % (Auto) 6.8 % Eos % (Auto) 0.3 % Baso % (Auto) 0.1 % Immature Gran # (Auto) 0.04 H (0.00-0.02) K/uL Neut # (Auto) 12.11 H (1.4-6.5) K/uL Lymph # (Auto) 1.14 L (1.2-3.4) K/uL [place] # (Auto) 0.97 H (0.11-0.59) K/uL Eos # (Auto) 0.05 (0-0.5) K/uL Baso # (Auto) 0.02 (0-0.2) K/uL Sodium 138 (136-145) mmol/L Potassium 3.4 L (3.5-5.1) mmol/L Chloride 107 (98-107) mmol/L Carbon Dioxide 26 (21-32) mmol/L Anion Gap 5.0 (3-11) BUN 12 (7-18) mg/dl Creatinine 0.78 (0.6-1.4) mg/dl Est Cr Clr Drug Dosing 163.9 ml/min Est GFR ( Amer) 132.7 Est GFR (Non-Af Amer) 114.5 BUN/Creatinine Ratio 15.5 (10-20) Glucose 145 H (70-99) mg/dl POC Lactic Acid Gilbert 0.87 L (0.90-1.70) mmol/L Calcium 8.4 L (8.5-10.1) mg/dl Total Bilirubin 0.7 (0.2-1) mg/dl AST 16 (15-37) U/L ALT 24 (12-78) U/L Alkaline Phosphatase 79 (45-117) U/L Total Protein 7.2 (6.4-8.2) gm/dl Albumin 3.6 (3.4-5.0) gm/dl Globulin 3.6 (2.5-4.0) gm/dl Albumin/Globulin Ratio 1.0 (0.9-2) Lipase 7884 H (73-393) U/L MDM Narrative Prior records/ancillary studies reviewed. Triage Nursing notes reviewed. Additional history obtained from family. The patient's history was concerning for abdominal pain. Differential diagnosis: Etiologies such as appendicitis, diverticulitis, PUD, biliary pathology, UTI, pancreatitis, obstruction, mesenteric ischemia, aortic pathology, infections, inflammatory bowel disease, renal colic, as well as others were entertained. Physical examination findings: As above. ER treatment provided: IV fluids, Dilaudid, Benadryl, Reglan IV On reassessment the patient felt better. Diagnostics interpreted by me: The labs revealed leukocytosis, elevated lipase Imaging studies: US abdomen limited HISTORY: Pain. Nausea. Pt c/o RUQ abd pain. COMPARISON: 06/17/2014 FINDINGS: Pancreas: The pancreas demonstrates a normal echotexture. Liver: Fatty infiltration Gallbladder: Prior cholecystectomy CBD: 5 mm Right kidney: No hydronephrosis. IMPRESSION: 1. Fatty replacement of the liver. 2. Otherwise negative study postcholecystectomy. 3. No change from the prior exam. The above report was generated using voice recognition software. It may contain grammatical, syntax or spelling errors. Electronically signed by: Tuan Todd M.D. XR abdomen 2V w PA chest CLINICAL HISTORY: Pt c/o pancreatic pain COMPARISON STUDY: No previous studies for comparison. FINDINGS: The soft tissues, psoas shadows, renal outlines and intestinal gas pattern appear normal. There is no evidence for bowel obstruction. There is no evidence for free intraperitoneal air. No abnormal abdominal calcifications are seen. A frontal view of the chest was performed and is unremarkable. IMPRESSION: Normal study. The above report was generated using voice recognition software. It may contain grammatical, syntax or spelling errors. Electronically signed by: Tuan Todd M.D. Consultation: A consultation was placed with the hospitalist, Dr. Rodriguez. The case was discussed and diagnostics were reviewed. The patient was evaluated in the ER for further treatment. Exam and history seem consistent with pancreatitis. This is recurrent for the patient. Patient's pain persisted. Medicine was consulted. He had an elevated lipase. He had normal imaging less than 24 hours ago. Patient is agreeable treatment plan of admission. By the evaluation outlined above emergent etiologies such as appendicitis, diverticulitis, PUD, biliary pathology, UTI, obstruction, mesenteric ischemia, aortic pathology, infections, inflammatory bowel disease, renal colic, as well as others were deemed relatively unlikely. The pt informed about the findings as listed above. All questions were answered and pleased with the treatment. Case reviewed with my attending The chart was completed utilizing [employer] voice recognition software. Grammatical errors, random word insertions, pronoun errors, and incomplete sentences are an occassional consequence of this system due to software limitations, ambient noise, and hardware issues. Any formal questions or concerns about the content, text, or information contained within the body of this dictation should be directly addressed to the physician pharmacy assistant for clarification. Impression & Plan Pancreatitis Discharge Plan Visit Data Chief Complaint: Abdominal Pain Stated Complaint: ABD PAIN, VOMITING, RIB PAIN ED Provider: Marii Hollingsworth ED Midlevel Provider: Shira Núñez Discharge Problem: Pancreatitis Patient Disposition: Being Evaluated by Hospitalist Condition: Good Forms Stand Alone Forms: Call Back Authorization, [facility] Prescriptions Prescriptions: No Action gabapentin 600 mg Tablet 600 mg PO TID RF: 0 duloxetine 30 mg Capsule,Delayed Release(Dr/Ec) 30 mg PO DAILY PRN (Reason: Back Pain) RF: 0 fenofibrate nanocrystallized 145 mg Tablet 145 mg PO QAM RF: 0 oxycodone 5 mg tablet 5 mg PO Q6H Qty: 14 RF: 0 sennosides [Senokot] 8.6 mg tablet 8.6 mg PO HS Qty: 30 RF: 0 docusate sodium [Colace] 100 mg capsule 100 mg PO BID Qty: 60 RF: 0 ondansetron HCl [Zofran] 4 mg tablet 4 mg PO Q6H Qty: 6 RF: 0 atorvastatin 40 mg Tablet 40 mg PO HS RF: 0 niacin 1,000 mg Tablet Extended Release 24 Hr 1,000 mg PO HS RF: 0 aspirin 325 mg Tablet 325 mg PO HS RF: 0 metformin 1,000 mg Tablet 1,000 mg PO BIDM RF: 0 losartan 25 mg Tablet 25 mg PO QPM RF: 0 gabapentin 300 mg Capsule 300 mg PO TID RF: 0 niacin 500 mg Capsule, Extended Release 500 mg PO HS RF: 0 diphenhydramine-acetaminophen [Tylenol PM Extra Strength] 25-500 mg Tablet 2 tab PO HS PRN (Reason: PAIN/SLEEP) RF: 0 omeprazole 20 mg Tablet,Delayed Release (Dr/Ec) 20 mg PO QAM RF: 0 Jardiance 10 mg Tablet 10 mg PO QAM RF: 0 diclofenac sodium 50 mg Tablet,Delayed Release (Dr/Ec) 50 mg PO TID Qty: 0 RF: 0 Referrals Referrals: Mena Hernández MD [Primary Care Provider] - Discharge Problem: Pancreatitis Qualifiers: Chronicity: acute Pancreatitis type: unspecified pancreatitis type Acute pancreatitis complication: unspecified Qualified Code(s): K85.90 - Acute pancreatitis without necrosis or infection, unspecified
[2019-03-22] MEDS ORDERED: SODIUM CHLORIDE 0.9% 1000ML 1,000 ML IV SCH ×2 (02:45→03:30)
[2019-03-22 02:51] LABS: Basophils # (auto) 0.02 K/uL (0-0.2); Basophils % (auto) 0.1 %; Eosinophils # (auto) 0.05 K/uL (0-0.5); Eosinophils % (auto) 0.3 %; Hematocrit (blood only) 39.4 % (42-52); Hemoglobin 13.3 g/dL (14.0-18.0); Immature Granulocytes # (auto) 0.04 K/uL (0.00-0.02); Immature Granulocytes % (auto) 0.3 %; Lymphocytes # (auto) 1.14 K/uL (1.2-3.4); Mean Corpuscular Hgb Conc 33.8 g/dL (32-36); Mean Corpuscular Volume 76.2 fL (80-100); Mean Platelet Volume 9.9 fL (7.4-10.4); Monocytes # (auto) 0.97 K/uL (0.11-0.59); Monocytes % (auto) 6.8 %; Neutrophils # (auto) 12.11 K/uL (1.4-6.5); Neutrophils % (auto) 84.5 %; Platelet Count 193 K/uL (130-400); RDW Coefficient of Variation 15.9 % (11.5-14.5); RDW Standard Deviation 43.9 fL (36.4-46.3); Red Blood Count 5.17 M/uL (4.7-6.1); White Blood Count 14.33 K/uL (4.8-10.8)
[2019-03-22 03:10] LABS: Albumin Level 3.6 gm/dl (3.4-5.0); BUN Creatinine Ratio 15.5 (10-20); Calcium 8.4 mg/dl (8.5-10.1); Creatinine Clr Calc Pharmacy 163.9 ml/min; Est GFR (African American) 132.7; Est GFR (Non-African American) 114.5; Potassium 3.4 mmol/L (3.5-5.1)
[2019-03-22 03:12] LABS: Bilirubin,Total 0.7 mg/dl (0.2-1); Globulin 3.6 gm/dl (2.5-4.0); Total Protein 7.2 gm/dl (6.4-8.2)
--- NOTE | 2019-03-22 04:38 | History and Physical Report ---
DATE OF ADMISSION: 03/22/2019 CHIEF COMPLAINT: Abdominal pain. 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 Gets periodic apheresis every 2 weeks at [place], today is the day for his apheresis. Past tobacco abuse, choledochal cyst status post surgery, chronic back pain, type 2 diabetes, chronic anemia, hypertension, GERD. Presents with abdominal pain. The patient was here on 02/12/2019 with pancreatitis that got resolved with conservative management. Again, the patient says yesterday morning at 4:00 a.m. he woke up with abdominal pain, came to the ER. His lipase was at that time 1700. Advised to follow outpatient, but again the pain was not getting better, so he came back again tonight and his lipase was increased to 7800. When he came, the pain was 8/10 in severity all over the abdomen relating to his back. Also with nausea and one episode of vomiting. Currently, after pain medication, pain is at 2/10 in severity. He also had some diarrhea, no blood in the stool, no black stools. Normal bladder movements. No burning micturitions. No chest pain, no shortness of breath, no cough, no fever, no chills. Appetite is okay. No dysphagia, no headaches. No edema, no rash. Currently resting comfortably and hemodynamically stable. ALLERGIES: No known drug allergies. PAST MEDICAL HISTORY: As mentioned above. PAST SURGICAL HISTORY: EGD with endoscopic ultrasound, excision of a choledochal cyst, lumbar spine injection, resection of the bile duct with fusion, Whipple's procedure, tonsillectomy, and adenoidectomy. MEDICATIONS: Currently, the patient is on atorvastatin 40 mg p.o. daily, metformin 1000 mg p.o. b.i.d., Cymbalta 30 mg p.o. daily, niacin 1500 mg daily, gabapentin 900 mg p.o. t.i.d., Tricor 145 mg p.o. daily, diclofenac 50 mg p.o. t.i.d. Jardiance 5 mg daily, omeprazole 20 mg p.o. daily, losartan 25 mg p.o. daily, aspirin 325 mg p.o. daily. FAMILY HISTORY: Significant for brother has kidney stones, mother has glaucoma, father has diabetes, paternal grandfather has colon cancer and diabetes, maternal grandfather has diabetes, and maternal grandmother has diabetes and breast cancer. SOCIAL HISTORY: Single, lives with his mother. Former smoker, quit in 2006, smoked one-third pack a day for 17 years. No alcohol use, no drug use. REVIEW OF SYMPTOMS: As per HPI. Rest of the review of systems negative. PHYSICAL EXAMINATION: GENERAL: The patient is obese, not in acute distress. VITAL SIGNS: Temperature 36.9, pulse 81, respiratory rate 24, blood pressure 148/90, oxygen 93% on room air. HEENT: No pallor, no icterus. Pupils equal, round, and reactive to light. NECK: No JVD, no neck masses, no carotid bruit. CARDIOVASCULAR: S1, S2 heard, regular rate and rhythm, no murmur, no gallop. RESPIRATORY SYSTEM: Normal AP diameter. No accessory muscle use. No wheezing, no crackles. ABDOMEN: Soft, bowel sounds present. Diffuse mild abdominal tenderness. No guarding, no rigidity, no distention. CENTRAL NERVOUS SYSTEM: Cranial nerves II-XII grossly intact. Nonfocal. EXTREMITIES: No edema, no erythema. LABORATORY DATA: WBC 14.3, hemoglobin 13.3, hematocrit 39.4, platelets 193. Sodium 138, potassium 3.4, chloride 107, bicarbonate 26, BUN 12, creatinine 0.7, serum glucose 145, point of care lactic acid 0.8, calcium 8.4, total bilirubin 0.7, AST 16, ALT 24, alkaline phosphatase 79, lipase 7884. ASSESSMENT AND PLAN: This is a 38-year-old male who presents with recurrent pancreatitis. 1. Recurrent pancreatitis secondary to [place] type IV hyperlipoproteinemia status post Whipple's procedure. Currently his lipase is 7000. We will place him on IV Ringer lactate 200 mL per hour, IV antiemetics, IV pain medications p.r.n., n.p.o. Consult GI in a.m. 2. Raquel type IV hyperlipoproteinemia. Gets apheresis every 2 weeks, today is the day for his apheresis. Last lipoprotein level checked was on 02/06/2019 and the level was 1539. Follows with cardiology, on full-dose aspirin, statin, niacin,and Tricor. Needs close followup. 3. History of diabetes. Holding metformin, Jardiance. Placed on insulin sliding scale. We will follow the blood sugar level. Currently, patient is n.p.o. 4. Gastroesophageal reflux disease. Continue Prilosec. 5. Hypertension. Continue Cozaar. Will monitor. 6. Chronic back pain. We will hold his diclofenac sodium. He is getting Dilaudid p.r.n. currently. Continue his gabapentin. 7. Deep venous thrombosis prophylaxis, sequential compression devices for now. 8. Disposition: Admit to med/surg. Level 1 full code. Expect to discharge home and follow with his family doctor and GI. JANNET
[2019-03-22] MEDS ORDERED: ACETAMINOPHEN 325 MG TAB PO PRN ×2 (05:05→17:19)
[2019-03-22] MEDS ORDERED: ONDANSETRON INJ 2 MG/ML 2 ML VIAL IV PRN (05:05)
[2019-03-22] MEDS ORDERED: DULOXETINE HCL 30 MG CAP PO PRN (05:05)
[2019-03-22 05:10] LABS: Appearance Urine Clear (Clear); Bacteria Urine Automated Negative (Negative); Bilirubin Urine Negative (Negative); Blood Urine Negative (Negative); Cast Urine Automated 0 /lpf (0-5); Color Urine Yellow; Glucose Urine UA 3+ (Negative); Ketones Urine Negative (Negative); Leukocyte Esterase Urine Negative (Negative); Nitrite Urine Negative (Negative); RBC Urine Automated 0-4 /hpf (0-4); Specific Gravity Urine 1.022 (1.000-1.030); Urobilinogen Urine Negative (Negative); pH Urine 7.5 (4.5-7.5)
[2019-03-22] MEDS ORDERED: GLUCOSE 10 TABS/TUBE PO PRN (05:15)
[2019-03-22] MEDS ORDERED: GLUCOSE 40% GEL 15 GM TUBE PO PRN (05:15)
[2019-03-22] MEDS: HYDROmorphone INJ 0.5 MG/0.5 ML SYR IV PRN ×2 (05:15→07:54)
[2019-03-22] MEDS ORDERED: GLUCAGON FOR INJ 1 MG VIAL SQ PRN (05:15)
[2019-03-22] MEDS ORDERED: DEXTROSE 50% 50 ML SYRINGE IV PRN (05:15)
[2019-03-22] MEDS ORDERED: CARBOHYDRATES FOR HYPOGLYCEMIA PO PRN (05:15)
[2019-03-22] MEDS: LACTATED RINGER'S 1,000 ML IV SCH ×4 (05:16→21:27)
[2019-03-22 05:19] LABS: Protein Urine 1+ (Negative)
--- NOTE | 2019-03-22 07:22 | Gastrointestinal Consultation ---
Date of Consultation March 22, 2019 Assessment & Plan (1) Pancreatitis: 1. LR at 200 250/h until hemoglobin is dropped two-points. 2 Clear liquids po. 3. Continue f/u with cardiology in [place] for management of hypertriglyceridemia and plasmapheresis. 4. Pt encouraged to consider more angelita quent plasmapheresis. 5. We are asked to provide an opinion regarding the use of insulin for tx of hypertriglyceridemia during hospitalizations for pancreatitis. We are not able to provide an opinion and recommend deferring to the cardiology lipid specialist. 6. No plans for further diagnostic testing at this time. Present on Admission?: Yes Supervising Physician Co-Signing Physician Notes I saw and evaluated the patient. He presents with acute pancreatitis thought to be related to hypertriglyceridemia. Patient [place] [facility] to control his hyperlipidemia for several years. Given the recurrent symptoms perhaps an MRCP would be of value to look for pancreatic duct changes. Physical examination No obvious distress Mild epigastric tenderness Impression: History of recurrent pancreatitis thought to be related to hypertriglyceridemia treated with plasmapheresis. At this point I would defer to subject matter expert at [facility] for other recommendations with regard to his hyper triglyceridemia control. I would also suggest further evaluation with MRCP to look for a ductal process that we might be able to assist with by doing an intervention such as ERCP on. History of Present Illness Reason for Consultation: Pancreatitis Requesting Physician: Dilip Casillas Attending Physician: Dilip Casillas MD History of Present Illness Mr. Jakob Wilhelm is a 38 yr old male pt of Dr. Mena Esquivel who has a hx of [place] type B hyperlipoproteinemia, DM-2, multiple prior episodes of pancreatitis caused by hypertriglyceridemia. He is s/p cholecystectomy, and underwent Whipple's for choledochal cyst. He undergoes apheresis under the direction of Dr. Sidhu (Cardiology) in [place] every 2 weeks. He denies any alcohol or tobacco use. He is maintained on atorvastatin 40mg and Fenofibrate 145mg and reports no missed doses. He presented to the ED yesterday morning for pain. Lipase was 1712. US with fatty liver post cholecystectomy, otherwise normal with a 5mm CBD. He was given a limited number of oxycodone, advised to stay with clear liquids and discharged. However, pain and was accompanied by nausea, vomiting and diarrhea. Because the pain worsened this morning, he returned for admission. On arrival this morning, Lipase was 7884, WBC 14 and LFT[address] were normal. CT was deferred. He is awake alert oriented hemodynamically stable. He tells me his pain is "a little better with the pain meds," and his nausea/vomiting seem to have resolved. Allergies Allergy/AdvReac Type Severity Reaction Status Date / Time No Known Allergies Allergy Verified 03/22/19 03:05 Home Medications Home Medications Medication Instructions Recorded Confirmed Type Jardiance 10 mg PO QAM 09/16/18 03/22/19 History aspirin 325 mg PO HS 09/16/18 03/22/19 History atorvastatin 40 mg PO HS 09/16/18 03/22/19 History diphenhydramine-acetaminophen 2 tab PO HS PRN 09/16/18 03/22/19 History [Tylenol PM Extra Strength] gabapentin 300 mg PO TID 09/16/18 03/22/19 History losartan 25 mg PO QPM 09/16/18 03/22/19 History metformin 1,000 mg PO BIDM 09/16/18 03/22/19 History niacin 1,000 mg PO HS 09/16/18 03/22/19 History niacin 500 mg PO HS 09/16/18 03/22/19 History omeprazole 20 mg PO QAM 09/16/18 03/22/19 History diclofenac sodium 50 mg PO TID #0 tab 09/19/18 03/22/19 Rx duloxetine 30 mg PO DAILY PRN 02/13/19 03/22/19 History fenofibrate nanocrystallized 145 mg PO QAM 02/13/19 03/22/19 History gabapentin 600 mg PO TID 02/13/19 03/22/19 History docusate sodium [Colace] 100 mg PO BID #60 cap 03/21/19 03/22/19 Rx ondansetron HCl [Zofran] 4 mg PO Q6H #6 tab 03/21/19 03/22/19 Rx oxycodone 5 mg PO Q6H #14 tab 03/21/19 03/22/19 Rx sennosides [Senokot] 8.6 mg PO HS #30 tab 03/21/19 03/22/19 Rx Patient History Medical History Pancreatitis (Acute) Surgical History History of cholecystectomy Social History Preferred Language: Wolof Communication Ability: Effective Tumbling Instructor Required: No Beliefs That Will Affect Care: None Current Living Situation: Parent Current Living Situation Comment: both parents Other Information That Helps Us Care for You: No Feels Safe at Home: Yes Safety Concerns: Feels Safe At This Time Smoking Status: Never smoker Tobacco Type: cigarettes Do You Dip or Chew Tobacco: No Second Hand Exposure: No Tobacco Cessation Education Requested by Patient: No Hx Alcohol Use: No Hx Substance Use: No Review of Systems Review of Systems: ROS: Gen: + dizziness with the pain, general weakness, No fevers or weight loss Eyes: No eye redness, or pain, no recent vision changes Resp: No SOB, no cough Cardio: No palpitations/irregular beats, no chest pain GI: + upper abdomen pain, + nausea, + vomiting, + diarrhea : Denies pain on urination Skin: No jaundice, itching or new rashes Physical Exam Constitutional: WD/WN, vitals as above Eyes: PERRL, conjunctivae normal, anicteric sclerae ENMT: external ear and nose normal, oropharynx normal Neck: trachea midline, no thyromegaly Respiratory: normal respiratory effort, lungs clear to auscultation Cardiovascular: RRR, no murmur, no edema Gastrointestinal (Abdomen): Inspection/Auscultation: abdomen normal to inspection Percussion/Palpation: + abdomen tender (every tender over the epigastric and periumbilical areas), + guarding and abdomen soft; abdomen not rigid Skin: no rashes, warm and dry Neurologic: PERRL, EOMI, accommodation nl, no face palsy, no dysarthria Psychiatric: A+Ox3, euthymic affect Lymphatic: no cervical or axillary lymphadenopathy Results & Data Vital Signs (Past 12 Hours) Vital Signs Temp Pulse Pulse Resp BP BP Pulse Ox 03/22/19 05:35 37 C 77 139/83 03/22/19 04:43 83 18 173/97 H 96 03/22/19 04:00 85 17 160/91 H 97 03/22/19 02:58 81 24 93 07/24/19 02:28 36.9 C 92 H 18 148/90 H 98 Laboratory Results WBC 14, hemoglobin 13, hematocrit 39, platelets 193, BUN 12, creatinine 0.7. Diagnostic Findings Abdominal ultrasound 03/21: 1. Fatty replacement of the liver. 2. Otherwise negative study postcholecystectomy. 3. No change from the prior exam. (1) Pancreatitis Acute pancreatitis complication: unspecified Chronicity: acute Pancreatitis type: unspecified pancreatitis type Qualified Code(s): K85.90 - Acute pancreatitis without necrosis or infection, unspecified
[2019-03-22 07:43] LABS: Chol HDL Ratio 3; Cholesterol 62 mg/dl (0-200); HDL Cholesterol 18 mg/dl; Triglycerides 338 mg/dl (0-150); VLDL Cholesterol 68 mg/dl
[2019-03-22] MEDS: DOCUSATE SODIUM 100 MG CAP PO SCH ×2 (08:16→20:57)
[2019-03-22] MEDS: GABAPENTIN 300 MG CAP PO SCH ×3 (08:16→20:58)
[2019-03-22] MEDS: FENOFIBRATE NANOCRYSTALLIZED 145 MG TABLET PO SCH (08:17)
[2019-03-22] MEDS: GABAPENTIN 600 MG TAB PO SCH ×3 (08:17→20:59)
[2019-03-22] MEDS: PANTOprazole 40 MG TAB PO SCH (08:17)
[2019-03-22] MEDS: INSULIN ASPART 100 UNITS/ML 3 ML PEN SC SCH ×3 (08:56→18:22)
[2019-03-22] MEDS: HYDROmorphone INJ 1 MG/ML SYRINGE IV PRN ×3 (10:57→22:06)
--- NOTE | 2019-03-22 11:14 | Hospitalist Progress Note ---
Date of Service March 22, 2019 Assessment & Plan (1) Pancreatitis: 38-year-old male who presents with recurrent pancreatitis. Recurrent pancreatitis -secondary to [place] type IV hyperlipoproteinemia status post Whipple's procedure -admission lipase is trended above 7000, trend lipase -continue IV Ringer lactate 200 mL per hour, IV antiemetics, -keep NPO for bowel rest -increase hydromorphone for pain control -bowel regimen to prevent narcotic induce constipation -antiemetics -follow gastroenterology recommendations hyperlipoproteinemia ( [place] type IV) -continue aspirin, statin, niacin,and Tricor. -trend lipase Gastroesophageal reflux disease -Continue Prilosec. Type 2 diabetes mellitus with out fpc current use of insulin - Holding metformin, Jardiance -Placed on insulin sliding scale. Hypertension -continue Cozaar History of Chronic back pain. -hold diclofenac for now -getting Dilaudid p.r.n. currently -Continue gabapentin. Deep venous thrombosis prophylaxis, sequential compression devices, encourage ambulation full code Subjective Patient seen and examined at the bedside. having abdominal discomfort that is generalized. no bowel movement today patient awake and alert and breathing on room air. no chest pain. no vomiting. Physical Exam Constitutional: cooperative Eyes: PERRL, conjunctivae normal, anicteric sclerae EOM intact bilaterally ENMT: external ear and nose normal, oropharynx normal Neck: normal visual inspection Respiratory: normal respiratory effort, lungs clear to auscultation Cardiovascular: RRR, no murmur, no edema Gastrointestinal (Abdomen): Percussion/Palpation: abdomen soft positive bowel sounds. no point tenderness on palpation Musculoskeletal: Head/Neck/Chest: normocephalic and head atraumatic Neurologic: PERRL, EOMI, accommodation nl, no face palsy, no dysarthria CN's II-XI intact bilaterally Psychiatric: A+Ox3, euthymic affect Results & Data Vital Signs (Past 12 Hours) Vital Signs Temp Pulse Pulse Resp BP BP Pulse Ox 03/22/19 07:37 37.0 C 86 20 153/84 H 94 03/22/19 05:35 37 C 77 139/83 03/22/19 04:43 83 18 173/97 H 96 03/22/19 04:00 85 17 160/91 H 97 03/22/19 02:58 81 24 93 03/22/19 02:28 36.9 C 92 H 18 148/90 H 98 (1) Pancreatitis Acute pancreatitis complication: unspecified Chronicity: acute Pancreatitis type: unspecified pancreatitis type Qualified Code(s): K85.90 - Acute pancreatitis without necrosis or infection, unspecified
[2019-03-22] MEDS ORDERED: POLYETHYLENE (MIRALAX) 17 GM PACK PO PRN (11:17)
[2019-03-22] MEDS ORDERED: Nursing to Pharmacy Communication ONE (12:07)
[2019-03-22] MEDS: SENNA 8.6 MG TAB PO SCH (13:15)
--- NOTE | 2019-03-22 15:53 | Magnetic Resonance Report ---
MRCP CLINICAL HISTORY: Recurrent pancreatitis. Abdominal pain. Nausea. Reported history of pancreatic surg danielle. COMPARISON STUDY: Abdominal CT dated 03/25/2018. Abdominal ultrasound dated 03/21/2019. MRCP dated 05/31. TECHNIQUE: Abdominal MRCP is performed utilizing various T2-weighted sinuses the axial and coronal pl anes. IV contrast was not administered for this examination. 3-D reformats are created and assessed. The examination is difficult to interpret due to unspecified postoperative changes. FINDINGS: The gallbladder is surgically absent. There is no intra or extrahepatic biliary ductal dilatation. Th e common bile duct measures up to 3 mm, and a hepaticojejunostomy is noted. There are no filling defe cts to suggest choledocholithiasis. The pancreatic duct is normal in caliber in the pancreatic body a nd tail. This measures up to 2 mm diameter. The pancreatic duct is not well-visualized in the region of the pancreatic head. There are no filling defects to suggest intraductal stones. The liver is enlarged and measures 22.4 cm in length. Steatosis was shown on prior examinations. The spleen is enlarged measuring 16.6 cm in length. There is no bowel obstruction. A small volume of uppe r abdominal ascites is noted. The adrenal glands and kidneys are grossly unremarkable, noting a 1.5 c m cyst in the upper pole of the left kidney. The pancreas appears mildly edematous and there is perip ancreatic fluid. The distal pancreas appears truncated, and may be surgically absent. No organized pe ripancreatic collection is seen. There is no pericardial effusion. Trace pleural effusions are identified. Segmental atelectasis is no sugar at the right lung base. No destructive bony lesion is suggested. IMPRESSION: 1. Status post cholecystectomy, hepaticojejunostomy, and possibly distal pancreatectomy. 2. The pancreas appears edematous and there is peripancreatic fluid. Correlate clinically and with se rum amylase/lipase levels for evidence of acute pancreatitis. 3. There is no intra or extrahepatic biliary ductal dilatation. There is no choledocholithiasis. 4. The imaged portions of the pancreatic duct are normal in caliber, with no intraluminal filling def ects to suggest stones. The hepatic duct is not well-visualized in the region of the pancreatic head. 5. There is a small volume of upper abdominal ascites. 6. Hepatomegaly and hepatic steatosis. 7. Splenomegaly. 8. Trace pleural effusions. Electronically signed by: Navarro Pulido M.D. 03/22/2019 3:52 PM
[2019-03-22] MEDS ORDERED: ACETAMINOPHEN 1,000 MG/100 ML VIAL IV ONE (19:30)
[2019-03-22] MEDS: ASPIRIN 325 MG ECTAB PO SCH (20:57)
[2019-03-22] MEDS: LOSARTAN POTASSIUM 25 MG TAB PO SCH (20:57)
[2019-03-22] MEDS: ATORVASTATIN 40 MG TAB PO SCH (20:58)
[2019-03-22] MEDS ORDERED: ACETAMINOPHEN 500 MG TAB PO PRN (21:00)
[2019-03-22] MEDS ORDERED: NON-FORMULARY MEDICATION (Niacin 500 MG) PO SCH (21:00)
[2019-03-22] MEDS: OXYCODONE HCL IR 5 MG TAB (IMMEDIATE RELEASE) PO PRN (21:04)
[2019-03-22] MEDS: NIACIN EXTENDED REL 500 MG TABCR PO SCH (21:05)
[2019-03-22] MEDS ORDERED: IBUPROFEN 200 MG TAB PO STA (22:14)
[2019-03-23] MEDS: LACTATED RINGER'S 1,000 ML IV SCH ×5 (02:00→23:49)
[2019-03-23] MEDS: OXYCODONE HCL IR 5 MG TAB (IMMEDIATE RELEASE) PO PRN ×2 (06:21→15:04)
[2019-03-23] MEDS: INSULIN ASPART 100 UNITS/ML 3 ML PEN SC SCH ×5 (06:26→21:24)
[2019-03-23 06:29] LABS: Basophils # (auto) 0.01 K/uL (0-0.2); Basophils % (auto) 0.1 %; Eosinophils # (auto) 0.08 K/uL (0-0.5); Eosinophils % (auto) 0.6 %; Hemoglobin 11.9 g/dL (14.0-18.0); Immature Granulocytes # (auto) 0.03 K/uL (0.00-0.02); Immature Granulocytes % (auto) 0.2 %; Lymphocytes # (auto) 1.19 K/uL (1.2-3.4); Lymphocytes % (auto) 9.6 %; Mean Corpuscular Hgb Conc 33.1 g/dL (32-36); Mean Corpuscular Volume 76.1 fL (80-100); Mean Platelet Volume 9.6 fL (7.4-10.4); Monocytes # (auto) 1.03 K/uL (0.11-0.59); Monocytes % (auto) 8.3 %; Neutrophils # (auto) 10.05 K/uL (1.4-6.5); Neutrophils % (auto) 81.2 %; Platelet Count 129 K/uL (130-400); RDW Standard Deviation 44.4 fL (36.4-46.3); Red Blood Count 4.73 M/uL (4.7-6.1); White Blood Count 12.39 K/uL (4.8-10.8)
[2019-03-23 07:06] LABS: Albumin Level 3.2 gm/dl (3.4-5.0); BUN Creatinine Ratio 11.2 (10-20); Creatinine Clr Calc Pharmacy 155.9 ml/min; Est GFR (Non-African American) 112.2; Potassium 3.6 mmol/L (3.5-5.1)
[2019-03-23 07:09] LABS: Albumin Globulin Ratio 0.9 (0.9-2); Bilirubin,Total 0.9 mg/dl (0.2-1); Globulin 3.7 gm/dl (2.5-4.0); Total Protein 6.9 gm/dl (6.4-8.2)
[2019-03-23 08:15] LABS: Estimated Average Glucose 140 mg/dl; Hemoglobin A1C 6.5 % (4.5-5.6)
--- NOTE | 2019-03-23 08:25 | Gastroenterology Progress Note ---
Date of Service March 23, 2019 Assessment & Plan (1) Pancreatitis: 1. Advance diet as tolerated. 2. OP EUS in 2-4 weeks - already scheduled. 3. Continue f/u with cardiology in [place] for management of hypertriglyceridemia and plasmapheresis. 4. Pt encouraged to consider more frequent plasmapheresis. 5. No plans for further diagnostic testing at this time. 6. GI will sign off. Please notify us if new/worsening GI symptoms. Supervising Physician Co-Signing Physician Notes I saw and evaluated the patient. He presents with acute pancreatitis thought to be related to hypertriglyceridemia. Patient has been followed by [facility] for plasmapheresis to control his hyperlipidemia for several years. Given the recurrent symptoms perhaps an MRCP normal. Recommend OP EUS. Physical examination No obvious distress Mild epigastric tenderness Impression: History of recurrent pancreatitis thought to be related to hypertriglyceridemia treated with plasmapheresis. At this point I would defer to subject matter expert at [facility] for other recommendations with regard to his hyper triglyceridemia control. We would suggest endoscopic ultrasound as previously scheduled Review of Systems Review of Systems: ROS: Gen: No dizziness with the pain, general weakness, No fevers or weight loss Eyes: No eye redness, or pain, no recent vision changes Resp: No SOB, no cough Cardio: No palpitations/irregular beats, no chest pain GI: Pain much improved, no nausea/vomiting, + 2 diarrhea BMs today : Denies pain on urination Skin: No jaundice, itching or new rashes Physical Exam Constitutional: WD/WN, vitals as above Eyes: PERRL, conjunctivae normal, anicteric sclerae ENMT: external ear and nose normal, oropharynx normal Neck: trachea midline, no thyromegaly Respiratory: normal respiratory effort, lungs clear to auscultation Cardiovascular: RRR, no murmur, no edema Gastrointestinal (Abdomen): Inspection/Auscultation: abdomen normal to inspection Percussion/Palpation: + abdomen tender (mild, epigastric and LUQ) and abdomen soft; no guarding and abdomen not rigid Skin: no rashes, warm and dry Neurologic: PERRL, EOMI, accommodation nl, no face palsy, no dysarthria Psychiatric: A+Ox3, euthymic affect Lymphatic: no cervical or axillary lymphadenopathy Results & Data Vital Signs (Past 12 Hours) Vital Signs Temp Pulse Resp BP BP Pulse Ox 03/23/19 07:00 36.9 C 98 H 18 135/83 95 03/23/19 00:00 37.2 C 103 H 16 119/67 94 03/22/19 21:30 38.0 C H 03/22/19 20:26 37.9 C H 88 20 152/86 H 94 Laboratory Results WBC 14->12; Hb 13.3->11.9, Cr 0.82. Lipase >3K --->324 today. Diagnostic Findings MRCP 03/22: 1. Status post cholecystectomy, hepaticojejunostomy, and possibly distal pancreatectomy. 2. The pancreas appears edematous and there is peripancreatic fluid. Correlate clinically and with serum amylase/lipase levels for evidence of acute pancreatitis. 3. There is no intra or extrahepatic biliary ductal dilatation. There is no choledocholithiasis. 4. The imaged portions of the pancreatic duct are normal in caliber, with no intraluminal filling defects to suggest stones. The hepatic duct is not well- visualized in the region of the pancreatic head. 5. There is a small volume of upper abdominal ascites. 6. Hepatomegaly and hepatic steatosis. 7. Splenomegaly. 8. Trace pleural effusion (1) Pancreatitis Acute pancreatitis complication: unspecified Chronicity: acute Pancreatitis type: unspecified pancreatitis type Qualified Code(s): K85.90 - Acute pancreatitis without necrosis or infection, unspecified
[2019-03-23] MEDS: PANTOprazole 40 MG TAB PO SCH (08:52)
[2019-03-23] MEDS: GABAPENTIN 600 MG TAB PO SCH ×3 (08:52→20:18)
[2019-03-23] MEDS: DOCUSATE SODIUM 100 MG CAP PO SCH ×2 (08:52→20:16)
[2019-03-23] MEDS: GABAPENTIN 300 MG CAP PO SCH ×3 (08:52→20:17)
[2019-03-23] MEDS: SENNA 8.6 MG TAB PO SCH (08:53)
[2019-03-23] MEDS: HYDROmorphone INJ 1 MG/ML SYRINGE IV PRN ×2 (08:54→20:12)
--- NOTE | 2019-03-23 09:57 | Hospitalist Progress Note ---
Date of Service March 23, 2019 Assessment & Plan (1) Pancreatitis: 38-year-old male who presents with recurrent pancreatitis. Recurrent pancreatitis Fever -secondary to [place] type IV hyperlipoproteinemia status post Whipple's procedure -admission lipase is peaked to 7884 on 03/22/19, have downtrended to 324 on 03/23/19 -Patient had fever in late afternoon/early evening of 03/23/19 as 38.4 F; otherwise feeling better from abdominal pain while on increased pain medications; blood cultures ordered to be drawn and patient to get IV acetaminophen for the fever review of the MRI cholangiography which was performed today did not show obvious areas of infection and antibiotics was held off as elevated temperature may be from pancreatitic inflammation and not a bacterial infection -follow blood cultures -since admission patient have been on continue IV Ringer lactate 200 mL per skip r, antiemetics, and pain medications prn including oxycodone and dilaudid -continue IV fluids for now, increase bowel regimen to include colace in addition to senna and prn miralax -abdominal pain better controlled as of 03/23/19 and patient is interested to do clear liquid diet and he is encouraged to ambulate -follow gastroenterology recommendations hyperlipoproteinemia ( Raquel type IV) -continue aspirin, statin, niacin,and Tricor. -lipase downtrending Gastroesophageal reflux disease -Continue Prilosec. Type 2 diabetes mellitus with out intermediate card tender current use of insulin - Holding metformin, Jardiance -continue insulin sliding scale. Hypertension -continue Cozaar History of Chronic back pain. -hold diclofenac for now -getting Dilaudid p.r.n. currently -Continue gabapentin. Deep venous thrombosis prophylaxis, sequential compression devices, encourage ambulation full code Subjective Patient had fever in late afternoon/early evening of 03/23/19 as 38.4 F; otherwise feeling better from abdominal pain while on increased pain medications; blood cultures ordered to be drawn and patient to get IV acetaminophen for the fever review of the MRI cholangiography which was performed today did not show obvious areas of infection and antibiotics was held off as elevated temperature may be from pancreatitic inflammation and not a bacterial infection abdominal pain better controlled as of 03/23/19 and patient is interested to do clear liquid diet and he is encouraged to ambulate no chest pain. no shortness of breath. no vomiting. no bowel movement yesterday or today. no lightheadedness. no dizziness Physical Exam Constitutional: cooperative Eyes: PERRL, conjunctivae normal, anicteric sclerae EOM intact bilaterally ENMT: external ear and nose normal, oropharynx normal Neck: normal visual inspection Respiratory: normal respiratory effort, lungs clear to auscultation Cardiovascular: RRR, no murmur, no edema Gastrointestinal (Abdomen): normal bowel sounds, soft, nontender, no hepatosplenomegaly Musculoskeletal: Head/Neck/Chest: normocephalic and head atraumatic Neurologic: PERRL, EOMI, accommodation nl, no face palsy, no dysarthria CN's II-XI intact bilaterally Psychiatric: A+Ox3, euthymic affect Results & Data Vital Signs (Past 12 Hours) Vital Signs Temp Pulse Resp BP Pulse Ox 03/23/19 07:00 36.9 C 98 H 18 135/83 95 03/23/19 00:00 37.2 C 103 H 16 119/67 94 (1) Pancreatitis Acute pancreatitis complication: unspecified Chronicity: acute Pancreatitis type: unspecified pancreatitis type Qualified Code(s): K85.90 - Acute pancreatitis without necrosis or infection, unspecified
[2019-03-23] MEDS ORDERED: DOCUSATE SODIUM SYRUP 100 MG/10 ML UDC PO SCH (10:15)
[2019-03-23] MEDS ORDERED: Nursing to Pharmacy Communication ONE (11:22)
[2019-03-23] MEDS: FENOFIBRATE NANOCRYSTALLIZED 145 MG TABLET PO SCH (11:25)
[2019-03-23] MEDS ORDERED: ACETAMINOPHEN 1,000 MG/100 ML VIAL IV STA (16:04)
[2019-03-23] MEDS: metroNIDAZOLE 500 MG/100 ML BAG IV SCH ×2 (16:47→23:49)
[2019-03-23] MEDS: CIPROFLOXACIN 400 MG/200 ML BAG IV SCH (18:07)
[2019-03-23] MEDS: LOSARTAN POTASSIUM 25 MG TAB PO SCH (20:15)
[2019-03-23] MEDS: ASPIRIN 325 MG ECTAB PO SCH (20:15)
[2019-03-23] MEDS: ATORVASTATIN 40 MG TAB PO SCH (20:16)
[2019-03-23] MEDS: NIACIN EXTENDED REL 500 MG TABCR PO SCH (20:16)
[2019-03-24] MEDS: HYDROmorphone INJ 1 MG/ML SYRINGE IV PRN ×3 (00:15→22:20)
[2019-03-24] MEDS: LACTATED RINGER'S 1,000 ML IV SCH ×2 (03:55→08:32)
[2019-03-24] MEDS: CIPROFLOXACIN 400 MG/200 ML BAG IV SCH ×2 (05:37→17:31)
[2019-03-24 06:07] LABS: Basophils # (auto) 0.01 K/uL (0-0.2); Basophils % (auto) 0.2 %; Eosinophils # (auto) 0.09 K/uL (0-0.5); Eosinophils % (auto) 1.4 %; Hematocrit (blood only) 29.5 % (42-52); Hemoglobin 9.6 g/dL (14.0-18.0); Immature Granulocytes # (auto) 0.01 K/uL (0.00-0.02); Immature Granulocytes % (auto) 0.2 %; Lymphocytes # (auto) 1.32 K/uL (1.2-3.4); Lymphocytes % (auto) 20.5 %; Mean Corpuscular Hgb Conc 32.5 g/dL (32-36); Mean Corpuscular Volume 76.6 fL (80-100); Mean Platelet Volume 10.2 fL (7.4-10.4); Monocytes % (auto) 9.3 %; Neutrophils # (auto) 4.41 K/uL (1.4-6.5); Neutrophils % (auto) 68.4 %; Platelet Count 114 K/uL (130-400); RDW Coefficient of Variation 15.9 % (11.5-14.5); RDW Standard Deviation 44.4 fL (36.4-46.3); Red Blood Count 3.85 M/uL (4.7-6.1); White Blood Count 6.44 K/uL (4.8-10.8)
[2019-03-24 06:46] LABS: BUN Creatinine Ratio 17.1 (10-20); Calcium 8.4 mg/dl (8.5-10.1); Creatinine Clr Calc Pharmacy 182.7 ml/min; Est GFR (African American) 138.8; Est GFR (Non-African American) 119.7; Potassium 3.4 mmol/L (3.5-5.1)
[2019-03-24] MEDS: PANTOprazole 40 MG TAB PO SCH (08:00)
[2019-03-24] MEDS: GABAPENTIN 300 MG CAP PO SCH ×3 (08:00→20:52)
[2019-03-24] MEDS: GABAPENTIN 600 MG TAB PO SCH ×3 (08:00→20:52)
[2019-03-24] MEDS: FENOFIBRATE NANOCRYSTALLIZED 145 MG TABLET PO SCH (08:01)
[2019-03-24] MEDS: SENNA 8.6 MG TAB PO SCH (08:01)
[2019-03-24] MEDS: metroNIDAZOLE 500 MG/100 ML BAG IV SCH ×3 (08:05→23:35)
[2019-03-24] MEDS: INSULIN ASPART 100 UNITS/ML 3 ML PEN SC SCH ×4 (08:26→20:58)
--- NOTE | 2019-03-24 09:40 | Hospitalist Progress Note ---
Date of Service March 24, 2019 Assessment & Plan (1) Pancreatitis: 38-year-old male who presents with recurrent pancreatitis. Recurrent pancreatitis Fever -secondary to [place] type IV hyperlipoproteinemia status post Whipple's procedure -admission lipase is peaked to 7884 on 03/22/19, have downtrended to 324 on 03/23/19 -blood cultures from 03/22/19 no growth -Patient had fever in late afternoon/early evening of 03/22/19 as 38.4 F; otherwise feeling better from abdominal pain while on increased pain medications; blood cultures ordered to be drawn and patient to get IV acetaminophen for the fever review of the MRI cholangiography which was performed on 03/22/19 did not show obvious areas of infection and antibiotics was held off as elevated temperature may be from pancreatitic inflammation and not a bacterial infection -03/23/19: started on clear liquid diet. evening temperature of 38.2 celsius and patient given acetaminophen, blood cultures were redrawn on 03/23/19, IV ciprofloxacin and IV Flagyl started on 03/23/19 -03/24/19: abdominal pain appears much improved, IV Ringers 200 ml/hr stopped. plan to advance from clear liquids to full liquids, continue antiemetics, pain medication, bowel regimen hyperlipoproteinemia ( [place] type IV) -continue aspirin, statin, niacin,and Tricor. -lipase downtrended Anemia -admission Hgb 15.3 then 13.3 then 11.9 then 9.6 on 03/24/19 -likely hemodilutional anemia from IV Ringers Lactate to treat pancreatitis. Lactated Ringer's fluid stopped on 03/24/19 -send FOBT, trend Hgb Gastroesophageal reflux disease -Continue Prilosec. Type 2 diabetes mellitus without chcf current use of insulin - Holding metformin, Jardiance -continue insulin sliding scale. Hypertension -continue Cozaar History of Chronic back pain. -hold diclofenac for now -getting Dilaudid p.r.n. currently -Continue gabapentin. Deep venous thrombosis prophylaxis, sequential compression devices, encourage ambulation full code Subjective Patient feeling comfortable today. no acute pain of the abdomen. he was able to tolerate the clear liquid diet. no vomiting. patient denies blood from orifices. no chest pain. no palpitations. no dizziness Physical Exam Constitutional: cooperative Eyes: PERRL, conjunctivae normal, anicteric sclerae EOM intact bilaterally ENMT: external ear and nose normal, oropharynx normal Neck: normal visual inspection Respiratory: normal respiratory effort, lungs clear to auscultation Cardiovascular: RRR, no murmur, no edema Gastrointestinal (Abdomen): normal bowel sounds, soft, nontender, no hepatosplenomegaly Percussion/Palpation: abdomen soft Musculoskeletal: Head/Neck/Chest: normocephalic and head atraumatic Neurologic: PERRL, EOMI, accommodation nl, no face palsy, no dysarthria CN's II-XI intact bilaterally Psychiatric: A+Ox3, euthymic affect Results & Data Vital Signs (Past 12 Hours) Vital Signs Temp Pulse Resp BP Pulse Ox 03/24/19 07:37 36.9 C 83 18 107/68 95 03/24/19 00:00 37.2 C 63 20 111/70 98 (1) Pancreatitis Acute pancreatitis complication: unspecified Chronicity: acute Pancreatitis type: unspecified pancreatitis type Qualified Code(s): K85.90 - Acute pancreatitis without necrosis or infection, unspecified
[2019-03-24] MEDS: DOCUSATE SODIUM 100 MG CAP PO SCH ×2 (09:41→20:51)
[2019-03-24] MEDS: OXYCODONE HCL IR 5 MG TAB (IMMEDIATE RELEASE) PO PRN (11:00)
[2019-03-24] MEDS: LOSARTAN POTASSIUM 25 MG TAB PO SCH (20:50)
[2019-03-24] MEDS: ASPIRIN 325 MG ECTAB PO SCH (20:50)
[2019-03-24] MEDS: NIACIN EXTENDED REL 500 MG TABCR PO SCH (20:51)
[2019-03-24] MEDS: ATORVASTATIN 40 MG TAB PO SCH (20:51)
[2019-03-25] MEDS: HYDROmorphone INJ 1 MG/ML SYRINGE IV PRN (03:35)
[2019-03-25] MEDS: CIPROFLOXACIN 400 MG/200 ML BAG IV SCH (05:24)
[2019-03-25] MEDS: metroNIDAZOLE 500 MG/100 ML BAG IV SCH (08:56)
[2019-03-25] MEDS: PANTOprazole 40 MG TAB PO SCH (08:57)
[2019-03-25] MEDS: GABAPENTIN 300 MG CAP PO SCH ×2 (08:57→13:01)
[2019-03-25] MEDS: GABAPENTIN 600 MG TAB PO SCH ×2 (08:57→13:01)
[2019-03-25] MEDS: SENNA 8.6 MG TAB PO SCH (08:57)
[2019-03-25] MEDS: FENOFIBRATE NANOCRYSTALLIZED 145 MG TABLET PO SCH (08:57)
[2019-03-25] MEDS: DOCUSATE SODIUM 100 MG CAP PO SCH (08:58)
[2019-03-25] MEDS: INSULIN ASPART 100 UNITS/ML 3 ML PEN SC SCH ×2 (09:01→13:01)
--- NOTE | 2019-03-25 10:30 | Hospitalist Progress Note ---
Date of Service March 25, 2019 Assessment & Plan (1) Pancreatitis: 38-year-old male who presents with recurrent pancreatitis. 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 -admission lipase is peaked to 7884 on 03/22/19, have downtrended to 324 on 03/23/19 -blood cultures from 03/22/19 no growth -Patient had fever in late afternoon/early evening of 03/22/19 as 38.4 F; otherwise feeling better from abdominal pain while on increased pain medications; blood cultures ordered to be drawn and patient to get IV acetaminophen for the fever review of the MRI cholangiography which was performed on 03/22/19 did not show obvious areas of infection and antibiotics was held off as elevated temperature may be from pancreatitic inflammation and not a bacterial infection -03/23/19: started on clear liquid diet. evening temperature of 38.2 celsius and patient given acetaminophen, blood cultures were redrawn on 03/23/19, IV ciprofloxacin and IV Flagyl started on 03/23/19 -03/24/19: abdominal pain appears much improved, IV Ringers 200 ml/hr stopped. plan to advance from clear liquids to full liquids, continue antiemetics, pain medication, bowel regimen 03/25/19 to summarize on discharge day Patient had fever in the hospital likely from inflammation from pancreatitis. Patient's blood cultures were negative x 2 but was on IV ciprofloxacin and IV metronidazole from 03/23/19 and then transition to oral ciprofloxacin and oral metronidazole. Patient should complete 5 more days of oral ciprofloxacin 500 mg every 12 hours and metronidazole 500 mg every 8 hours for 5 more days to complete antibiotics in case there is any underlying abdominal infection even though this is unlikely Patient should not take the Cymbalta (Duloxetine) at home while on ciprofloxacin to avoid any potential medication interactions Antibiotics electronically sent to [facility] pharmacy [address] [place] [id number] Patient should take low fat, diabetes diet patient should have blood count rechecked by primary care doctor on follow up because of hemodilutional anemia from the IV fluids for the pancreatitis Follow up appointments (03/28/2019 11:00 AM Provider Mena Esquivel MD Department Internal Medicine [facility] Date: 04/18/2019 Time: 8:00 AM Status: Scheduled Location: ENDOSCOPY [facility] Room: [facility] Endo 4 Service: Gastroenterology OUTPATIENT SURGERY [place] 05/05/2019 3:30 PM Provider Juan Manuel Sanchez DO Department Cardiology, [facility] 05/30/2019 3:00 PM Provider Sea Samuels MD Department Cardiology [facility] 06/08/2019 3:00 PM Provider Claudio Blackwood MD Department Nephrology, [facility]) hyperlipoproteinemia ( [place] type IV) -continue aspirin, statin, niacin,and Tricor. -lipase downtrended on this hospitalization Hemodilutional Anemia -admission Hgb 15.3 then 13.3 then 11.9 then 9.6 on 03/24/19 -likely hemodilutional anemia from IV Ringers Lactate to treat pancreatitis. Lactated Ringer's fluid stopped on 03/24/19 -FOBT is negative and hemodynamically stable -patient should have blood count rechecked by primary care doctor on follow up because of hemodilutional anemia from the IV fluids for the pancreatitis Gastroesophageal reflux disease -Continue Prilosec. Type 2 diabetes mellitus without fdc current use of insulin -given sliding scale insulin while in the hospital with metformin and jardiance held -patient to resume metformin and jardiance on discharge Hypertension -continue Cozaar History of Chronic back pain. -controlled Deep venous thrombosis prophylaxis, sequential compression devices while in hospital, ambulation full code Discharge diagnosis recurrent pancreatitis, hyperlipoproteinemia ([place] Type IV), Fever, Hypertension, Type 2 diabetes mellitus without complication without fdc current use of insulin, Hemodilutional anemia Subjective Patient has been afebrile overnight. abdomen is pain free. no bleeding from orifices. no chest pain. no shortness of breath. no vomiting from the diet. no dizziness. no lightheadedness. patient ready to go home and discharge plans discussed Physical Exam Constitutional: cooperative Eyes: PERRL, conjunctivae normal, anicteric sclerae EOM intact bilaterally ENMT: external ear and nose normal, oropharynx normal Neck: normal visual inspection Respiratory: normal respiratory effort, lungs clear to auscultation Cardiovascular: RRR, no murmur, no edema Gastrointestinal (Abdomen): normal bowel sounds, soft, nontender, no hepatosplenomegaly Percussion/Palpation: abdomen soft Musculoskeletal: Head/Neck/Chest: normocephalic and head atraumatic Neurologic: PERRL, EOMI, accommodation nl, no face palsy, no dysarthria CN's II-XI intact bilaterally Psychiatric: A+Ox3, euthymic affect Results & Data Vital Signs (Past 12 Hours) Vital Signs Temp Pulse Resp BP Pulse Ox 03/25/19 07:56 36.5 C 74 16 105/68 94 03/24/19 23:47 36.7 C 76 15 105/64 95 (1) Pancreatitis Acute pancreatitis complication: unspecified Chronicity: acute Pancreatitis type: unspecified pancreatitis type Qualified Code(s): K85.90 - Acute pancreatitis without necrosis or infection, unspecified
--- NOTE | 2019-03-25 10:36 | Discharge Summary ---
Date of Service March 25, 2019 Admission HPI Per Admitting Provider HISTORY OF PRESENT ILLNESS: This is a 38-year-old male with past medical history significant for recurrent pancreatitis status post Whipple's procedure, hypertriglyceridemia secondary to [place] type IV hyperlipoproteinemia. Gets periodic apheresis every 2 weeks at [facility], today is the day for his apheresis. Past tobacco abuse, choledochal cyst status post surgery, chronic back pain, type 2 diabetes, chronic anemia, hypertension, GERD. Presents with abdominal pain. The patient was here on 02/12/2019 with pancreatitis that got resolved with conservative management. Again, the patient says yesterday morning at 4:00 a.m. he woke up with abdominal pain, came to the ER. His lipase was at that time 1700. Advised to follow outpatient, but again the pain was not getting better, so he came back again tonight and his lipase was increased to 7800. When he came, the pain was 8/10 in severity all over the abdomen relating to his back. Also with nausea and one episode of vomiting. Currently, after pain medication, pain is at 2/10 in severity. He also had some diarrhea, no blood in the stool, no black stools. Normal bladder movements. No burning micturitions. No chest pain, no shortness of breath, no cough, no fever, no chills. Appetite is okay. No dysphagia, no headaches. No edema, no rash. Currently resting comfortably and hemodynamically stable. ALLERGIES: No known drug allergies. PAST MEDICAL HISTORY: As mentioned above. PAST SURGICAL HISTORY: EGD with endoscopic ultrasound, excision of a choledochal cyst, lumbar spine injection, resection of the bile duct with fusion, Whipple's procedure, tonsillectomy, and adenoidectomy. MEDICATIONS: Currently, the patient is on atorvastatin 40 mg p.o. daily, metformin 1000 mg p.o. b.i.d., Cymbalta 30 mg p.o. daily, niacin 1500 mg daily, gabapentin 900 mg p.o. t.i.d., Tricor 145 mg p.o. daily, diclofenac 50 mg p.o. t.i.d. Jardiance 5 mg daily, omeprazole 20 mg p.o. daily, losartan 25 mg p.o. daily, aspirin 325 mg p.o. daily. FAMILY HISTORY: Significant for brother has kidney stones, mother has glaucoma, father has diabetes, paternal grandfather has colon cancer and diabetes, maternal grandfather has diabetes, and maternal grandmother has diabetes and breast cancer. SOCIAL HISTORY: Single, lives with his mother. Former smoker, quit in 2006, smoked one-third pack a day for 17 years. No alcohol use, no drug use. REVIEW OF SYMPTOMS: As per HPI. Rest of the review of systems negative. Admission Exam Per Admitting Provider PHYSICAL EXAMINATION: GENERAL: The patient is obese, not in acute distress. VITAL SIGNS: Temperature 36.9, pulse 81, respiratory rate 24, blood pressure 148/90, oxygen 93% on room air. HEENT: No pallor, no icterus. Pupils equal, round, and reactive to light. NECK: No JVD, no neck masses, no carotid bruit. CARDIOVASCULAR: S1, S2 heard, regular rate and rhythm, no murmur, no gallop. RESPIRATORY SYSTEM: Normal AP diameter. No accessory muscle use. No wheezing, no crackles. ABDOMEN: Soft, bowel sounds present. Diffuse mild abdominal tenderness. No guarding, no rigidity, no distention. CENTRAL NERVOUS SYSTEM: Cranial nerves II-XII grossly intact. Nonfocal. EXTREMITIES: No edema, no erythema. Principal Diagnosis recurrent pancreatitis, hyperlipoproteinemia ([place] Type IV), Fever, Hypertension, Type 2 diabetes mellitus without complication without intermediate teacher current use of insulin, Hemodilutional anemia Discharge Exam Constitutional cooperative Eyes PERRL, conjunctivae normal, anicteric sclerae EOM intact bilaterally ENMT external ear and nose normal, oropharynx normal Neck normal visual inspection Respiratory normal respiratory effort, lungs clear to auscultation Cardiovascular RRR, no murmur, no edema Gastrointestinal (Abdomen) normal bowel sounds, soft, nontender, no hepatosplenomegaly Percussion/Palpation: abdomen soft Musculoskeletal Head/Neck/Chest: normocephalic and head atraumatic Neurologic PERRL, EOMI, accommodation nl, no face palsy, no dysarthria CN's II-XI intact bilaterally Psychiatric A+Ox3, euthymic affect Discharge Data Allergies Allergy/AdvReac Type Severity Reaction Status Date / Time No Known Allergies Allergy Verified 03/22/19 03:05 Consultations 03/22/19 03:17 ED Decision to Admit Stat 03/22/19 08:00 Consult Gastroenterology Routine Ordered Studies 03/22/19 14:35 MR MRCP Routine Hospital Course (1) Pancreatitis: 38-year-old male who presents with recurrent pancreatitis. 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 -admission lipase is peaked to 7884 on 03/22/19, have downtrended to 324 on 03/23/19 -blood cultures from 03/22/19 no growth -Patient had fever in late afternoon/early evening of 03/22/19 as 38.4 F; otherwise feeling better from abdominal pain while on increased pain medications; blood cultures ordered to be drawn and patient to get IV acetaminophen for the fever review of the MRI cholangiography which was performed on 03/22/19 did not show obvious areas of infection and antibiotics was held off as elevated temperature may be from pancreatitic inflammation and not a bacterial infection -03/23/19: started on clear liquid diet. evening temperature of 38.2 celsius and patient given acetaminophen, blood cultures were redrawn on 03/23/19, IV ciprofloxacin and IV Flagyl started on 03/23/19 -03/24/19: abdominal pain appears much improved, IV Ringers 200 ml/hr stopped. plan to advance from clear liquids to full liquids, continue antiemetics, pain medication, bowel regimen 03/25/19 to summarize on discharge day Patient had fever in the hospital likely from inflammation from pancreatitis. Patient's blood cultures were negative x 2 but was on IV ciprofloxacin and IV metronidazole from 03/23/19 and then transition to oral ciprofloxacin and oral metronidazole. Patient should complete 5 more days of oral ciprofloxacin 500 mg every 12 hours and metronidazole 500 mg every 8 hours for 5 more days to complete antibiotics in case there is any underlying abdominal infection even though this is unlikely Patient should not take the Cymbalta (Duloxetine) at home while on ciprofloxacin to avoid any potential medication interactions Antibiotics electronically sent to [facility] pharmacy [address] [place] [id number] Patient should take low fat, diabetes diet patient should have blood count rechecked by primary care doctor on follow up because of hemodilutional anemia from the IV fluids for the pancreatitis Follow up appointments (03/28/2019 11:00 AM Provider Mena Esquivel MD Department Internal Medicine [facility] Date: 04/18/2019 Time: 8:00 AM Status: Scheduled Location: ENDOSCOPY [facility] Room: [facility] Endo 4 Service: Gastroenterology OUTPATIENT SURGERY [place] 05/05/2019 3:30 PM Provider Juan Manuel Sanchez DO Department Cardiology, [facility] 05/30/2019 3:00 PM Provider Sea Samuels MD Department Cardiology [facility] 06/08/2019 3:00 PM Provider Claudio Blackwood MD Department Nephrology, [facility]) hyperlipoproteinemia ( [place] type IV) -continue aspirin, statin, niacin,and Tricor. -lipase downtrended on this hospitalization Hemodilutional Anemia -admission Hgb 15.3 then 13.3 then 11.9 then 9.6 on 03/24/19 -likely hemodilutional anemia from IV Ringers Lactate to treat pancreatitis. Lactated Ringer's fluid stopped on 03/24/19 -FOBT is negative and hemodynamically stable -patient should have blood count rechecked by primary care doctor on follow up because of hemodilutional anemia from the IV fluids for the pancreatitis Gastroesophageal reflux disease -Continue Prilosec. Type 2 diabetes mellitus without fpc current use of insulin -given sliding scale insulin while in the hospital with metformin and jardiance held -patient to resume metformin and jardiance on discharge Hypertension -continue Cozaar History of Chronic back pain. -controlled Deep venous thrombosis prophylaxis, sequential compression devices while in hospital, ambulation full code Discharge diagnosis recurrent pancreatitis, hyperlipoproteinemia ([place] Type IV), Fever, Hypertension, Type 2 diabetes mellitus without complication without fpc current use of insulin, Hemodilutional anemia Total Time Total Time Spent Total Time Spent (In Minutes): 40 minutes Total Time Includes: Examination of the Patient, Discharge Planning, Medication Reconciliation and Communication With Other Providers Discharge Plan Discharge Items Patient Disposition: Home - Self-Care Reason For Visit: ABDOMINAL PAIN Discharge Diagnosis: recurrent pancreatitis, hyperlipoproteinemia ([place] Type IV), Fever, Hypertension, Type 2 diabetes mellitus without complication without fpc current use of insulin, Hemodilutional anemia Condition: Good Discharge Goals: Improve disease control Activity: Resume your previous activity Non-emergency contact: Primary Care Provider Call non-emergency contact if: you have any medication questions Follow-up/Referrals: Mena Hernández MD [Primary Care Provider] - Diet: Carb Consistent or DM2 and Low Fat Addtl Provider Instructions: Patient had fever in the hospital likely from inflammation from pancreatitis. Patient's blood cultures were negative x 2 but was on IV ciprofloxacin and IV metronidazole from 03/23/19 and then transition to oral ciprofloxacin and oral metronidazole. Patient should complete 5 more days of oral ciprofloxacin 500 mg every 12 hours and metronidazole 500 mg every 8 hours for 5 more days to complete antibiotics in case there is any underlying abdominal infection even though this is unlikely Patient should not take the Cymbalta (Duloxetine) at home while on ciprofloxacin to avoid any potential medication interactions Antibiotics electronically sent to [facility] pharmacy [address] [place] [id number] Patient should take low fat, diabetes diet patient should have blood count rechecked by primary care doctor on follow up because of hemodilutional anemia from the IV fluids for the pancreatitis Follow up appointments 03/28/2019 11:00 AM Provider Mena Esquivel MD Department Internal Medicine [facility] Date: 04/18/2019 Time: 8:00 AM Status: Scheduled Location: ENDOSCOPY [facility] Room: [facility] Endo Service: Gastroenterology OUTPATIENT SURGERY [place] 05/05/2019 3:30 PM Provider Juan Manuel Sanchez DO Department Cardiology, [facility] 05/30/2019 3:00 PM Provider Sea Samuels MD Department Cardiology [facility] 06/08/2019 3:00 PM Provider Claudio Blackwood MD Department Nephrology, [facility] Prescriptions: New metronidazole 500 mg Tablet 500 mg PO Q8H 5 Days Qty: 15 RF: 0 ciprofloxacin HCl 500 mg Tablet 500 mg PO Q12H 5 Days Qty: 10 RF: 0 acetaminophen 325 mg tablet 325 mg PO Q6H PRN (Reason: fever or pain) 5 Days Qty: 20 RF: 0 Continued gabapentin 600 mg Tablet 600 mg PO TID RF: 0 fenofibrate nanocrystallized 145 mg Tablet 145 mg PO QAM RF: 0 oxycodone 5 mg tablet 5 mg PO Q6H Qty: 14 RF: 0 sennosides [Senokot] 8.6 mg tablet 8.6 mg PO HS Qty: 30 RF: 0 docusate sodium [Colace] 100 mg capsule 100 mg PO BID Qty: 60 RF: 0 ondansetron HCl [Zofran] 4 mg tablet 4 mg PO Q6H Qty: 6 RF: 0 atorvastatin 40 mg Tablet 40 mg PO HS RF: 0 niacin 1,000 mg Tablet Extended Release 24 Hr 1,000 mg PO HS RF: 0 aspirin 325 mg Tablet 325 mg PO HS RF: 0 metformin 1,000 mg Tablet 1,000 mg PO BIDM RF: 0 losartan 25 mg Tablet 25 mg PO QPM RF: 0 gabapentin 300 mg Capsule 300 mg PO TID RF: 0 niacin 500 mg Capsule, Extended Release 500 mg PO HS RF: 0 diphenhydramine-acetaminophen [Tylenol PM Extra Strength] 25-500 mg Tablet 2 tab PO HS PRN (Reason: PAIN/SLEEP) RF: 0 omeprazole 20 mg Tablet,Delayed Release (Dr/Ec) 20 mg PO QAM RF: 0 Jardiance 10 mg Tablet 10 mg PO QAM RF: 0 diclofenac sodium 50 mg Tablet,Delayed Release (Dr/Ec) 50 mg PO TID Qty: 0 RF: 0 Discontinued duloxetine 30 mg Capsule,Delayed Release(Dr/Ec) 30 mg PO DAILY PRN (Reason: Back Pain) RF: 0 Stand-Alone Forms: Call Back Authorization, [facility] Discharge Orders: Discharge Order (Routine); Ordered 03/25/19 Ordered By: Dilip Casillas Admission Data Admit Date/Time: 03/22/19 03:52 Attending Provider: Dilip Casillas Admit Provider: Ranjith Rodriguez Primary Care Provider: Mena Hernández Other Providers: Ranjith Rodriguez ; Fredy Zambrano ; Pam Michelle ; Sylvia Hernandez ; Bennie Zuniga ; Ray Crane ; Janey Live ; Lynne Mack ; Renan Willett ; Vic Love ; Theodora Ordaz ; Gali Way ; Sarah Kraft ; Ana Molina ; Angel Hansen Service: Medical
[2019-03-25] MEDS ORDERED: metroNIDAZOLE 500 MG TAB PO SCH (14:00)
[2019-03-25] MEDS ORDERED: CIPROFLOXACIN 500 MG TAB PO SCH (21:00)
== END 2019-03-25 14:15 | disposition home or self-care (01) | DRG 440 ==
LOC: ED 02:26 → 2N 03:52